=== PATIENT | female | born 1940 | race Caucasian/White ===

== ENCOUNTER 2017-07-15 11:08 | Emergency (ER) | payer MEDICARE ==
[~2017-07-15 11:08] MED LIST: ALPR-138 PO; CELE200 PO; GABA600T PO; TRAM50TA PO
[2017-07-15] MEDS ORDERED: TRAM50TA PO (11:15)
[2017-07-15] MEDS ORDERED: ALBUAER3 INH (11:15)
[2017-07-15] MEDS ORDERED: ALPR0.25 PO (11:15)
[2017-07-15] MEDS ORDERED: GABA800T PO (11:15)
[2017-07-15 11:17] VITALS: BP 125/85; PULSE 100; RESP 22; TEMP 98.8; O2SAT 98
[2017-07-15] MEDS ORDERED: PROMETHAZINE/CODEINE 6.25 MG/10 MG/5 ML CUP PO ONE (11:30)
[2017-07-15] MEDS ORDERED: SODIUM CHLORIDE 0.9% FLUSH 10 ML FLUSH IVF PRN (11:30)
[2017-07-15] MEDS ORDERED: SODIUM CHLOR 0.9% 1000 ML INJ 1,000 ML IV SCH (11:30)
--- NOTE | 2017-07-15 12:00 | RADRPT ---
EXAM DATE/TIME: 07/15/2017 11:47 [facility] COMPARISON: No previous studies available for comparison. INDICATIONS : Shortness of breath, cough, congestion. MEDICAL HISTORY : Arthritis. Smoker. SURGICAL HISTORY : Hysterectomy. ENCOUNTER: Initial ACUITY: 3 days PAIN SCORE: 0/10 LOCATION: Bilateral chest FINDINGS: A single view of the chest demonstrates the lungs to be symmetrically aerated without evidence of mas s, infiltrate or effusion. The cardiomediastinal contours are unremarkable. Osseous structures are intact. CONCLUSION: Mild diffuse interstitial prominence throughout the lungs, no focal infiltrate Stone Salamanca MD on July 15, 2017 at 11:57 Board Certified Radiologist. This report was verified electronically.
[2017-07-15 12:01] VITALS: O2SAT 98
--- NOTE | 2017-07-15 12:02 | PD ---
HPI Chief Complaint: Cold / Flu Symptoms Time Seen by Provider: 11:21 Travel History International Travel<30 days: No Contact w/Intl Traveler<30days: No Traveled to known affect area: No History of Present Illness HPI This is a 77-year-old female who presents to the emergency department with shortness of breath it's been going on for 3-4 days, constant, worse in the evenings associated with a productive cough with clear sputum and some subjective fevers and chills and body aches. She has no history of heart disease or lung disease. She feels fatigued and she hasn't been sleeping well. 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) Psychiatric: Yes (SLIGHTLY CLAUSTROPHOBIC) Reproductive: No Respiratory: Yes (SMOKES 1/2 PPD) Immunizations Current: Yes Thyroid Disease: No Tetanus Vaccination: < 5 Years Menopausal: Yes Past Surgical History Abdominal Surgery: Yes (APPENDECTOMY) AICD: No Body Medical Devices: NONE Cardiac Surgery: No Ear Surgery: No Endocrine Surgery: No Eye Surgery: Yes (R EYE CATARACT REMOVAL 05/2014) Genitourinary Surgery: No Gynecologic Surgery: Yes (TUBAL LIGATION , TOTAL HYSTERECTOMY) Hysterectomy: Yes Joint Replacement: No Oral Surgery: Yes (TONSILLECTOMY; FULL DENTURES) Pacemaker: No Thoracic Surgery: No Other Surgery: Yes Social History Alcohol Use: No Tobacco Use: Yes (1 PK/DAY) Substance Use: No Allergies-Medications (Allergen,Severity, Reaction): Coded Allergies: No Known Allergies (Unverified Adverse Reaction, Unknown, 07/15/17) Reported Meds & Prescriptions Reported Meds & Active Scripts Active Reported Proair Hfa 8.5 GM Inh (Albuterol Sulfate) 90 Mcg/Act Aer 1 Puff INH Q4H PRN 108 mcg/actuation Alprazolam 0.25 Mg Tab 0.25 Mg PO BID PRN Gabapentin 800 Mg Tab 800 Mg PO QID Tramadol (Tramadol HCl) 50 Mg Tab 100 Mg PO Q6H PRN Review of Systems Except as stated in HPI: all other systems reviewed are Neg Physical Exam Narrative GENERAL: Frail elderly female in no acute distress SKIN: Focused skin assessment warm and dry. HEAD: Atraumatic. Normocephalic. EYES: Pupils equal and round. No injection or drainage. ENT: Moist mucous membranes NECK: Trachea midline. CARDIOVASCULAR: Regular rate and rhythm. No murmur appreciated. RESPIRATORY: Rales in the left lung base, no tachypnea or increased work of breathing GASTROINTESTINAL: Abdomen soft, non-tender, nondistended. MUSCULOSKELETAL: No obvious deformities. NEUROLOGICAL: Awake and alert. No obvious cranial nerve deficits. Moving all extremities. PSYCHIATRIC: Appropriate mood and affect; insight and judgment normal. Data Data Last Documented VS Vital Signs Date Time Temp Pulse Resp B/P (MAP) Pulse Ox O2 Delivery O2 Flow Rate FiO2 07/15/17 12:01 98 07/15/17 12:01 07/15/17 11:17 98.8 100 22 Orders Orders Complete Blood Count With Diff (07/15/17 11:28) Comprehensive Metabolic Panel (07/15/17 11:28) B-Type Natriuretic Peptide (07/15/17 11:28) Troponin I (07/15/17 11:28) Iv Access Insert/Monitor (07/15/17 11:28) Electrocardiogram (07/15/17 11:28) Ecg Monitoring (07/15/17 11:28) Oximetry (07/15/17 11:28) Oxygen Administration (07/15/17 11:28) Chest, Single Ap (07/15/17 11:28) Sodium Chloride 0.9% Flush (Ns Flush) (07/15/17 11:30) Sodium Chlor 0.9% 1000 Ml Inj (Ns 1000 M (07/15/17 11:30) Promethazine/Codeine Liq (Phenergan-Code (07/15/17 11:30) Influenzae A/B Antigen (07/15/17 11:28) Labs Laboratory Tests Test 07/15/17 11:50 White Blood Count 9.3 TH/MM3 Red Blood Count 4.36 MIL/MM3 Hemoglobin 13.0 GM/DL Hematocrit 38.9 % Mean Corpuscular Volume 89.1 FL Mean Corpuscular Hemoglobin 29.9 PG Mean Corpuscular Hemoglobin Concent 33.5 % Red Cell Distribution Width 14.7 % Platelet Count 206 TH/MM3 Mean Platelet Volume 10.2 FL Neutrophils (%) (Auto) 83.5 % Lymphocytes (%) (Auto) 7.9 % Monocytes (%) (Auto) 8.2 % Eosinophils (%) (Auto) 0.1 % Basophils (%) (Auto) 0.3 % Neutrophils # (Auto) 7.8 TH/MM3 Lymphocytes # (Auto) 0.7 TH/MM3 Monocytes # (Auto) 0.8 TH/MM3 Eosinophils # (Auto) 0.0 TH/MM3 Basophils # (Auto) 0.0 TH/MM3 CBC Comment DIFF FINAL Differential Comment Blood Urea Nitrogen 14 MG/DL Creatinine 0.66 MG/DL Random Glucose 145 MG/DL Total Protein 6.8 GM/DL Albumin 3.4 GM/DL Calcium Level 8.3 MG/DL Alkaline Phosphatase 121 U/L Aspartate Amino Transf (AST/SGOT) 45 U/L Alanine Aminotransferase (ALT/SGPT) 60 U/L Total Bilirubin 0.7 MG/DL Sodium Level 140 MEQ/L Potassium Level 3.8 MEQ/L Chloride Level 107 MEQ/L Carbon Dioxide Level 23.0 MEQ/L Anion Gap 10 MEQ/L Estimat Glomerular Filtration Rate 87 ML/MIN Troponin I LESS THAN 0.02 NG/ML B-Type Natriuretic Peptide 88 PG/ML MDM Medical Decision Making Medical Screen Exam Complete: Yes Emergency Medical Condition: Yes Interpretation(s) ekg: sinus tachycardia No leukocytosis Mild transaminitis Troponin is normal BNP is normal Last 24 hours Impressions Chest X-Ray 07/15/17 1128 Signed Impressions: Service Date/Time: June 11:47 - CONCLUSION: Mild diffuse interstitial prominence throughout the lungs, no focal infiltrate Stone Salamanca MD Differential Diagnosis pneumonia, bronchitis, viral syndrome, congestive heart failure, pleural effusion Narrative Course This is a 77-year-old female who presents to the emergency department with a persistent cough, generalized weakness and body aches. Chest x-ray demonstrates interstitial prominence throughout the lungs. She was placed on a monitor and an IV was established. Lab work is reassuring with a mild transaminitis and a normal troponin and BNP. I suspect the patient has walking pneumonia. Patient will be treated with azithromycin and codeine. I think she can be discharged home and follow-up with her primary care physician. Diagnosis Primary Impression: Acute interstitial pneumonia Patient Instructions: General Instructions Additional Instructions: If you develop severe chest pain, shortness of breath, sweating, lightheadedness , dizziness or difficulty breathing return to the emergency department immediately. Followup with your primary care physician in 2-3 days if your symptoms are not resolved. Med/Other Pt SpecificInfo: Prescription(s) given Scripts Promethazine-Codeine Liq (Promethazine-Codeine Liq) 6.25-10 Mg/5 Ml Syrp 5 ML PO Q6H Y for COUGH AND/OR COLD SYMPTOMS, #60 ML 0 Refills Prov: Santa Duong MD 07/15/17 Azithromycin (Azithromycin) 250 Mg Tab 250 MG PO DIRECTED for Infection, #6 TAB 0 Refills Take 2 tabs (500 mg) on day 1 then 1 tab daily x 4 days. Prov: Santa Duong MD 07/15/17 Disposition: 01 DISCHARGE HOME Condition: Stable Santa Duong MD Jul 15, 2017 12:02
[2017-07-15 12:07] LABS: AUTOMATED NEUTROPHIL # 7.8 TH/MM3 (1.8-7.7); BASOPHIL % 0.3 % (0.0-2.0); EOSINOPHIL % 0.1 % (0.0-4.0); HEMATOCRIT 38.9 % (35.0-46.0); LYMPH % 7.9 % (9.0-44.0); LYMPHOCYTE # 0.7 TH/MM3 (1.0-4.8); MEAN CELL VOLUME 89.1 FL (80.0-100.0); MEAN CORPUSCULAR HEMOGLOBIN 29.9 PG (27.0-34.0); MEAN CORPUSCULAR HGB CONC 33.5 % (32.0-36.0); MEAN PLATELET VOLUME 10.2 FL (7.0-11.0); MONO % 8.2 % (0.0-8.0); MONOCYTE # 0.8 TH/MM3 (0-0.9); NEUT % 83.5 % (16.0-70.0); PLATELET COUNT 206 TH/MM3 (150-450); RED BLOOD COUNT 4.36 MIL/MM3 (4.00-5.30); RED CELL DISTRIBUTION WIDTH 14.7 % (11.6-17.2); WHITE BLOOD COUNT 9.3 TH/MM3 (4.0-11.0)
[2017-07-15 12:26] LABS: ALBUMIN 3.4 GM/DL (3.4-5.0); AST (GOT) 45 U/L (15-37); BLOOD UREA NITROGEN 14 MG/DL (7-18); CALCIUM 8.3 MG/DL (8.5-10.1); CHLORIDE 107 MEQ/L (98-107); CREATININE 0.66 MG/DL (0.50-1.00); GLOMERULAR FILTRATION RATE 87 ML/MIN (>89); GLUCOSE,RANDOM 145 MG/DL (74-106); SODIUM (NA) 140 MEQ/L (136-145)
[2017-07-15 12:27] LABS: ALT (GPT) 60 U/L (10-53)
[2017-07-15 12:30] LABS: ALKALINE PHOSPHATASE 121 U/L (45-117); TOTAL BILIRUBIN ADULT 0.7 MG/DL (0.2-1.0); TOTAL PROTEIN 6.8 GM/DL (6.4-8.2); TROPONIN I LESS THAN 0.02 NG/ML (0.02-0.05)
[2017-07-15] MEDS ORDERED: PROM6.256 PO (13:10)
[2017-07-15] MEDS ORDERED: AZIT250T3 PO (13:10)
[2017-07-15] MEDS ORDERED: PRED20 PO (13:24)
[2017-07-15] MEDS ORDERED: methylPREDNISolone SOD SUCC 125 MG/2 ML VIAL IV PUSH ONE (13:30)
--- NOTE | 2017-07-16 23:44 | EKG ---
Date Performed: 07/15/2017 Time Performed: 12:01:10 PTAGE: 77 years EKG: SINUS TACHYCARDIA LOW QRS VOLTAGE NON-SPECIFIC ST/T WAVE CHANGES ABNORMAL ECG PREVIOUS TRACING : 07/15/2017 11.59 Compared to the previous tracing, rate has increased with n on-specific ST/T wave changes DOCTOR: Omar Sow Interpretating Date/Time 07/16/2017 23:42:36
== END 2017-07-15 13:35 | disposition home or self-care (01) ==
LOC: NEPD 11:08
DX: J84.9 Interstitial pulmonary disease, unspecified (principal); R00.0 Tachycardia, unspecified; R94.31 Abnormal electrocardiogram [ECG] [EKG]; M19.90 Unspecified osteoarthritis, unspecified site; G62.9 Polyneuropathy, unspecified; F40.240 Claustrophobia; F17.200 Nicotine dependence, unspecified, uncomplicated; Z79.899 Other long term (current) drug therapy
CPT/HCPCS: 71010; 80053; 83880; 84484; 85025; 87804; 93005; 96361; 96374; 99285; J2930; J7030

== ENCOUNTER 2017-07-16 08:51 | Inpatient (IN) | payer MEDICARE ==
[~2017-07-16] VITALS: Ht 160 cm; Wt 53.6 kg
[2017-07-16] VITALS (13 sets, daily range): BP systolic 70–175; BP diastolic 36–117; PULSE 88–115; RESP 17–28; TEMP 97.4–98.7; O2SAT 71–100
[~2017-07-16 08:51] MED LIST changes: +ALBUAER3 INH; -ALPR-138 PO; +ALPR0.25 PO; +AZIT250T3 PO; -CELE200 PO; -GABA600T PO; +GABA800T PO; +PRED20 PO; +PROM6.256 PO
[2017-07-16] MEDS ORDERED: CEFEPIME INJ 2,000 MG in SODIUM CHLORIDE 0.9% INJ 100 ML IV STA (09:08)
[2017-07-16] MEDS ORDERED: AZITHROMYCIN INJ 500 MG in SODIUM CHLOR 0.9% 250 ML INJ 250 ML IV STA (09:08)
[2017-07-16] MEDS ORDERED: RESP: ALBUTEROL 2.5 MG/IPRATROPIUM 0.5 MG NEB (SCH) INH ONE (09:15)
[2017-07-16] MEDS ORDERED: SODIUM CHLOR 0.9% 1000 ML INJ 1,000 ML IV ONE ×4 (09:15→12:00)
[2017-07-16 09:30] LABS: HEMATOCRIT 40.3 % (35.0-46.0); HEMOGLOBIN 13.1 GM/DL (11.6-15.3); LYMPH % 10.6 % (9.0-44.0); LYMPHOCYTE # 1.3 TH/MM3 (1.0-4.8); MEAN CELL VOLUME 90.7 FL (80.0-100.0); MEAN CORPUSCULAR HEMOGLOBIN 29.5 PG (27.0-34.0); MEAN CORPUSCULAR HGB CONC 32.5 % (32.0-36.0); MEAN PLATELET VOLUME 10.2 FL (7.0-11.0); MONOCYTE # 1.1 TH/MM3 (0-0.9); NEUT % 80.4 % (16.0-70.0); PLATELET COUNT 210 TH/MM3 (150-450); RED BLOOD COUNT 4.44 MIL/MM3 (4.00-5.30); RED CELL DISTRIBUTION WIDTH 15.7 % (11.6-17.2); WHITE BLOOD COUNT 12.5 TH/MM3 (4.0-11.0)
[2017-07-16 09:40] LABS: INTERNATIONAL NORMALIZED RATIO 1.3 RATIO; PROTHROMBIN TIME - PATIENT 12.7 SEC (9.8-11.6)
[2017-07-16 09:42] LABS: ALBUMIN 3.7 GM/DL (3.4-5.0); ALT (GPT) 60 U/L (10-53); AST (GOT) 34 U/L (15-37); BICARBONATE 18.6 MEQ/L (21.0-32.0); BLOOD UREA NITROGEN 30 MG/DL (7-18); CALCIUM 8.6 MG/DL (8.5-10.1); CHLORIDE 103 MEQ/L (98-107); CREATININE 1.68 MG/DL (0.50-1.00); GLOMERULAR FILTRATION RATE 29 ML/MIN (>89); GLUCOSE,RANDOM 200 MG/DL (74-106); LIPASE 117 U/L (73-393); SODIUM (NA) 138 MEQ/L (136-145)
[2017-07-16] MEDS ORDERED: RESP: ALBUTEROL 2.5 MG/IPRATROPIUM 0.5 MG NEB (SCH) NEB ONE (09:45)
[2017-07-16 09:47] LABS: ALKALINE PHOSPHATASE 122 U/L (45-117); TOTAL BILIRUBIN ADULT 0.6 MG/DL (0.2-1.0); TOTAL PROTEIN 7.3 GM/DL (6.4-8.2); TROPONIN I LESS THAN 0.02 NG/ML (0.02-0.05)
[2017-07-16 09:50] LABS: LACTIC ACID SEPSIS PROTOCOL 7.3 mmol/L (0.4-2.0)
[2017-07-16] MEDS ORDERED: ONDANSETRON HCL 4 MG/2 ML VIAL ONE (10:12)
--- NOTE | 2017-07-16 10:16 | RADRPT ---
EXAM DATE/TIME: 07/16/2017 09:52 [facility] COMPARISON: CHEST SINGLE AP, July 15, 2017, 11:47. INDICATIONS : Shortness of Breath MEDICAL HISTORY : Chronic obstructive pulmonary disease. SURGICAL HISTORY : Hysterectomy. ENCOUNTER: Initial ACUITY: 1 day PAIN SCORE: 0/10 LOCATION: Bilateral chest FINDINGS: Stable mild diffuse interstitial prominence. No new focal pleural or parenchymal opacities. Cardiac s ilhouette is enlarged similar to prior exam. Osseous structures are intact. CONCLUSION: 1. Cardiomegaly with stable mild positive fluid balance. 2. No significant interval change. Jack Barrientos MD on July 16, 2017 at 10:13 Board Certified Radiologist. This report was verified electronically.
[2017-07-16] MEDS ORDERED: NOREPINEPHRINE-DEXTROSE DRIP 250 ML IV PRN (11:30)
[2017-07-16] MEDS ORDERED: TERBUTALINE INJ 1 MG/ML AMP SQ PRN ×2 (11:30→19:45)
--- NOTE | 2017-07-16 11:30 | RADRPT ---
EXAM DATE/TIME: 07/16/2017 11:04 [facility] COMPARISON: CHEST SINGLE AP, July 16, 2017, 9:52. INDICATIONS : Post procedure. MEDICAL HISTORY : Chronic obstructive pulmonary disease. SURGICAL HISTORY : Hysterectomy. ENCOUNTER: Subsequent ACUITY: 1 day PAIN SCORE: 0/10 LOCATION: Bilateral chest FINDINGS: Right IJ central line with tip in the very proximal right atrium. Cardiac silhouette is enlarged. No new focal pleural or parenchymal opacities. No pneumothorax. Remainder of the exam is unchanged. CONCLUSION: 1. Right IJ central line with tip in the proximal right atrium. No pneumothorax. 2. Cardiomegaly with stable mild positive fluid balance. Jack Barrientos MD on July 16, 2017 at 11:27 Board Certified Radiologist. This report was verified electronically.
--- NOTE | 2017-07-16 11:43 | PD ---
HPI Chief Complaint: Respiratory Distress Time Seen by Provider: 09:05 Travel History International Travel<30 days: No Contact w/Intl Traveler<30days: No Traveled to known affect area: No History of Present Illness HPI Patient is a 77-year-old female who comes in from her doctor's office due to hypoxia and shortness of breath. She was seen here yesterday diagnosed with pneumonia and discharged with a prescription for azithromycin. She went to follow-up with her primary doctor today as directed, but while in the office, she passed out. She says she just been feeling very weak. Per EMS, she was cyanotic in the doctor's office. Her only complaint is of weakness and difficulty breathing. Per , she fell last night and her daughter helped her up. She denies any chest pain or abdominal pain. 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) Psychiatric: Yes (SLIGHTLY CLAUSTROPHOBIC) Reproductive: No Respiratory: Yes (SMOKES 1/2 PPD) Immunizations Current: Yes Thyroid Disease: No Menopausal: Yes Tubal Ligation: Yes Past Surgical History Abdominal Surgery: Yes (APPENDECTOMY) AICD: No Appendectomy: Yes Body Medical Devices: NONE Cardiac Surgery: No Ear Surgery: No Endocrine Surgery: No Eye Surgery: Yes (R EYE CATARACT REMOVAL 05/2014) Genitourinary Surgery: No Gynecologic Surgery: Yes (TUBAL LIGATION , TOTAL HYSTERECTOMY) Hysterectomy: Yes Joint Replacement: No Oral Surgery: Yes (TONSILLECTOMY; FULL DENTURES) Pacemaker: No Thoracic Surgery: No Other Surgery: Yes Social History Alcohol Use: No Tobacco Use: Yes Substance Use: No Allergies-Medications (Allergen,Severity, Reaction): Coded Allergies: No Known Allergies (Verified Adverse Reaction, Unknown, 07/16/17) Reported Meds & Prescriptions Reported Meds & Active Scripts Active Prednisone 20 Mg Tab 40 Mg PO DIRECTED 4 Days Promethazine-Codeine Liq 6.25-10 Mg/5 Ml Syrp 5 Ml PO Q6H PRN Azithromycin 250 Mg Tab 250 Mg PO DIRECTED Take 2 tabs (500 mg) on day 1 then 1 tab daily x 4 days. Reported Proair Hfa 8.5 GM Inh (Albuterol Sulfate) 90 Mcg/Act Aer 1 Puff INH Q4H PRN 108 mcg/actuation Alprazolam 0.25 Mg Tab 0.25 Mg PO BID PRN Gabapentin 800 Mg Tab 800 Mg PO QID Tramadol (Tramadol HCl) 50 Mg Tab 100 Mg PO Q6H PRN Review of Systems Except as stated in HPI: all other systems reviewed are Neg General / Constitutional: No: Fever, Chills Eyes: No: Blurred Vision HENT: No: Headaches, Lightheadedness Cardiovascular: No: Chest Pain or Discomfort Respiratory: Positive: Shortness of Breath, No: Cough Gastrointestinal: Positive: Nausea, No: Vomiting Musculoskeletal: No: Edema, Pain Skin: No Rash, No Change in Pigmentation Neurologic: Positive: Weakness Physical Exam Narrative GENERAL: Lethargic, but awakens easily. SKIN: Focused skin assessment warm/dry. HEAD: Atraumatic. Normocephalic. EYES: Pupils equal and round and reactive. No scleral icterus. Extraocular movements intact. ENT: Mucous membranes pink and moist. NECK: Trachea midline. No JVD. CARDIOVASCULAR: Regular rate and rhythm. No murmur appreciated. RESPIRATORY: No accessory muscle use. Clear to auscultation. Breath sounds equal bilaterally. GASTROINTESTINAL: Abdomen soft, non-tender, nondistended. MUSCULOSKELETAL: No obvious deformities. No clubbing. No cyanosis. No edema. NEUROLOGICAL: Awake and alert. No obvious cranial nerve deficits. Motor grossly within normal limits. Normal speech. PSYCHIATRIC: Appropriate mood and affect; insight and judgment normal. Data Data Last Documented VS Vital Signs Date Time Temp Pulse Resp B/P (MAP) Pulse Ox O2 Delivery O2 Flow Rate FiO2 07/16/17 12:15 159/79 (105) 07/16/17 12:15 88 07/16/17 09:33 98.4 24 100 BiPAP 07/16/17 09:04 80 Orders Orders Sepsis Workup Initiated (07/16/17 ) Electrocardiogram (07/16/17 09:08) Complete Blood Count With Diff (07/16/17 09:08) Comprehensive Metabolic Panel (07/16/17 09:08) Prothrombin Time / Inr (Pt) (07/16/17 09:08) Act Partial Throm Time (Ptt) (07/16/17 09:08) Lactic Acid Sepsis Protocol (07/16/17 09:08) Lipase (07/16/17 09:08) Ckmb (Isoenzyme) Profile (07/16/17 09:08) Troponin I (07/16/17 09:08) Urinalysis - C+S If Indicated (07/16/17 09:08) Blood Culture (07/16/17 09:08) Chest, Single Ap (07/16/17 09:08) Blood Glucose (07/16/17 09:08) Ecg Monitoring (07/16/17 09:08) Iv Access Insert/Monitor (07/16/17 09:08) Oximetry (07/16/17 09:08) Oxygen Administration (07/16/17 09:08) Cefepime Inj (Maxipime Inj) (07/16/17 09:08) Azithromycin Inj (Zithromax Inj) (07/16/17 09:08) Albuterol-Ipratropium Neb (Duoneb Neb) (07/16/17 09:15) Sodium Chlor 0.9% 1000 Ml Inj (Ns 1000 M (07/16/17 09:15) Sodium Chlor 0.9% 1000 Ml Inj (Ns 1000 M (07/16/17 09:15) Albuterol-Ipratropium Neb (Duoneb Neb) (07/16/17 09:45) Arterial Blood Gas (Abg) (07/16/17 ) CKMB (07/16/17 09:12) CKMB% (07/16/17 09:12) Ondansetron Inj (Zofran Inj) (07/16/17 10:12) Blood Gas Venous (Vbg) (07/16/17 10:06) Chest, Single Ap (07/16/17 ) Lactic Acid (07/16/17 11:15) Sodium Chlor 0.9% 1000 Ml Inj (Ns 1000 M (07/16/17 11:30) Norepinephrine-Dextrose Drip (Levophed-D (07/16/17 11:30) Terbutaline Inj (Brethine Inj) (07/16/17 11:30) Ondansetron Inj (Zofran Inj) (07/16/17 12:15) Metoclopramide Inj (Reglan Inj) (07/16/17 12:15) Admit Order (Ed Use Only) (07/16/17 ) Vancomycin Inj (Vancomycin Inj) (07/16/17 12:15) Labs Laboratory Tests Test 07/16/17 09:12 07/16/17 10:06 07/16/17 11:15 07/16/17 11:29 White Blood Count 12.5 TH/MM3 Red Blood Count 4.44 MIL/MM3 Hemoglobin 13.1 GM/DL Hematocrit 40.3 % Mean Corpuscular Volume 90.7 FL Mean Corpuscular Hemoglobin 29.5 PG Mean Corpuscular Hemoglobin Concent 32.5 % Red Cell Distribution Width 15.7 % Platelet Count 210 TH/MM3 Mean Platelet Volume 10.2 FL Neutrophils (%) (Auto) 80.4 % Lymphocytes (%) (Auto) 10.6 % Monocytes (%) (Auto) 9.0 % Eosinophils (%) (Auto) 0.0 % Basophils (%) (Auto) 0.0 % Neutrophils # (Auto) 10.0 TH/MM3 Lymphocytes # (Auto) 1.3 TH/MM3 Monocytes # (Auto) 1.1 TH/MM3 Eosinophils # (Auto) 0.0 TH/MM3 Basophils # (Auto) 0.0 TH/MM3 CBC Comment DIFF FINAL Differential Comment Prothrombin Time 12.7 SEC Prothromb Time International Ratio 1.3 RATIO Activated Partial Thromboplast Time 24.2 SEC Blood Urea Nitrogen 30 MG/DL Creatinine 1.68 MG/DL Random Glucose 200 MG/DL Total Protein 7.3 GM/DL Albumin 3.7 GM/DL Calcium Level 8.6 MG/DL Alkaline Phosphatase 122 U/L Aspartate Amino Transf (AST/SGOT) 34 U/L Alanine Aminotransferase (ALT/SGPT) 60 U/L Total Bilirubin 0.6 MG/DL Sodium Level 138 MEQ/L Potassium Level 4.0 MEQ/L Chloride Level 103 MEQ/L Carbon Dioxide Level 18.6 MEQ/L Anion Gap 16 MEQ/L Estimat Glomerular Filtration Rate 29 ML/MIN Lactic Acid Level 7.3 mmol/L 6.6 mmol/L Total Creatine Kinase 161 U/L Creatine Kinase MB 1.7 NG/ML Troponin I LESS THAN 0.02 NG/ML Lipase 117 U/L Blood Gas Puncture Site INTRA-VENOUS RT FEMORAL Blood Gas Patient Temperature 98.6 98.6 Venous Blood pH 7.19 Venous Blood Partial Pressure CO2 41 mmHg Venous Blood Partial Pressure O2 44 mmHg Venous Blood HCO3 15 mmol/L Venous Blood Oxygen Saturation 58 % Venous Blood Oxygen Content 9.1 Vol % Venous Blood Base Excess -11.5 mmol/L Oxygen Delivery Device BIPAP Non-Rebreathing Mask Blood Gas Ventilator Setting IPAP15/[id number] Blood Gas Inspired Oxygen 70 % 100 % Blood Gas HCO3 11 mmol/L Blood Gas Base Excess -14.6 mmol/L Blood Gas Oxygen Saturation 99 % Arterial Blood pH 7.26 Arterial Blood Partial Pressure CO2 26 mmHg Arterial Blood Partial Pressure O2 275 mmHG Arterial Blood Oxygen Content 16.5 Vol % Arterial Blood Carboxyhemoglobin 0.2 % Arterial Blood Methemoglobin 0.3 % Blood Gas Hemoglobin 11.4 G/DL Blood Gas Liter Flow 15 L/M Test 07/16/17 11:45 Urine Color YELLOW Urine Turbidity CLEAR Urine pH 6.0 Urine Specific [place] 1.031 Urine Protein 100 mg/dL Urine Glucose (UA) TRACE mg/dL Urine Ketones 10 mg/dL Urine Occult Blood MOD Urine Nitrite NEG Urine Bilirubin NEG Urine Urobilinogen 4.0 MG/DL Urine Leukocyte Esterase NEG Urine RBC 113 /hpf Urine WBC 1 /hpf Urine Hyaline Casts 3 /lpf Urine Mucus FEW /lpf Microscopic Urinalysis Comment CATH-CULT NOT IND MDM Medical Decision Making Medical Screen Exam Complete: Yes Emergency Medical Condition: Yes Medical Record Reviewed: Yes Interpretation(s) ECG shows sinus rhythm at 85, no ST elevation or depression, normal intervals Differential Diagnosis Sepsis versus pneumonia versus UTI versus PE versus ACS versus CHF Narrative Course Patient is a 77-year-old female who comes in from the doctor's office due to shortness of breath and weakness. EMS had an oxygen saturation in the 80s while on nonrebreather, patient was started on BiPAP. Blood pressure cannot be obtained, 2 L of fluids were given. Blood pressure improved into the 70s systolic. Labs sent show a lactic acid of 7.3. She was given an additional liter of fluids. However, she does have some fluid backing up into her lungs. Decision made to start her on Levophed. Right IJ was placed. Patient covered with broad-spectrum antibiotics, cefepime and azithromycin and vancomycin. CT scan ordered to check for PE, however GFR makes this test impossible. V/Q scan ordered. CT head ordered as patient fell last night. Given 3rd L of IVF. Patient will be admitted for further management. Critical Care Narrative Aggregate critical care time was 45 minutes. Time to perform other separately billable procedures was not included in the critical care time. My time did not include minutes spent treating any other patients simultaneously or on activities that did not directly contribute to the patient's treatment. The services I provided to this patient were to treat and/or prevent clinically significant deterioration that could result in: Serious illness or I provided critical care services requiring my management, as noted below: Chart data review, documentation time, medication orders and management, vital sign assessments/reviewing monitor data, ordering and reviewing lab tests, ordering and interpreting/reviewing x-rays and diagnostic studies, care of the patient and discussion of the patient with the admitting physicians. Procedures Procedure Narrative CENTRAL VENOUS LINE: The site was prepped with Betadine and sterilely draped. It was infiltrated with 1% lidocaine plain. The deep vein was cannulated using normal Seldinger technique. A triple lumen central line was placed in the right IJ site and secured with simple interrupted suture. The site was sterilely dressed. The patient tolerated the procedure well. Diagnosis Primary Impression: Severe sepsis Admitting Information Admitting Physician Requests: Admit Mary Gan MD Jul 16, 2017 11:43
[2017-07-16 12:09] LABS: BLOOD, URINE MOD (NEG); GLUCOSE,URINE TRACE mg/dL (NEG); HYALINE CAST, URINE 3 /lpf (RARE); KETONE, URINE 10 mg/dL (NEG); MUCUS URINE FEW /lpf (OCC); NITRITE,URINE NEG (NEG); URINE COLOR YELLOW (YELLW/STRAW); URINE LEUKOCYTE ESTERASE NEG (NEG)
[2017-07-16 12:12] LABS: BILIRUBIN, URINE NEG (NEG)
[2017-07-16] MEDS ORDERED: METOCLOPRAMIDE INJ 10 MG in SODIUM CHLORIDE 0.9% INJ 50 ML IV ONE (12:15)
[2017-07-16] MEDS ORDERED: ONDANSETRON HCL 4 MG/2 ML VIAL IV PUSH ONE (12:15)
[2017-07-16] MEDS ORDERED: VANCOMYCIN INJ 1,100 MG in SODIUM CHLOR 0.9% 250 ML INJ 250 ML IV ONE (12:15)
[2017-07-16] MEDS ORDERED: SODIUM BICARBONATE 8.4% INJ 50 MEQ/50 ML SYR IV PUSH ONE (13:00)
[2017-07-16] MEDS ORDERED: SENNOSIDES 8.6 MG TAB PO PRN (13:15)
[2017-07-16] MEDS ORDERED: GLUCAGON 1 MG/ML VIAL OTHER PRN (13:15)
[2017-07-16] MEDS ORDERED: LACTULOSE SYRUP 20 GM/30 ML CUP PO PRN (13:15)
[2017-07-16] MEDS ORDERED: SODIUM CHLORIDE 0.9% FLUSH 10 ML FLUSH IV FLUSH PRN ×2 (13:15→16:30)
[2017-07-16] MEDS ORDERED: ACETAMINOPHEN 325 MG TAB PO PRN ×2 (13:15→17:00)
[2017-07-16] MEDS ORDERED: MAGNESIUM HYDROXIDE SUSP 30 ML CUP PO PRN (13:15)
[2017-07-16] MEDS ORDERED: MISCELLANEOUS NURSING INFORMATION XX SCH (13:15)
[2017-07-16] MEDS ORDERED: BISACODYL 10 MG SUPP RECTAL PRN (13:15)
[2017-07-16] MEDS ORDERED: ONDANSETRON HCL 4 MG/2 ML VIAL IV PUSH PRN ×2 (13:15→16:30)
[2017-07-16] MEDS ORDERED: RESP: ALBUTEROL 2.5 MG/IPRATROPIUM 0.5 MG NEB (PRN) NEB (13:15)
[2017-07-16] MEDS ORDERED: DEXTROSE 50% IN WATER 50 ML VIAL(D50) IV PUSH PRN ×2 (13:15→16:30)
[2017-07-16] MEDS ORDERED: CHLORHEXIDINE GLUCONATE 2 % 1 PACK (2 CLOTHS) TOP PRN (13:15)
[2017-07-16] MEDS ORDERED: Vancomycin Consult Pharmacy 1 EA OTHER SCH (13:15)
--- NOTE | 2017-07-16 13:40 | HHI.HP ---
[facility] Service Critical Care Medicine Primary Care Physician Hima Marion, DO Admission Diagnosis Severe sepsis Diagnosis: Travel History International Travel<30 Days: No Contact w/Intl Traveler <30 Da: No Traveled to Known Affected Are: No Sepsis Criteria Severe Sepsis (+one): Lactate >2 History of Present Illness This is a 77-year-old female that presented from PCP office via ambulance due to hypoxia and shortness of breath. She was seen at [facility] diagnosed with pneumonia and discharged with a prescription for azithromycin, at that time her BP in P was within normal limits, and troponin was notably less than 0.02, and influenza antigen negative. Last evening it was reported by her in the middle of the night the patient went to the bathroom and fell question unknown if there was any LOC, her daughter picked her up and put her back to bed . This a.m., she was transported by family for follow-up with her PCP today as directed, but while in the office, she passed out. Per EMS, she was cyanotic in the doctor's office. Her only complaint is of weakness and difficulty breathing. She denied any chest pain or abdominal pain. Upon admission to the ED today the patient was noted to have an elevated lactate level, mild leukocytosis with a metabolic acidosis. The patient was noted to be hypotensive systolic blood pressure in the 70s, venous ABG was drawn her SVO2 was notably 58. The patient was bolused with 2 L IV fluid, and received azithromycin 500 mg, vancomycin 1 g, and cefepime 2 g. a central line was placed and the patient was initiated on norepinephrine infusion .The patient is was notably audibly wheezing initially on nonrebreather received 2 DuoNeb treatments and subsequently had been weaned down to nasal cannula 3 L with O2 saturation greater than 92%. A D-dimer was ordered. The patient upon presentation to the ED to be lethargic, easily arousable and answering questions appropriately. Upon entering the ED, the patient was lethargic but arousable answering my questions, blood pressure was 159/over 70s on norepinephrine at 2 mcgs/minute. Imaging studies CT brain, and chest are still pending. Critical care medicine was consulted. History 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) Psychiatric: Yes (SLIGHTLY CLAUSTROPHOBIC) Reproductive: No Respiratory: Yes (SMOKES 1/2 PPD) Immunizations Current: Yes Thyroid Disease: No Menopausal: Yes Tubal Ligation: Yes Past Surgical History Abdominal Surgery: Yes (APPENDECTOMY) AICD: No Appendectomy: Yes Body Medical Devices: NONE Cardiac Surgery: No Ear Surgery: No Endocrine Surgery: No Eye Surgery: Yes (R EYE CATARACT REMOVAL 05/2014) Genitourinary Surgery: No Gynecologic Surgery: Yes (TUBAL LIGATION , TOTAL HYSTERECTOMY) Hysterectomy: Yes Joint Replacement: No Oral Surgery: Yes (TONSILLECTOMY; FULL DENTURES) Pacemaker: No Thoracic Surgery: No Other Surgery: Yes Social History Alcohol Use: No Tobacco Use: Yes Substance Use: No Allergies-Medications Allergies-Medications (Allergen,Severity, Reaction): Coded Allergies: No Known Allergies (Verified Adverse Reaction, Unknown, 07/16/17) Reported Meds & Prescriptions Reported Meds & Active Scripts Active Prednisone 20 Mg Tab 40 Mg PO DIRECTED 4 Days Promethazine-Codeine Liq 6.25-10 Mg/5 Ml Syrp 5 Ml PO Q6H PRN Azithromycin 250 Mg Tab 250 Mg PO DIRECTED Take 2 tabs (500 mg) on day 1 then 1 tab daily x 4 days. Reported Proair Hfa 8.5 GM Inh (Albuterol Sulfate) 90 Mcg/Act Aer 1 Puff INH Q4H PRN 108 mcg/actuation Alprazolam 0.25 Mg Tab 0.25 Mg PO BID PRN Gabapentin 800 Mg Tab 800 Mg PO QID Tramadol (Tramadol HCl) 50 Mg Tab 100 Mg PO Q6H PRN ROS Review of Systems Except as stated in HPI: all other systems reviewed are Neg General / Constitutional: No: Fever, Chills Eyes: No: Blurred Vision HENT: No: Headaches, Lightheadedness Cardiovascular: No: Chest Pain or Discomfort Respiratory: Positive: Shortness of Breath, No: Cough Gastrointestinal: Positive: Nausea, No: Vomiting Musculoskeletal: No: Edema, Pain Skin: No Rash, No Change in Pigmentation Neurologic: Positive: Weakness Physical Exam Vital Signs Vital Signs Date Time Temp Pulse Resp B/P (MAP) Pulse Ox O2 Delivery O2 Flow Rate FiO2 07/16/17 12:15 88 159/79 07/16/17 11:00 79/48 (58) 07/16/17 10:30 88 175/110 (131) 07/16/17 09:33 98.4 97 24 171/117 (135) 100 BiPAP 07/16/17 09:04 100 80 07/16/17 08:53 108 28 72/36 (48) 72 Physical Exam GENERAL: This is a petite critically ill appearing female, in mild distress currently on nasal cannula SKIN: Warm and dry. Poor skin turgor, dry HEAD: Atraumatic. Normocephalic. EYES: Pupils equal and round and 3 mm reactive. EOMI No scleral icterus. No injection or drainage. ENT: No nasal bleeding or discharge. Mucous membranes pink and moist. NECK: Trachea midline. No JVD. CARDIOVASCULAR: Normal rate, regular rhythm.Muffled heart sounds RESPIRATORY: No accessory muscle use. Moderate inspiratory and expiratory wheezing. Breath sounds equal bilaterally. O2 3 L nasal cannula GASTROINTESTINAL: Abdomen soft, non-tender, nondistended. No guarding. MUSCULOSKELETAL: Extremities without clubbing, cyanosis, or edema. No obvious deformities. NEUROLOGICAL: Awake and alert. RASS -1. No gross focal/sensory deficits. Cranial nerves II-XII grossly intact Follows commands in all 4 extremities. Laboratory Laboratory Tests Test 07/16/17 09:12 07/16/17 10:06 07/16/17 11:15 07/16/17 11:29 White Blood Count 12.5 Red Blood Count 4.44 Hemoglobin 13.1 Hematocrit 40.3 Mean Corpuscular Volume 90.7 Mean Corpuscular Hemoglobin 29.5 Mean Corpuscular Hemoglobin Concent 32.5 Red Cell Distribution Width 15.7 Platelet Count 210 Mean Platelet Volume 10.2 Neutrophils (%) (Auto) 80.4 Lymphocytes (%) (Auto) 10.6 Monocytes (%) (Auto) 9.0 Eosinophils (%) (Auto) 0.0 Basophils (%) (Auto) 0.0 Neutrophils # (Auto) 10.0 Lymphocytes # (Auto) 1.3 Monocytes # (Auto) 1.1 Eosinophils # (Auto) 0.0 Basophils # (Auto) 0.0 CBC Comment DIFF FINAL Differential Comment Prothrombin Time 12.7 Prothromb Time International Ratio 1.3 Activated Partial Thromboplast Time 24.2 Blood Urea Nitrogen 30 Creatinine 1.68 Random Glucose 200 Total Protein 7.3 Albumin 3.7 Calcium Level 8.6 Alkaline Phosphatase 122 Aspartate Amino Transf (AST/SGOT) 34 Alanine Aminotransferase (ALT/SGPT) 60 Total Bilirubin 0.6 Sodium Level 138 Potassium Level 4.0 Chloride Level 103 Carbon Dioxide Level 18.6 Anion Gap 16 Estimat Glomerular Filtration Rate 29 Lactic Acid Level 7.3 6.6 Total Creatine Kinase 161 Creatine Kinase MB 1.7 Troponin I LESS THAN 0.02 Lipase 117 Blood Gas Puncture Site INTRA-VENOUS RT FEMORAL Blood Gas Patient Temperature 98.6 98.6 Venous Blood pH 7.19 Venous Blood Partial Pressure CO2 41 Venous Blood Partial Pressure O2 44 Venous Blood HCO3 15 Venous Blood Oxygen Saturation 58 Venous Blood Oxygen Content 9.1 Venous Blood Base Excess -11.5 Oxygen Delivery Device BIPAP Non-Rebreathing Mask Blood Gas Ventilator Setting IPAP15/EPAP5 Blood Gas Inspired Oxygen 70 100 Blood Gas HCO3 11 Blood Gas Base Excess -14.6 Blood Gas Oxygen Saturation 99 Arterial Blood pH 7.26 Arterial Blood Partial Pressure CO2 26 Arterial Blood Partial Pressure O2 275 Arterial Blood Oxygen Content 16.5 Arterial Blood Carboxyhemoglobin 0.2 Arterial Blood Methemoglobin 0.3 Blood Gas Hemoglobin 11.4 Blood Gas Liter Flow 15 Test 07/16/17 11:45 Urine Color YELLOW Urine Turbidity CLEAR Urine pH 6.0 Urine Specific [place] 1.031 Urine Protein 100 Urine Glucose (UA) TRACE Urine Ketones 10 Urine Occult Blood MOD Urine Nitrite NEG Urine Bilirubin NEG Urine Urobilinogen 4.0 Urine Leukocyte Esterase NEG Urine RBC 113 Urine WBC 1 Urine Hyaline Casts 3 Urine Mucus FEW Microscopic Urinalysis Comment CATH-CULT NOT IND Date/Time Source Procedure Growth Status 07/16/17 09:22 Blood Peripheral Aerobic Blood Culture Pending Received 07/16/17 09:22 Blood Peripheral Anaerobic Blood Culture Pending Received Result Diagram: 07/16/1712 07/16/1712 Imaging Last Impressions Chest X-Ray 07/16/17 0908 Signed Impressions: Service Date/Time: Sunday, July 16, 2017 09:52 - CONCLUSION: 1. Cardiomegaly with stable mild positive fluid balance. 2. No significant interval change. Jack Barrientos MD Course Pt subsequently went for imaging studies and became hemodynamically unstable in Nuclear Med. Pt stat transported to CVICU. Arterial line placed Pulsus paradoxicus. Stat EKG, low voltage all leads. Stat ECHO, noted Pericardial effusion. Stat consult to CTS, Dr Canales, to OR emergently for Pericardial Window. Septic Shock Reassessment Septic shock perfusion: reassessment completed Caprini VTE Risk Assessment Caprini VTE Risk Assessment: Mod/High Risk (score >= 2) Caprini Risk Assessment Model Point Value = 1 Point Value = 2 Point Value = 3 Point Value = 5 Age 41-60 Minor surgery BMI > 25 kg/m2 Swollen legs Varicose veins or History of unexplained or recurrent spontaneous Oral contraceptives or hormone replacement Sepsis (< 1 month) Serious lung disease, including pneumonia (< 1 month) Abnormal pulmonary function Acute myocardial infarction Congestive heart failure (< 1 month) History of inflammatory bowel disease Medical patient at bed rest Age 61-74 Arthroscopic surgery Major open surgery (> 45 min) Laparoscopic surgery (> 45 min) Malignancy Confined to bed (> 72 hours) Immobilizing plaster cast Central venous access Age >= 75 History of VTE Family history of VTE Factor V Leiden Prothrombin [id number] Lupus anticoagulant Anticardiolipin antibodies Elevated serum homocysteine Heparin-induced thrombocytopenia Other congenital or acquired thrombophilia Stroke (< 1 month) Elective arthroplasty Hip, pelvis, or leg fracture Acute spinal cord injury (< 1 month) Prophylaxis Regimen Total Risk Factor Score Risk Level Prophylaxis Regimen 0-1 Low Early ambulation 2 Moderate Order ONE of the following: *Sequential Compression Device (SCD) *Heparin 5000 units SQ BID 3-4 Higher Order ONE of the following medications: *Heparin 5000 units SQ TID *Enoxaparin/Lovenox 40 mg SQ daily (WT < 150 kg, CrCl > 30 mL/min) *Enoxaparin/Lovenox 30 mg SQ daily (WT < 150 kg, CrCl > 10-29 mL/min) *Enoxaparin/Lovenox 30 mg SQ BID (WT < 150 kg, CrCl > 30 mL/min) AND/OR *Sequential Compression Device (SCD) 5 or more Highest Order ONE of the following medications: *Heparin 5000 units SQ TID (Preferred with Epidurals) *Enoxaparin/Lovenox 40 mg SQ daily (WT < 150 kg, CrCl > 30 mL/min) *Enoxaparin/Lovenox 30 mg SQ daily (WT < 150 kg, CrCl > 10-29 mL/min) *Enoxaparin/Lovenox 30 mg SQ BID (WT < 150 kg, CrCl > 30 mL/min) AND *Sequential Compression Device (SCD) Assessment and Plan Assessment and Plan This is a 77-year-old female, with severe sepsis, dehydration with concerns for cardiopulmonary component secondary to a history of irregular heart beat, COPD and significant respiratory compromise. Concern neurological component secondary to lethargy and recent fall, with imaging studies still pending. Admit to ICU. Plan by systems: Neurologic: Lethargy Metabolic encephalopathy Neurochecks per ICU protocol Avoid sedative type medications at this time Obtain CT brain Obtain Ammonia level Tylenol for fever and/or pain Respiratory: Metabolic acidosis Acute hypoxemic respiratory failure COPD Maintain O2 sat greater than 92% Insert arterial line Initial ABG-7.26//275/11/-14.6 Initiate sodium bicarbonate infusion Na HCO3 2 amps IVP Cardiovascular: Cardiomegaly History of arrhythmia Cardiac Tamponade Pericardial effusion Maintain MAP greater than 65 Currently on norepinephrine at 2 mcgs/min continue to wean Monitor arterial pressure 07/16 EKG-sinus rhythm Obtain stat [id number] results-evaluate function and concern for right ventricular function- Noted Pericardial Effusion Stat consult -CTS Dr. Canales- To OR for emergent Pericardial Window Renal: Acute kidney injury Dehydration Insert Simpson -- Strict I/Os FEN/GI: Electrolyte derangement Metabolic acidosis 2/2 lactic acidemia Shock liver Replete electrolytes per ICU protocol Monitor BMP-creatinine 1.6, patient received 2 L normal saline IV in ED 2 amps NaHCO3 IVP Begin sodium bicarbonate infusion at 75 cc/an hour Heme/ID: Lactic acidemia Leukocytosis Coagulopathy Continue to trend lactate levels every 6 hours -Lactate 7.3->6.6 Monitor CBC Vit K 10 mg IV now- to OR type and screen- 4 FFP, 2 PRBC's quality control engineer Endocrine: Hyperglycemia of critical illness Glucose monitoring per ICU protocol -- SSI Prophylaxis: GI Prophylaxis Famotidine BID DVT Prophylaxis -- SCDs Heparin on hold, F/U CT brain and coag studies Lines: Peripheral IVs 2. Right IJ central line per ED 07/15 Dispo: my billing statement This patient remains critically ill with one or more organ systems which are or may become a threat to life. I have spent in excess of 67 minutes discontinuously in the care and management of this patient. This time is exclusive of procedures, and includes, but is not limited to, evaluation of the patient, review of the medical record, discussions with family, consultants, nursing staff, or respiratory therapy, and documentation in the medical record. Code Status Full Discussed Condition With , Dr. Gan and ED RN at bedside- Subsequently Dr. Canales , and Caridad Cornejo MD Jul 16, 2017 13:40
[2017-07-16] MEDS: RESP: ALBUTEROL 2.5 MG/IPRATROPIUM 0.5 MG NEB (SCH) NEB ×3 (13:56→20:46)
--- NOTE | 2017-07-16 14:30 | PD.CONS ---
History of Present Illness Service CT Surgery Consult Requested By Dr. Ken Reason for Consult Pericardial tamponade Primary Care Physician Hima Marion DO Diagnoses: (1) Pericardial effusion with cardiac tamponade History of Present Illness 77y/o female with flu-like symptoms x 2-3 days presents with dyspnea and hypotension. She was found to have a high INR and a large pericardial effusion on ECHO with tamponade physiology. She does not have any other pertinent PMH except irregular heartbeat, COPD, and tobacco abuse. Review of Systems ROS Limitations: Clinical Condition, Altered Mental Status Past Family Social History Allergies: Coded Allergies: No Known Allergies (Verified Adverse Reaction, Unknown, 07/16/17) Past Medical History as above Past Surgical History unknown Active Ordered Medications Current Medications Medications (Trade) Dose Ordered Sig/Marcela Route Start Time Stop Time Status Last Admin Norepinephrine Bitartrate 250 ml @ 7.5 mls/hr TITRATE PRN IV 07/16/17 11:30 07/16/17 12:15 (Brethine Inj) 1 mg UNSCH PRN SQ 07/16/17 11:30 Sodium Bicarbonate 150 meq/Dextrose 1,000 ml @ 75 mls/hr [id number] IV 07/16/17 14:00 (Duoneb Neb) 1 ampule Q6HR NEB NEB 07/16/17 13:15 07/16/17 13:56 (Duoneb Neb) 1 ampule Q2HR NEB PRN NEB 07/16/17 13:15 Cefepime HCl 2000 mg/Sodium Chloride 100 ml @ 200 mls/hr Q8H IV 07/16/17 18:00 Azithromycin 500 mg/Sodium Chloride 250 ml @ 250 mls/hr Q24H IV 07/17/17 10:00 Pharmacy Profile Note 0 ml @ 0 mls/hr UNSCH OTHER 07/16/17 13:15 (NS Flush) 2 ml UNSCH PRN IV FLUSH 07/16/17 13:15 (NS Flush) 2 ml BID IV FLUSH 07/16/17 21:00 (Tylenol) 650 mg Q6H PRN PO 07/16/17 13:15 (Pepcid Inj) 10 mg Q12HR IV PUSH 07/16/17 21:00 (Zofran Inj) 4 mg Q6H PRN IV PUSH 07/16/17 13:15 Miscellaneous Information 1 [id number] XX 07/16/17 13:15 (Chlorhexidine 2% Cloth) 3 pack Taper DAILY@04 TOP 07/17/17 04:00 07/13/18 03:59 (Chlorhexidine 2% Cloth) 3 pack UNSCH PRN TOP 07/16/17 13:15 (Lorin-Colace) 1 tab BID PO 07/16/17 21:00 (Milk Of Magnesia Liq) 30 ml Q12H PRN PO 07/16/17 13:15 (Senokot) 17.2 mg Q12H PRN PO 07/16/17 13:15 (Dulcolax Supp) 10 mg DAILY PRN RECTAL 07/16/17 13:15 (Lactulose Liq) 30 ml DAILY PRN PO 07/16/17 13:15 (D50w (Vial) Inj) 50 ml UNSCH PRN IV PUSH 07/16/17 13:15 (Glucagon Inj) 1 mg UNSCH PRN OTHER 07/16/17 13:15 (NovoLOG SUPPLEMENTAL SCALE) 1 ACHS SLIDING SCALE SQ 07/16/17 17:00 (SoluMEDROL INJ) 60 mg Q12HR IV PUSH 07/16/17 14:00 Phytonadione 10 mg/Sodium Chloride 51 ml @ 102 mls/hr ONCE ONCE IV 07/16/17 15:00 07/16/17 15:29 Family History unknown Social History Tobacco abuse Physical Exam Vital Signs Vital Signs Date Time Temp Pulse Resp B/P (MAP) Pulse Ox O2 Delivery O2 Flow Rate FiO2 07/16/17 12:15 159/79 (105) 07/16/17 12:15 88 159/79 07/16/17 11:00 79/48 (58) 07/16/17 10:30 88 175/110 (131) 07/16/17 09:33 98.4 97 24 171/117 (135) 100 BiPAP 07/16/17 09:04 100 80 07/16/17 08:53 108 28 72/36 (48) 72 Physical Exam GENERAL: This is an ill-appearing female in distress. SKIN: No rashes, ecchymoses or lesions. Cool and dry. HEAD: Atraumatic. Normocephalic. No temporal or scalp tenderness. EYES: Pupils equal round and reactive. Extraocular motions intact. No scleral icterus. No injection or drainage. ENT: Nose without bleeding, purulent drainage or septal hematoma. Throat without erythema, tonsillar hypertrophy or exudate. Uvula midline. Airway patent. NECK: Trachea midline. No JVD or lymphadenopathy. Supple, nontender, no meningeal signs. CARDIOVASCULAR: Regular rate and rhythm without murmurs, gallops, or rubs. RESPIRATORY: Clear to auscultation. Breath sounds equal bilaterally. No wheezes , rales, or rhonchi. GASTROINTESTINAL: Abdomen soft, non-tender, nondistended. No hepato-splenomegaly , or palpable masses. No guarding. MUSCULOSKELETAL: Extremities without clubbing, cyanosis, or edema. No joint tenderness, effusion, or edema noted. No calf tenderness. Negative Homans sign bilaterally. NEUROLOGICAL: Awake and alert. Cranial nerves II through XII intact. Motor and sensory grossly within normal limits. Five out of 5 muscle strength in all muscle groups. Normal speech. Laboratory Laboratory Tests Test 07/16/17 09:12 07/16/17 10:06 07/16/17 11:15 07/16/17 11:29 White Blood Count 12.5 Red Blood Count 4.44 Hemoglobin 13.1 Hematocrit 40.3 Mean Corpuscular Volume 90.7 Mean Corpuscular Hemoglobin 29.5 Mean Corpuscular Hemoglobin Concent 32.5 Red Cell Distribution Width 15.7 Platelet Count 210 Mean Platelet Volume 10.2 Neutrophils (%) (Auto) 80.4 Lymphocytes (%) (Auto) 10.6 Monocytes (%) (Auto) 9.0 Eosinophils (%) (Auto) 0.0 Basophils (%) (Auto) 0.0 Neutrophils # (Auto) 10.0 Lymphocytes # (Auto) 1.3 Monocytes # (Auto) 1.1 Eosinophils # (Auto) 0.0 Basophils # (Auto) 0.0 CBC Comment DIFF FINAL Differential Comment Prothrombin Time 12.7 Prothromb Time International Ratio 1.3 Activated Partial Thromboplast Time 24.2 Blood Urea Nitrogen 30 Creatinine 1.68 Random Glucose 200 Total Protein 7.3 Albumin 3.7 Calcium Level 8.6 Alkaline Phosphatase 122 Aspartate Amino Transf (AST/SGOT) 34 Alanine Aminotransferase (ALT/SGPT) 60 Total Bilirubin 0.6 Sodium Level 138 Potassium Level 4.0 Chloride Level 103 Carbon Dioxide Level 18.6 Anion Gap 16 Estimat Glomerular Filtration Rate 29 Lactic Acid Level 7.3 6.6 Total Creatine Kinase 161 Creatine Kinase MB 1.7 Troponin I LESS THAN 0.02 Lipase 117 Blood Gas Puncture Site INTRA-VENOUS RT FEMORAL Blood Gas Patient Temperature 98.6 98.6 Venous Blood pH 7.19 Venous Blood Partial Pressure CO2 41 Venous Blood Partial Pressure O2 44 Venous Blood HCO3 15 Venous Blood Oxygen Saturation 58 Venous Blood Oxygen Content 9.1 Venous Blood Base Excess -11.5 Oxygen Delivery Device BIPAP Non-Rebreathing Mask Blood Gas Ventilator Setting IPAP15/EPAP5 Blood Gas Inspired Oxygen 70 100 Blood Gas HCO3 11 Blood Gas Base Excess -14.6 Blood Gas Oxygen Saturation 99 Arterial Blood pH 7.26 Arterial Blood Partial Pressure CO2 26 Arterial Blood Partial Pressure O2 275 Arterial Blood Oxygen Content 16.5 Arterial Blood Carboxyhemoglobin 0.2 Arterial Blood Methemoglobin 0.3 Blood Gas Hemoglobin 11.4 Blood Gas Liter Flow 15 Test 07/16/17 11:45 07/16/17 14:00 Urine Color YELLOW Urine Turbidity CLEAR Urine pH 6.0 Urine Specific [place] 1.031 Urine Protein 100 Urine Glucose (UA) TRACE Urine Ketones 10 Urine Occult Blood MOD Urine Nitrite NEG Urine Bilirubin NEG Urine Urobilinogen 4.0 Urine Leukocyte Esterase NEG Urine RBC 113 Urine WBC 1 Urine Hyaline Casts 3 Urine Mucus FEW Microscopic Urinalysis Comment CATH-CULT NOT IND Blood Gas Puncture Site LT RADIAL Blood Gas Patient Temperature 98.6 Blood Gas HCO3 9 Blood Gas Base Excess -18.6 Blood Gas Oxygen Saturation 98 Arterial Blood pH 7.13 Arterial Blood Partial Pressure CO2 28 Arterial Blood Partial Pressure O2 227 Arterial Blood Oxygen Content 16.7 Arterial Blood Carboxyhemoglobin 0.0 Arterial Blood Methemoglobin 1.0 Blood Gas Hemoglobin 11.9 Oxygen Delivery Device NONREBREATHER Blood Gas Liter Flow 15 Date/Time Source Procedure Growth Status 07/16/17 09:22 Blood Peripheral Aerobic Blood Culture Pending Received 07/16/17 09:22 Blood Peripheral Anaerobic Blood Culture Pending Received Result Diagram: 07/16/1712 07/16/17911 Imaging Last Impressions Chest X-Ray 07/16/1708 Signed Impressions: Service Date/Time: Sunday, July 16, 2017 09:52 - CONCLUSION: 1. Cardiomegaly with stable mild positive fluid balance. 2. No significant interval change. Jack Barrientos MD Course Patient will be taken to the OR emergently Assessment and Plan Problem List: (1) Pericardial effusion with cardiac tamponade ICD Codes: I31.3 - Pericardial effusion (noninflammatory); I31.4 - Cardiac tamponade Status: Acute Assessment and Plan Emergency drainage of pericardial effusion Vitamin K FFP and blood ordered Discussed with [place] Canales MD Jul 16, 2017 14:30
[2017-07-16] MEDS ORDERED: ETOMIDATE 20 MG/10 ML VIAL ONE (14:31)
--- NOTE | 2017-07-16 14:48 | ECHRPT ---
Indication: shortness of breath CONCLUSIONS The left ventricular systolic function is normal with an estimated ejection fraction in the range of 60-65%. Normal left ventricular size. Wall thickness is normal. No regional wall motion abnormalities are present. Aortic valve sclerosis is present. There is trace tricuspid valve regurgitation. The estimated pulmonary arterial pressure is 24 mmHg. There is large pericardial effusion present. Echocardiographic features were consistent with hemodynamically significant pericardial effusion and tamponade physiology. BP: 159 / 79 HR: 88 Rhythm: Technical Quality: FINDINGS LEFT VENTRICLE The left ventricular systolic function is normal with an estimated ejection fraction in the range of 60-65%. Normal left ventricular size. Wall thickness is normal. No regional wall motion abnormalities are present. RIGHT VENTRICLE Normal right ventricular size and systolic function. LEFT ATRIUM The left atrial size is normal. RIGHT ATRIUM The right atrial size is normal. ATRIAL SEPTUM Normal atrial septal thickness without atrial level shunting by limited color doppler interrogation. AORTA The aortic root and proximal ascending aorta are normal in size on limited imaging. MITRAL VALVE Structurally normal mitral valve. No mitral valve stenosis or regurgitation. AORTIC VALVE Trileaflet aortic valve. Aortic valve sclerosis is present. TRICUSPID VALVE Structurally normal tricuspid valve. There is trace tricuspid valve regurgitation. The estimated pulmonary arterial pressure is 24 mmHg. PULMONARY VALVE The pulmonary valve is not well visualized. VESSELS The inferior vena cava is normal in size. PERICARDIUM There is large pericardial effusion present. Echocardiographic features were consistent with hemodynamically significant pericardial effusion and tamponade physiology. Tomi Sweeney MD, FACC (Electronically Signed) Final Date:16 July 2017 14:47
[2017-07-16] MEDS ORDERED: PHYTONADIONE INJ 10 MG in SODIUM CHLORIDE 0.9% INJ 50 ML IV ONE (15:00)
[2017-07-16] MEDS ORDERED: BUPIVACAINE HCL PF 0.5% 30 ML VIAL ONE (15:08)
[2017-07-16] MEDS ORDERED: ceFAZolin 2 GM PREMIX 50 ML IV ONE (15:14)
[2017-07-16] MEDS ORDERED: CALCIUM CHLORIDE INJ 1 GM in SODIUM CHLORIDE 0.9% INJ 100 ML IV PRN (15:30)
--- NOTE | 2017-07-16 15:41 | PD.OP ---
cc: Eliot Marion D.O.; [place]ia Canales MD Operative Report Date of Surgery: Jul 16, 2017 Preoperative Diagnosis: (1) Pericardial effusion with cardiac tamponade Postoperative Diagnosis: same Procedure: Emergency pericardial window Anesthesia: Dr. Piper Surgeon: Albania Canales Glove Examiner(s): Clare Pacheco, DAVIS Operation and Findings: The patient was taken to the OR emergently in hemodynamically unstable condition. After a time out, the patient was prepped and draped in the usual manner. A midline incision was made over the xyphoid and electrocautery was used to carry the dissection down to the xyphoid. The xyphoid was isolated and removed sharply. A plane was developed behind the sternum and it was retracted anteriorly. The pericardium was identified and entered sharply. Fluid was collected in sputum traps and submitted for cytology and cultures. Approximately 900 ml of bloody fluid was suctioned. The patient was hemodynamically stable once this fluid was drained. A 32F right angle chest tube was placed posteriorly in the pericardial space through a separate skin incision. This was secured with a 0-silk sutrure. The wound was irrigated an closed in 3 layers. All sponge and instrument counts were correct and the patient was transferred to the CVICU in stable condition. Albania Canales MD Jul 16, 2017 15:41
[2017-07-16] MEDS ORDERED: fentaNYL DRIP 250 ML IV PRN (15:45)
[2017-07-16] MEDS ORDERED: RESP: ALBUTEROL 2.5 MG/IPRATROPIUM 0.5 MG NEB (SCH) NEB (16:00)
[2017-07-16] MEDS: SODIUM BICARBONATE 8.4% INJ 150 MEQ in DEXTROSE 5% IN WATE 1000ML INJ 850 ML IV SCH ×2 (16:21)
[2017-07-16] MEDS ORDERED: LACTATED RINGER'S 1000 ML INJ 500 ML IV PRN (16:30)
[2017-07-16] MEDS ORDERED: ALBUMIN 5% INJ 250 ML IV PRN (16:30)
[2017-07-16] MEDS ORDERED: hydrALAZINE HCL 20 MG/ML VIAL IV PUSH PRN (16:30)
[2017-07-16] MEDS ORDERED: METOPROLOL TARTRATE 5 MG/5 ML VIAL IV PUSH PRN (16:30)
[2017-07-16] MEDS ORDERED: SODIUM BICARBONATE 8.4% SOLN 50 MEQ/50 ML VIAL IV PUSH PRN ×2 (16:30)
[2017-07-16] MEDS ORDERED: RESP: RACEPINEPHRINE 2.25% 0.5 ML NEB NEB PRN (16:30)
[2017-07-16] MEDS: methylPREDNISolone SOD SUCC 125 MG/2 ML VIAL IV PUSH SCH ×2 (16:32→21:57)
[2017-07-16 16:54] LABS: HEMATOCRIT 32.5 % (35.0-46.0); HEMOGLOBIN 10.7 GM/DL (11.6-15.3); MEAN CELL VOLUME 91.1 FL (80.0-100.0); MEAN CORPUSCULAR HEMOGLOBIN 30.1 PG (27.0-34.0); MEAN PLATELET VOLUME 10.1 FL (7.0-11.0); PLATELET COUNT 129 TH/MM3 (150-450); RED BLOOD COUNT 3.57 MIL/MM3 (4.00-5.30); RED CELL DISTRIBUTION WIDTH 15.2 % (11.6-17.2); WHITE BLOOD COUNT 13.3 TH/MM3 (4.0-11.0)
[2017-07-16] MEDS ORDERED: INSULIN REGULAR (IV INFUSION) 100 UNITS in SODIUM CHLORIDE 0.9% INJ 99 ML IV PRN (17:00)
[2017-07-16] MEDS ORDERED: CLEVIDIPINE INJ 50 ML IV PRN (17:00)
[2017-07-16] MEDS ORDERED: POTASSIUM CHLOR 20 MEQ PREMIX 100 ML IV PRN ×2 (17:00)
[2017-07-16] MEDS ORDERED: ACETAMINOPHEN 650 MG SUPP RECTAL PRN (17:00)
[2017-07-16] MEDS ORDERED: CALCIUM CHLORIDE 10% 1 GRAM/10 ML VIAL IV PUSH PRN (17:00)
[2017-07-16] MEDS ORDERED: DEXMEDETOMIDINE INJ 200 MCG in SODIUM CHLORIDE 0.9% INJ 50 ML IV PRN (17:00)
[2017-07-16] MEDS ORDERED: INSULIN ASPART SUPPLEMENTAL SCALE SQ SCH (17:00)
[2017-07-16] MEDS ORDERED: POTASSIUM CHLORIDE 20 MEQ CONTROLLED RELEASE TAB PO PRN ×2 (17:00)
[2017-07-16] MEDS ORDERED: Post-op Orders (for Pharmacy) OTHER ONE (17:00)
[2017-07-16] MEDS ORDERED: DEXMEDETOMIDINE INJ 400 MCG in SODIUM CHLORIDE 0.9% INJ 96 ML IV PRN (17:00)
--- NOTE | 2017-07-16 17:02 | RADRPT ---
EXAM DATE/TIME: 07/16/2017 16:13 [facility] COMPARISON: CHEST SINGLE AP, July 16, 2017, 11:04. 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 MEDICAL HISTORY : Chronic obstructive pulmonary disease. SURGICAL HISTORY : CABG. Hysterectomy. ENCOUNTER: Subsequent ACUITY: 1 day PAIN SCORE: Non-responsive. LOCATION: Bilateral chest FINDINGS: ET tube, central venous catheter and mediastinal drain in good position. Mild compensated cardiomega ly negative for pneumothorax CONCLUSION: 1. Support apparatus in good position. 2. Negative for pneumothorax Mild complete cardiomegaly Rob Leon MD FACR on July 16, 2017 at 16:59 Board Certified Radiologist. This report was verified electronically.
[2017-07-16 17:03] LABS: INTERNATIONAL NORMALIZED RATIO 1.6 RATIO; PROTHROMBIN TIME - PATIENT 16.1 SEC (9.8-11.6)
[2017-07-16] MEDS ORDERED: MAGNESIUM SULFATE INJ 2 GM in SODIUM CHLORIDE 0.9% INJ 100 ML IV PRN ×4 (17:15)
--- NOTE | 2017-07-16 17:39 | EKG ---
Date Performed: 07/16/2017 Time Performed: 10:53:30 PTAGE: 77 years EKG: Sinus rhythm LOW QRS VOLTAGE ABNORMAL ECG Compared to the PREVIOUS TRACING from 07/15/17, rate has decreased and non-specific ST/T wave changes no longer noted DOCTOR: Omar Sow Interpretating Date/Time 07/16/2017 17:37:33
[2017-07-16] MEDS ORDERED: CEFEPIME INJ 2,000 MG in SODIUM CHLORIDE 0.9% INJ 100 ML IV SCH (18:00)
[2017-07-16] MEDS ORDERED: SODIUM CHLORID 0.9% 500 ML INJ 500 ML IV ONE ×3 (18:15→21:30)
[2017-07-16 18:54] LABS: ALBUMIN 2.4 GM/DL (3.4-5.0); ALKALINE PHOSPHATASE 105 U/L (45-117); ALT (GPT) 78 U/L (10-53); AST (GOT) 122 U/L (15-37); BICARBONATE 23.4 MEQ/L (21.0-32.0); BLOOD UREA NITROGEN 30 MG/DL (7-18); CALCIUM 8.6 MG/DL (8.5-10.1); CHLORIDE 113 MEQ/L (98-107); CREATININE 1.41 MG/DL (0.50-1.00); GLOMERULAR FILTRATION RATE 36 ML/MIN (>89); GLUCOSE,RANDOM 168 MG/DL (74-106); SODIUM (NA) 150 MEQ/L (136-145); TOTAL BILIRUBIN ADULT 0.8 MG/DL (0.2-1.0); TOTAL PROTEIN 4.9 GM/DL (6.4-8.2); TROPONIN I 0.25 NG/ML (0.02-0.05)
[2017-07-16] MEDS ORDERED: NOREPINEPHRINE 4 MG/D5W 250 ML IV PRN (19:30)
[2017-07-16] MEDS ORDERED: PHENYLEPHRINE 40 MG in D5W 500 ML IV PRN (19:45)
[2017-07-16] MEDS: SODIUM CHLOR 0.9% 1000 ML INJ 1,000 ML IV SCH (20:55)
[2017-07-16] MEDS: DOCUSATE SODIUM 50 MG/SENNA 8.6 MG TAB PO SCH (21:00)
[2017-07-16] MEDS: SODIUM CHLORIDE 0.9% FLUSH 10 ML FLUSH IV FLUSH SCH (21:00)
[2017-07-16] MEDS ORDERED: SODIUM CHLORIDE 0.9% FLUSH 10 ML FLUSH IV FLUSH SCH (21:00)
[2017-07-16] MEDS ORDERED: FAMOTIDINE 20 MG/2 ML VIAL IV PUSH SCH (21:00)
[2017-07-16 21:06] LABS: FREE T3 0.99 PG/ML (2.18-3.98); LDH SERUM 346 U/L (84-246)
[2017-07-16 21:58] LABS: CARCINOEMBRYONIC ANTIGEN 0.9 NG/ML (0.2-5.0)
[2017-07-16 22:35] LABS: CA 19-9 15.2 U/ML (0.0-35.0)
[2017-07-16 22:36] LABS: CA 125 42.8 U/ML (0.0-30.2)
[2017-07-16 22:46] LABS: CA 15-3 19.1 U/ML (0.0-32.4)
[2017-07-16] MEDS: CHLORHEXIDINE 0.12% (ORAL KIT) 15 ML CUP MT SCH (23:53)
[2017-07-17] VITALS (12 sets, daily range): BP systolic 94–135; BP diastolic 62–79; PULSE 96–108; RESP 14–21; TEMP 97.4–98.6; O2SAT 91–98
[2017-07-17 00:50] LABS: PERICARDIAL HISTIOCYTES 64 %; PERICARDIAL LYMPHS 6 %; PERICARDIAL MESOTHELIAL 8 %; PERICARDIAL MONOS 1 %; PERICARDIAL POLYS(SEGS) 21 %; PERICARDIAL RBC 1419736 /MM3 (0-0); PERICARDIAL WBC 11335 /MM3 (0-10)
[2017-07-17] MEDS: SODIUM BICARBONATE 8.4% INJ 150 MEQ in DEXTROSE 5% IN WATE 1000ML INJ 850 ML IV SCH ×2 (03:20)
[2017-07-17] MEDS: RESP: ALBUTEROL 2.5 MG/IPRATROPIUM 0.5 MG NEB (SCH) NEB ×4 (03:42→20:51)
[2017-07-17] MEDS: CHLORHEXIDINE GLUCONATE 2 % 1 PACK (2 CLOTHS) TOP SCH (04:00)
[2017-07-17 04:25] LABS: AUTOMATED NEUTROPHIL # 14.3 TH/MM3 (1.8-7.7); BASOPHIL # 0.1 TH/MM3 (0-0.2); BASOPHIL % 0.6 % (0.0-2.0); HEMATOCRIT 33.1 % (35.0-46.0); HEMOGLOBIN 11.2 GM/DL (11.6-15.3); LYMPH % 4.4 % (9.0-44.0); LYMPHOCYTE # 0.7 TH/MM3 (1.0-4.8); MEAN CELL VOLUME 89.9 FL (80.0-100.0); MEAN CORPUSCULAR HEMOGLOBIN 30.5 PG (27.0-34.0); MEAN CORPUSCULAR HGB CONC 33.9 % (32.0-36.0); MEAN PLATELET VOLUME 10.1 FL (7.0-11.0); MONO % 7.3 % (0.0-8.0); MONOCYTE # 1.2 TH/MM3 (0-0.9); NEUT % 87.7 % (16.0-70.0); PLATELET COUNT 122 TH/MM3 (150-450); RED BLOOD COUNT 3.68 MIL/MM3 (4.00-5.30); RED CELL DISTRIBUTION WIDTH 14.9 % (11.6-17.2); WHITE BLOOD COUNT 16.3 TH/MM3 (4.0-11.0)
[2017-07-17 04:33] LABS: INTERNATIONAL NORMALIZED RATIO 1.6 RATIO; PROTHROMBIN TIME - PATIENT 16.1 SEC (9.8-11.6)
[2017-07-17] MEDS: SODIUM CHLOR 0.9% 1000 ML INJ 1,000 ML IV SCH (04:37)
[2017-07-17 04:50] LABS: LACTIC ACID SEPSIS PROTOCOL 3.8 mmol/L (0.4-2.0)
[2017-07-17 05:01] LABS: ALBUMIN 2.4 GM/DL (3.4-5.0); BICARBONATE 23.9 MEQ/L (21.0-32.0); CALCIUM 7.5 MG/DL (8.5-10.1); CREATININE 1.16 MG/DL (0.50-1.00); DIRECT BILIRUBIN ADULT 0.4 MG/DL (0.0-0.2); MAGNESIUM 1.9 MG/DL (1.5-2.5)
[2017-07-17 05:04] LABS: INDIRECT BILIRUBIN 0.2 MG/DL (0.0-0.8); RANDOM VANCOMYCIN 15.7 COMMENT; TOTAL BILIRUBIN ADULT 0.6 MG/DL (0.2-1.0); TOTAL PROTEIN 4.8 GM/DL (6.4-8.2); TROPONIN I 0.58 NG/ML (0.02-0.05)
[2017-07-17] MEDS: PANTOPRAZOLE SOD 40 MG DELAYED RELEASE TAB PO SCH (06:00)
[2017-07-17] MEDS: PANTOPRAZOLE SODIUM 40 MG VIAL IV PUSH SCH (06:13)
--- NOTE | 2017-07-17 06:47 | RADRPT ---
EXAM DATE/TIME: 07/17/2017 03:59 [facility] COMPARISON: CHEST SINGLE AP, July 16, 2017, 16:13. INDICATIONS : Shortness of breath, possible pneumothorax. MEDICAL HISTORY : Chronic obstructive pulmonary disease. SURGICAL HISTORY : Hysterectomy. ENCOUNTER: Subsequent ACUITY: 2 days PAIN SCORE: 0/10 LOCATION: Bilateral chest FINDINGS: Endotracheal tube gone nasogastric tube remain in stable position. There has been interval exchange o r retraction of right neck central line with tip now overlying the SVC at the level of the azygos vei n. There is persistent hazy bibasilar parenchymal opacity. Accounting for rotation, cardiac contours are unchanged.. CONCLUSION: No significant interval change in aeration. Arun Tanner MD on July 17, 2017 at 6:44 Board Certified Radiologist. This report was verified electronically.
[2017-07-17] MEDS ORDERED: GLUCAGON 1 MG/ML VIAL OTHER PRN ×2 (07:30→09:45)
[2017-07-17] MEDS ORDERED: DEXTROSE 50% IN WATER 50 ML VIAL(D50) IV PUSH PRN ×2 (07:30→09:45)
--- NOTE | 2017-07-17 07:32 | PD.PROCEDR ---
Procedure Note Procedure This procedure was performed 07/16/2017-late entry note Procedure: Arterial Line Placement Right radial-emergent Diagnosis: Hemodynamic instability Indications: Hemodynamic instability Consent: Emergent Description of the Procedure: The right wrist was prepped and draped sterilely. 1% lidocaine was used for local anesthesia. The pulse was located and a needle was advanced into the artery. A 20 gauge, 1.34 cm catheter was advanced into the artery using a modified Seldinger technique. The catheter was sutured to the skin and a sterile dressing was applied. The catheter was connected to a pressure transducer and an arterial waveform was noted. There were no immediate complications noted. There was minimal EBL. I personally performed the procedure. Caridad Ken MD Jul 17, 2017 07:32
[2017-07-17] MEDS: INSULIN ASPART SUPPLEMENTAL SCALE SQ SCH ×8 (08:00→22:00)
[2017-07-17 08:20] LABS: HEMOGLOBIN A1C 5.4 % (4.3-6.0)
--- NOTE | 2017-07-17 08:22 | HHI.CCPN ---
Subjective Remarks/Hospital Course This is a 77-year-old female that presented from PCP office via ambulance due to hypoxia and shortness of breath. She was seen at [facility] diagnosed with pneumonia and discharged with a prescription for azithromycin, at that time her BP in P was within normal limits, and troponin was notably less than 0.02, and influenza antigen negative. Last evening it was reported by her in the middle of the night the patient went to the bathroom and fell question unknown if there was any LOC, her daughter picked her up and put her back to bed . This a.m., she was transported by family for follow-up with her PCP today as directed, but while in the office, she passed out. Per EMS, she was cyanotic in the doctor's office. Her only complaint is of weakness and difficulty breathing. She denied any chest pain or abdominal pain. Upon admission to the ED today the patient was noted to have an elevated lactate level, mild leukocytosis with a metabolic acidosis. The patient was noted to be hypotensive systolic blood pressure in the 70s, venous ABG was drawn her SVO2 was notably 58. The patient was bolused with 2 L IV fluid, and received azithromycin 500 mg, vancomycin 1 g, and cefepime 2 g. a central line was placed and the patient was initiated on norepinephrine infusion .The patient is was notably audibly wheezing initially on nonrebreather received 2 DuoNeb treatments and subsequently had been weaned down to nasal cannula 3 L with O2 saturation greater than 92%. A D-dimer was ordered. The patient upon presentation to the ED to be lethargic, easily arousable and answering questions appropriately. Upon entering the ED, the patient was lethargic but arousable answering my questions, blood pressure was 159/over 70s on norepinephrine at 2 mcgs/minute. Imaging studies CT brain, and chest are still pending. Critical care medicine was consulted. Subjective: 07/17: Upon admission to CVICU on 07/16. The patient was noted to have increasing chest pain increasing difficulty breathing. Inability to obtain blood pressure by Dinamap , and 12-lead EKG had been obtained showing low voltage in all leads. An art line was placed, and a stat echo was performed showing a large pericardial effusion/cardiac tamponade. The patient was emergently transported to [facility], 900 cc fluid removed and mediastinal chest tube placed. No fluid labs sent for cytology, immunology, and ruling out an infectious process. WBC count of pleural fluid was noted to be significantly elevated. Pain patient continues on antibiotics, ID consulted appreciate recommendations. Throughout the night the patient maintained hemodynamic stability currently on phenylephrine 50 mcgs/minute. This a.m. the patient is alert and oriented, CPAP trials underway with anticipation for extubation. The patient continues to be coagulopathic, INR 1.6 this a.m. with no active signs of bleeding, and minimal chest tube output. FFP and cryoprecipitate ordered. Plan for CT of the abdomen and pelvis post extubation. Lactic acid noted to be downtrending. Objective Vital Signs Date Time Temp Pulse Resp B/P (MAP) Pulse Ox O2 Delivery O2 Flow Rate FiO2 07/17/17 07:10 40 07/17/17 07:08 95 07/17/17 05:50 99 104/72 07/17/17 03:00 Mechanical Ventilator 07/17/17 03:00 98.0 21 07/16/17 13:50 4.00 Intake and Output 07/17/17 07/17/17 07/18/17 08:00 16:00 00:00 Intake Total 1931 ml Output Total 355 ml Balance 1576 ml Result Diagram: 07/17/17 0410 07/17/17 0410 Other Results Microbiology Date/Time Source Procedure Growth Status 07/16/17 11:45 Urine Catheterized Urine Legionella Antigen - Final PRESUMPTIVE NEGATIVE FOR LEGIONELLA P... Complete 07/16/17 11:45 Urine Catheterized Urine Streptococcus pneumoniae Antigen (M - Final PRESUMPTIVE NEGATIVE FOR STREPTOCOCCU... Complete Laboratory Tests Test 07/16/17 10:06 07/16/17 11:29 07/16/17 14:00 07/16/17 17:02 Blood Gas Puncture Site INTRA-VENOUS RT FEMORAL LT RADIAL PK Blood Gas Patient Temperature 98.6 98.6 98.6 98.6 Venous Blood pH 7.19 (7.360-7.400) Venous Blood Partial Pressure CO2 41 mmHg (44-48) Venous Blood Partial Pressure O2 44 mmHg (35-40) Venous Blood HCO3 15 mmol/L (22-26) Venous Blood Oxygen Saturation 58 % (70-76) Venous Blood Oxygen Content 9.1 Vol % (9.0-17.0) Venous Blood Base Excess -11.5 mmol/L (-2-2) Oxygen Delivery Device BIPAP Non-Rebreathing Mask NONREBREATHER VENTILATOR Blood Gas Ventilator Setting IPAP15/EPAP5 A/C425/15/PEEP5 Blood Gas Inspired Oxygen 70 % 100 % 50 % Blood Gas HCO3 11 mmol/L (22-26) 9 mmol/L (22-26) 23 mmol/L (22-26) Blood Gas Base Excess -14.6 mmol/L (-2-2) -18.6 mmol/L (-2-2) -3.8 mmol/L (-2-2) Blood Gas Oxygen Saturation 99 % (90-100) 98 % (90-100) 92 % (90-100) Arterial Blood pH 7.26 (7.380-7.420) 7.13 (7.380-7.420) 7.22 (7.380-7.420) Arterial Blood Partial Pressure CO2 26 mmHg (38-42) 28 mmHg (38-42) 58 mmHg (38-42) Arterial Blood Partial Pressure O2 275 mmHG (61-120) 227 mmHg (61-120) 92 mmHg (61-120) Arterial Blood Oxygen Content 16.5 Vol % (12.0-20.0) 16.7 Vol % (12.0-20.0) 14.6 Vol % (12.0-20.0) Arterial Blood Carboxyhemoglobin 0.2 % (0-4) 0.0 % (0-4) 0.2 % (0-4) Arterial Blood Methemoglobin 0.3 % (0-2) 1.0 % (0-2) 1.2 % (0-2) Blood Gas Hemoglobin 11.4 G/DL (12.0-16.0) 11.9 G/DL (12.0-16.0) 11.2 G/DL (12.0-16.0) Blood Gas Liter Flow 15 L/M 15 L/M Test 07/16/17 17:50 07/16/17 20:13 07/17/17 04:20 Blood Gas Puncture Site PK ART LINE ART LINE Blood Gas Patient Temperature 98.6 98.6 98.6 Blood Gas HCO3 23 mmol/L (22-26) 22 mmol/L (22-26) 21 mmol/L (22-26) Blood Gas Base Excess -2.8 mmol/L (-2-2) -1.6 mmol/L (-2-2) -3.2 mmol/L (-2-2) Blood Gas Oxygen Saturation 92 % (90-100) 96 % (90-100) 96 % (90-100) Arterial Blood pH 7.29 (7.380-7.420) 7.40 (7.380-7.420) 7.41 (7.380-7.420) Arterial Blood Partial Pressure CO2 49 mmHg (38-42) 37 mmHg (38-42) 33 mmHg (38-42) Arterial Blood Partial Pressure O2 84 mmHg (61-120) 102 mmHg (61-120) 99 mmHg (61-120) Arterial Blood Oxygen Content 15.0 Vol % (12.0-20.0) 13.9 Vol % (12.0-20.0) 14.5 Vol % (12.0-20.0) Arterial Blood Carboxyhemoglobin 0.4 % (0-4) 0.5 % (0-4) 0.5 % (0-4) Arterial Blood Methemoglobin 1.2 % (0-2) 1.0 % (0-2) 1.1 % (0-2) Blood Gas Hemoglobin 11.5 G/DL (12.0-16.0) 10.2 G/DL (12.0-16.0) 10.7 G/DL (12.0-16.0) Oxygen Delivery Device VENTILATOR VENTILATOR VENTILATOR Blood Gas Ventilator Setting A/C18/500/PEEP5 COMMENT COMMENT Blood Gas Inspired Oxygen 50 % 60 % 50 % Imaging Last Impressions Chest X-Ray 07/17/17 0500 Signed Impressions: Service Date/Time: Monday, July 17, 2017 03:59 - CONCLUSION: No significant interval change in aeration. Arun Tanner MD Last Impressions Chest X-Ray 07/16/17 0908 Signed Impressions: Service Date/Time: Sunday, July 16, 2017 09:52 - CONCLUSION: 1. Cardiomegaly with stable mild positive fluid balance. 2. No significant interval change. Jack Barrientos MD Objective Remarks GENERAL: This is a petite elderly female, intubated and responsive on low-dose fentanyl SKIN: Warm and dry. HEAD: Atraumatic. Normocephalic. EYES: Pupils equal and round and 3 mm reactive. EOMI No scleral icterus. No injection or drainage. ENT: No nasal bleeding or discharge. Mucous membranes pink and moist. NECK: Trachea midline. No JVD. CARDIOVASCULAR: Normal rate, regular rhythm.S1, S2, mediastinal chest tube in place to-20 cm RESPIRATORY: Mechanical ventilation .No accessory muscle use. Clear to auscultation. Breath sounds equal bilaterally. GASTROINTESTINAL: Abdomen soft, non-tender, nondistended. No guarding. MUSCULOSKELETAL: Extremities without clubbing, cyanosis, or edema. No obvious deformities. NEUROLOGICAL: Awake and alert. RASS -1. No gross focal/sensory deficits. Cranial nerves II-XII grossly intact. Follows commands in all 4 extremities. Procedures 07/16-pericardial window Urinary Catheter: Yes Assessment to: Continue Simpson insert reason: Measure Accurate Output Date of Insertion: Jul 16, 2017 Vascular Central Line Catheter: Yes Assessment to: Continue Date of Insertion: Jul 16, 2017 Reason for Continuation Vasoactive medication administration A/P Assessment and Plan Plan by systems: Neurologic: Lethargy -resolved Metabolic encephalopathy Neurochecks per ICU protocol Patient currently on fentanyl infusion at 50 mics/hour for ventilator synchrony due to intubation Obtain Ammonia [id number] results Tylenol for fever and/or pain Respiratory: Metabolic acidosis Acute hypoxemic respiratory failure COPD Maintain O2 sat greater than 92% Mechanical [id number]/500/5/0.50 07/17 ABG 7.41/32/99/20/-3.2-sodium bicarbonate infusion discontinued 07/16@1900 Begin CPAP trials, with SBT parameters for planned extubation this a.m. SBT @ 0830-TV 500-700, NIF-41, FVC 1.29, RSBI-35 Incentive spirometry post extubation Consider scan CT chest post extubation Continue methylprednisolone 60 mg every 12 hours 07/17-chest x-ray hazy bibasilar opacity Cardiovascular: Cardiomegaly History of arrhythmia (irregular rhythm) Cardiac Tamponade Pericardial effusion S/P Pericardial window POD #1 Maintain MAP greater than 65 Currently on phenylephrine @ 50 mcgs/min continue to wean 07/16 EKG-sinus rhythm 07/16 stat echo performed- large pericardial effusion. Pericardial window (800- 900cc) CTS following- Dr. Canales Mediastinal chest tube output- 115, management per CT surgery Pleural fluid, cytology for pericardial fluid pending for determination of infectious, immunologic, or malignant process Renal: Acute kidney injury Dehydration-resolved Insert Simpson -- Strict I/Os FEN/GI: Electrolyte derangement Metabolic acidosis 2/2 lactic acidemia Shock liver Elevated LFTs Replete electrolytes per ICU protocol Maintain nothing by mouth status in anticipation of extubation Monitor BMP-downtrending creatinine 1.6->1.1 today IV fluid normal saline at 125/ hour-patient received 500 cc bolus 2 overnight AST 34->223, ALT 60->164 Elevated LDH 346, CRP 3.[address] abdomen and pelvis Heme/ID: Lactic acidemia Persistent Leukocytosis Coagulopathy Continue to trend lactate levels every 6 hours -Lactate 6.7->4.3->3.8 Monitor CBC 07/16 Received Vit K 10 mg IV 07/16 type and screen- 4 FFP, 2 PRBC's on hold 07/17- INR 1.6, [id number] Plan infusion 1 unit of cryoprecipitate and 1 unit of FFP Endocrine: Hyperglycemia of critical illness Glucose monitoring per ICU protocol Insulin drip discontinued 07/16 07/16Hemoglobin [id number] results -- SSI Prophylaxis: GI Prophylaxis Famotidine BID DVT Prophylaxis -- SCDs Heparin on hold, F/U CT brain and coag studies Lines: Peripheral IVs 2. Right IJ central line per ED 07/15 Dispo: my billing statement This patient remains critically ill with one or more organ systems which are or may become a threat to life. I have spent in excess of 49 minutes discontinuously in the care and management of this patient. This time is exclusive of procedures, and includes, but is not limited to, evaluation of the patient, review of the medical record, discussions with family, consultants, nursing staff, or respiratory therapy, and documentation in the medical record. D/W MENTAL MEASUREMENTS TEACHER at bedside Discussed with Dr. Canales and he would like to be the attending for this patient, the patient has been ordered transfer to CPCU. Critical Care Medicine will sign off. Physician Caridad Dan MD Jul 17, 2017 08:22
[2017-07-17] MEDS: methylPREDNISolone SOD SUCC 125 MG/2 ML VIAL IV PUSH SCH (09:00)
[2017-07-17] MEDS ORDERED: MULTIVITAMIN INJ 10 ML, THIAMINE INJ 500 MG, FOLIC ACID INJ 1 MG in SODIUM CHLORID 0.9%... IV SCH (09:00)
[2017-07-17] MEDS ORDERED: PROMETHAZINE/CODEINE 6.25 MG/10 MG/5 ML CUP PO PRN (09:45)
[2017-07-17] MEDS ORDERED: traMADol HCL 50 MG TAB PO PRN (09:45)
[2017-07-17] MEDS ORDERED: BISACODYL 10 MG SUPP RECTAL PRN (09:45)
--- NOTE | 2017-07-17 09:56 | PD.CAR.PN ---
CVT Progress Note CVT: POD #: 1 Subjective/Hospital Course: Hemodynamically stable without complaints. Doing very well s/p pericardial window Objective: Vital Signs Date Time Temp Pulse Resp B/P (MAP) Pulse Ox O2 Delivery O2 Flow Rate FiO2 07/17/17 08:47 91 Nasal Cannula 6 07/17/17 08:47 91 Nasal Cannula 6.00 07/17/17 07:10 Nasal Cannula 40 07/17/17 07:08 95 40 07/17/17 05:50 99 104/72 07/17/17 04:00 98 50 07/17/17 03:00 98 Mechanical Ventilator 50 07/17/17 03:00 50 07/17/17 03:00 100 07/17/17 03:00 98.0 100 21 94/75 (81) 98 100/72 (81) 07/16/17 23:44 97 50 07/16/17 23:00 98.3 107 19 105/75 (85) 97 106/82 (90) 07/16/17 23:00 98 Mechanical Ventilator 50 07/16/17 23:00 107 07/16/17 23:00 50 07/16/17 21:14 115 85/61 07/16/17 20:32 97 60 07/16/17 20:30 50 07/16/17 20:30 97 Mechanical Ventilator 50 07/16/17 20:00 110 111/67 07/16/17 19:50 113 110/67 07/16/17 19:40 116 77/53 07/16/17 19:00 115 07/16/17 19:00 60 07/16/17 19:00 97 Mechanical Ventilator 60 07/16/17 19:00 98.7 115 18 112/49 (70) 97 81/56 (64) 07/16/17 17:19 95 50 07/16/17 15:40 96 Mechanical Ventilator 50 07/16/17 15:40 114 07/16/17 15:40 50 07/16/17 15:40 95 50 07/16/17 15:40 97.4 103 17 129/76 (93) 96 153/85 (107) 07/16/17 13:55 102 17 71/56 (61) 71 70/52 (58) 07/16/17 13:55 71 Venturi Mask 100 07/16/17 13:50 88 18 99 Nasal Cannula 4.00 07/16/17 12:15 159/79 (105) 07/16/17 12:15 88 159/79 07/16/17 11:00 79/48 (58) 07/16/17 10:30 88 175/110 (131) Labs: Laboratory Tests Test 07/17/17 04:10 07/17/17 04:20 07/17/17 08:20 07/17/17 09:00 White Blood Count 16.3 TH/MM3 (4.0-11.0) Red Blood Count 3.68 MIL/MM3 (4.00-5.30) Hemoglobin 11.2 GM/DL (11.6-15.3) Hematocrit 33.1 % (35.0-46.0) Mean Corpuscular Volume 89.9 FL (80.0-100.0) Mean Corpuscular Hemoglobin 30.5 PG (27.0-34.0) Mean Corpuscular Hemoglobin Concent 33.9 % (32.0-36.0) Red Cell Distribution Width 14.9 % (11.6-17.2) Platelet Count 122 TH/MM3 (150-450) Mean Platelet Volume 10.1 FL (7.0-11.0) Neutrophils (%) (Auto) 87.7 % (16.0-70.0) Lymphocytes (%) (Auto) 4.4 % (9.0-44.0) Monocytes (%) (Auto) 7.3 % (0.0-8.0) Eosinophils (%) (Auto) 0.0 % (0.0-4.0) Basophils (%) (Auto) 0.6 % (0.0-2.0) Neutrophils # (Auto) 14.3 TH/MM3 (1.8-7.7) Lymphocytes # (Auto) 0.7 TH/MM3 (1.0-4.8) Monocytes # (Auto) 1.2 TH/MM3 (0-0.9) Eosinophils # (Auto) 0.0 TH/MM3 (0-0.4) Basophils # (Auto) 0.1 TH/MM3 (0-0.2) CBC Comment DIFF FINAL Differential Comment Prothrombin Time 16.1 SEC (9.8-11.6) Prothromb Time International Ratio 1.6 RATIO Blood Urea Nitrogen 33 MG/DL (7-18) Creatinine 1.16 MG/DL (0.50-1.00) Random Glucose 111 MG/DL (74-106) Total Protein 4.8 GM/DL (6.4-8.2) Albumin 2.4 GM/DL (3.4-5.0) Calcium Level 7.5 MG/DL (8.5-10.1) Magnesium Level 1.9 MG/DL (1.5-2.5) Alkaline Phosphatase 103 U/L (45-117) Aspartate Amino Transf (AST/SGOT) 223 U/L (15-37) Alanine Aminotransferase (ALT/SGPT) 164 U/L (10-53) Total Bilirubin 0.6 MG/DL (0.2-1.0) Direct Bilirubin 0.4 MG/DL (0.0-0.2) Sodium Level 143 MEQ/L (136-145) Potassium Level 3.6 MEQ/L (3.5-5.1) Chloride Level 112 MEQ/L (98-107) Carbon Dioxide Level 23.9 MEQ/L (21.0-32.0) Anion Gap 7 MEQ/L (5-15) Estimat Glomerular Filtration Rate 45 ML/MIN (>89) Lactic Acid Level 3.8 mmol/L (0.4-2.0) 2.6 mmol/L (0.4-2.0) Indirect Bilirubin 0.2 MG/DL (0.0-0.8) Troponin I 0.58 NG/ML (0.02-0.05) Random Vancomycin Level 15.7 COMMENT Blood Gas Puncture Site ART LINE Blood Gas Patient Temperature 98.6 Blood Gas HCO3 21 mmol/L (22-26) Blood Gas Base Excess -3.2 mmol/L (-2-2) Blood Gas Oxygen Saturation 96 % (90-100) Arterial Blood pH 7.41 (7.380-7.420) Arterial Blood Partial Pressure CO2 33 mmHg (38-42) Arterial Blood Partial Pressure O2 99 mmHg (61-120) Arterial Blood Oxygen Content 14.5 Vol % (12.0-20.0) Arterial Blood Carboxyhemoglobin 0.5 % (0-4) Arterial Blood Methemoglobin 1.1 % (0-2) Blood Gas Hemoglobin 10.7 G/DL (12.0-16.0) Oxygen Delivery Device VENTILATOR Blood Gas Ventilator Setting COMMENT Blood Gas Inspired Oxygen 50 % Ammonia 44 MCMOL/L (11-32) Result Diagram: 07/17/1740907/17/17409 Imaging: Last 24 hours Impressions Chest X-Ray 07/17/17499 Signed Impressions: Service Date/Time: Wednesday, July 17, 2017 03:59 - CONCLUSION: No significant interval change in aeration. Arun Tanner MD Cardiovascular: RRR Telemetry: NSR Pulmonary: Bilat crackles GI/: NABS, NT Incision: dry and intact CT: 110 ml recorded Plan: Transfer to stepdown Diurese Supp K, Mg Ambulate/up to chair Advance diet Continue pericardial tube Increased WBC secondary to IV steroids most likely, no signs of infection Increased LFTs secondary to tamponade - should resolve within 2-3 days. [place]ia Canales MD Jul 17, 2017 09:56
[2017-07-17] MEDS ORDERED: AZITHROMYCIN INJ 500 MG in SODIUM CHLOR 0.9% 250 ML INJ 250 ML IV SCH (10:00)
[2017-07-17] MEDS ORDERED: FUROSEMIDE 40 MG/4 ML VIAL IV PUSH ONE (10:00)
[2017-07-17] MEDS: MAGNESIUM SULFATE 1 GM PREMIX 100 ML IV SCH ×2 (10:35→11:42)
[2017-07-17] MEDS: SODIUM CHLORIDE 0.9% FLUSH 10 ML FLUSH IV FLUSH SCH ×2 (10:36→21:00)
[2017-07-17] MEDS: CHLORHEXIDINE 0.12% (ORAL KIT) 15 ML CUP MT SCH ×2 (10:36→20:00)
[2017-07-17] MEDS: POTASSIUM CHLORIDE 10 MEQ CONTROLLED RELEASE TAB PO SCH ×2 (11:43→21:00)
[2017-07-17] MEDS: RESP: ALBUTEROL 2.5 MG/IPRATROPIUM 0.5 MG NEB (PRN) NEB (11:49)
[2017-07-17] MEDS: POTASSIUM CHLOR 20 MEQ PREMIX 100 ML IV PRN (13:26)
[2017-07-17] MEDS: FUROSEMIDE IV SCH ×2 (13:27)
[2017-07-17] MEDS: NS IV SCH ×2 (13:27)
[2017-07-17 13:40] LABS: INTERNATIONAL NORMALIZED RATIO 1.6 RATIO; PROTHROMBIN TIME - PATIENT 15.7 SEC (9.8-11.6)
[2017-07-17] MEDS ORDERED: VANCOMYCIN INJ 750 MG in SODIUM CHLOR 0.9% 250 ML INJ 250 ML IV SCH (14:00)
[2017-07-17] MEDS: DOCUSATE SODIUM 50 MG/SENNA 8.6 MG TAB PO SCH ×2 (15:28→21:00)
[2017-07-17] MEDS: GABAPENTIN 400 MG CAP PO SCH ×3 (15:28→21:00)
[2017-07-17] MEDS: oxyCODONE/ACETAMINOPHEN 5 MG/325 MG TAB PO PRN (15:53)
[2017-07-17] MEDS: ASPIRIN 81 MG CHEW TAB PO SCH (15:53)
--- NOTE | 2017-07-17 18:41 | PD.ID.CON ---
History of Present Illness Service ID Consult Requested By Dr Ken Reason for Consult Lukocytosis, pericardial effusion with elevated WBC Primary Care Physician Hima Marion DO Diagnoses: History of Present Illness 77y/o female with flu-like symptoms x 2-3 days presents with dyspnea and hypotension. She was told by her PCP that she had pneumonia and was prescribed azithromycin however she developped syncope and was admitted to the hospital She was found to have a high INR and a large pericardial effusion on ECHO with tamponade physiology. She is sp periocardial window placement Fluid has elevated WBC, bloody in nature and no organisms on G stain Clx is NGTD @ 1 day Pt has negative blood clx as well pt was placed on vancomycin Review of Systems Except as stated in HPI: all other systems reviewed are Neg Past Family Social History Allergies: Coded Allergies: No Known Allergies (Verified Adverse Reaction, Unknown, 07/16/17) Past Medical History transverse myelitis arthritis COPD Past Surgical History sp appey Active Ordered Medications Medications where reviewed in EMR Antibiotics Include: vancomycin Family History reviewed non contributory Social History + Tobacco. 1 ppd No ETOH. No Illicit Drugs. Physical Exam Vital Signs Vital Signs Date Time Temp Pulse Resp B/P (MAP) Pulse Ox O2 Delivery O2 Flow Rate FiO2 07/17/17 12:20 91 High Flow Nasal Cannula 30.00 80 07/17/17 11:00 108 07/17/17 11:00 97.9 108 16 135/70 (91) 92 07/17/17 11:00 95 Nasal Cannula 40 07/17/17 09:30 96 Simple Mask 10.00 07/17/17 08:47 91 Nasal Cannula 6 07/17/17 08:47 91 Nasal Cannula 6.00 07/17/17 08:00 40 07/17/17 08:00 98.6 96 16 108/79 (89) 95 07/17/17 08:00 96 07/17/17 08:00 95 Mechanical Ventilator 40 07/17/17 07:10 Nasal Cannula 40 07/17/17 07:08 95 40 07/17/17 05:50 99 104/72 07/17/17 04:00 98 50 07/17/17 03:00 98 Mechanical Ventilator 50 07/17/17 03:00 50 07/17/17 03:00 100 07/17/17 03:00 98.0 100 21 94/75 (81) 98 100/72 (81) 12/22/17 23:44 97 50 07/16/17 23:00 98.3 107 19 105/75 (85) 97 106/82 (90) 07/16/17 23:00 98 Mechanical Ventilator 50 07/16/17 23:00 107 07/16/17 23:00 50 07/16/17 21:14 115 85/61 07/16/17 20:32 97 60 07/16/17 20:30 50 07/16/17 20:30 97 Mechanical Ventilator 50 07/16/17 20:00 110 111/67 07/16/17 19:50 113 110/67 07/16/17 19:40 116 77/53 07/16/17 19:00 115 07/16/17 19:00 60 07/16/17 19:00 97 Mechanical Ventilator 60 07/16/17 19:00 98.7 115 18 112/49 (70) 97 81/56 (64) Physical Exam CONSTITUTIONAL/GENERAL: This is a thin frail apperaring elderly patient, in no apparent distress. TUBES/LINES/DRAINS: SKIN: No jaundice, rashes, or lesions. Skin temperature appropriate. Not diaphoretic. HEAD: Atraumatic. Normocephalic. EYES: Pupils equal and round and reactive. Extraocular motions intact. No scleral icterus. No injection or drainage. Fundi not examined. ENT: Hearing grossly normal. Nose without bleeding or purulent drainage. Throat without visible erythema, exudates, masses, or lesions. NECK: Trachea midline. Supple, nontender. No palpable thyroid enlargement or nodularity. CARDIOVASCULAR: Regular rate and rhythm without murmurs, gallops, or rubs. No JVD. Peripheral pulses symmetric. CT in place with serosang dc RESPIRATORY/CHEST: Symmetric, unlabored respirations. Clear to auscultation. Breath sounds equal bilaterally. No wheezes, rales, or rhonchi. GASTROINTESTINAL: Abdomen soft, non-tender, nondistended. No hepato-splenomegaly , or palpable masses. No guarding. Bowel sounds present. GENITOURINARY: Without palpable bladder distension. . MUSCULOSKELETAL: Extremities without clubbing, cyanosis, or edema. No joint tenderness or effusion noted. No calf tenderness. No mottling or clubbing. LYMPHATICS: No palpable cervical or supraclavicular adenopathy. NEUROLOGICAL: Awake and alert. Motor and sensory grossly within normal limits. Follows commands. Cognitively sharp. Moves all extremities. PSYCHIATRIC: No obvious anxiety/depression. no apparent hallucinations or other psychotic thought process. Laboratory Laboratory Tests Test 07/16/17 20:13 07/16/17 21:27 07/17/17 04:10 07/17/17 04:20 Blood Gas Puncture Site ART LINE ART LINE Blood Gas Patient Temperature 98.6 98.6 Blood Gas HCO3 22 21 Blood Gas Base Excess -1.6 -3.2 Blood Gas Oxygen Saturation 96 96 Arterial Blood pH 7.40 7.41 Arterial Blood Partial Pressure CO2 37 33 Arterial Blood Partial Pressure O2 102 99 Arterial Blood Oxygen Content 13.9 14.5 Arterial Blood Carboxyhemoglobin 0.5 0.5 Arterial Blood Methemoglobin 1.0 1.1 Blood Gas Hemoglobin 10.2 10.7 Oxygen Delivery Device VENTILATOR VENTILATOR Blood Gas Ventilator Setting COMMENT COMMENT Blood Gas Inspired Oxygen 60 50 Lactic Acid Level 4.3 3.8 Tumor Marker Alpha Fetoprotein 6.6 Carcinoembryonic Antigen 0.9 CA 15-3 Antigen 19.1 CA 19-9 Antigen 15.2 CA 125 Antigen 42.8 White Blood Count 16.3 Red Blood Count 3.68 Hemoglobin 11.2 Hematocrit 33.1 Mean Corpuscular Volume 89.9 Mean Corpuscular Hemoglobin 30.5 Mean Corpuscular Hemoglobin Concent 33.9 Red Cell Distribution Width 14.9 Platelet Count 122 Mean Platelet Volume 10.1 Neutrophils (%) (Auto) 87.7 Lymphocytes (%) (Auto) 4.4 Monocytes (%) (Auto) 7.3 Eosinophils (%) (Auto) 0.0 Basophils (%) (Auto) 0.6 Neutrophils # (Auto) 14.3 Lymphocytes # (Auto) 0.7 Monocytes # (Auto) 1.2 Eosinophils # (Auto) 0.0 Basophils # (Auto) 0.1 CBC Comment DIFF FINAL Differential Comment Prothrombin Time 16.1 Prothromb Time International Ratio 1.6 Blood Urea Nitrogen 33 Creatinine 1.16 Random Glucose 111 Total Protein 4.8 Albumin 2.4 Calcium Level 7.5 Magnesium Level 1.9 Alkaline Phosphatase 103 Aspartate Amino Transf (AST/SGOT) 223 Alanine Aminotransferase (ALT/SGPT) 164 Total Bilirubin 0.6 Direct Bilirubin 0.4 Sodium Level 143 Potassium Level 3.6 Chloride Level 112 Carbon Dioxide Level 23.9 Anion Gap 7 Estimat Glomerular Filtration Rate 45 Indirect Bilirubin 0.2 Troponin I 0.58 Random Vancomycin Level 15.7 Test 07/17/17 08:20 07/17/17 09:00 07/17/17 13:05 07/17/17 13:15 Ammonia 44 Lactic Acid Level 2.6 2.1 Blood Gas Puncture Site LT RADIAL Blood Gas Patient Temperature 98.6 Blood Gas HCO3 24 Blood Gas Base Excess 0.8 Blood Gas Oxygen Saturation 90 Arterial Blood pH 7.48 Arterial Blood Partial Pressure CO2 32 Arterial Blood Partial Pressure O2 63 Arterial Blood Oxygen Content 15.6 Arterial Blood Carboxyhemoglobin 0.8 Arterial Blood Methemoglobin 1.2 Blood Gas Hemoglobin 12.4 Oxygen Delivery Device HIGH FLOW CANNULA Blood Gas Liter Flow 30 Blood Gas Inspired Oxygen 80 Prothrombin Time 15.7 Prothromb Time International Ratio 1.6 Date/Time Source Procedure Growth Status 07/16/17 09:22 Blood Peripheral Aerobic Blood Culture - Preliminary NO GROWTH IN 1 DAY Resulted 07/16/17 09:22 Blood Peripheral Anaerobic Blood Culture - Preliminary NO GROWTH IN 1 DAY Resulted 07/16/17 23:15 Fluid Pericardial Fluid Fungal Smear - Final NO FUNGAL ELEMENTS SEEN. Resulted 07/16/17 23:15 Fluid Pericardial Fluid Fungal Culture Pending Resulted 07/17/17 01:15 Sputum Expectorated Sputum Gram Stain - Final Resulted 07/17/17 01:15 Sputum Expectorated Sputum Sputum Culture Pending Resulted 07/16/17 11:45 Urine Catheterized Urine Legionella Antigen - Final PRESUMPTIVE NEGATIVE FOR LEGIONELLA P... Complete 07/16/17 11:45 Urine Catheterized Urine Streptococcus pneumoniae Antigen (M - Final PRESUMPTIVE NEGATIVE FOR STREPTOCOCCU... Complete Result Diagram: 07/17/17 0410 07/17/17 0410 Imaging Last Impressions Chest X-Ray 07/17/17 0500 Signed Impressions: Service Date/Time: Monday, July 17, 2017 03:59 - CONCLUSION: No significant interval change in aeration. Arun Tanner MD Assessment and Plan Assessment and Plan Pericardial effusion with cardiac tamponade sp emergent pericarial effusion drainage Leukocytossi ? reactive or 2/2 infx cont vancomycin fu clx fu WBC will dc abx if neg clx Merle Khan MD Jul 17, 2017 18:41
[2017-07-17] MEDS: ALPRAZolam 0.25 MG TAB PO PRN (21:00)
[2017-07-18] VITALS (11 sets, daily range): BP systolic 93–106; BP diastolic 54–70; PULSE 95–105; RESP 14–22; TEMP 97.4–98; O2SAT 93–98
[2017-07-18] MEDS: NS IV SCH ×4 (00:53→10:34)
[2017-07-18] MEDS: FUROSEMIDE IV SCH ×4 (00:53→10:34)
[2017-07-18] MEDS: INSULIN ASPART SUPPLEMENTAL SCALE SQ SCH ×10 (02:00→22:00)
[2017-07-18] MEDS: RESP: ALBUTEROL 2.5 MG/IPRATROPIUM 0.5 MG NEB (SCH) NEB ×4 (03:44→20:45)
[2017-07-18] MEDS: CHLORHEXIDINE GLUCONATE 2 % 1 PACK (2 CLOTHS) TOP SCH (04:00)
[2017-07-18] MEDS: PANTOPRAZOLE SODIUM 40 MG VIAL IV PUSH SCH (06:00)
[2017-07-18] MEDS: PANTOPRAZOLE SOD 40 MG DELAYED RELEASE TAB PO SCH (06:12)
--- NOTE | 2017-07-18 06:34 | RADRPT ---
EXAM DATE/TIME: 07/18/2017 04:25 [facility] COMPARISON: CHEST SINGLE AP, July 17, 2017, 3:59. INDICATIONS : Shortness of breath, possible pulmonary disease. MEDICAL HISTORY : Chronic obstructive pulmonary disease. SURGICAL HISTORY : Hysterectomy. ENCOUNTER: Subsequent ACUITY: 3 days PAIN SCORE: 0/10 LOCATION: Bilateral chest FINDINGS: There has been interval extubation and removal of nasogastric tube. There has been slight interval in crease in hazy bilateral pleuroparenchymal opacity. Cardiac contours are grossly stable. CONCLUSION: Interval extubation with slight interval worsening in aeration. Arun Tanner MD on July 18, 2017 at 6:31 Board Certified Radiologist. This report was verified electronically.
[2017-07-18 07:11] LABS: AUTOMATED NEUTROPHIL # 15.4 TH/MM3 (1.8-7.7); BASOPHIL % 0.1 % (0.0-2.0); HEMATOCRIT 32.1 % (35.0-46.0); LYMPH % 5.5 % (9.0-44.0); MEAN CELL VOLUME 88.4 FL (80.0-100.0); MEAN CORPUSCULAR HEMOGLOBIN 30.2 PG (27.0-34.0); MEAN CORPUSCULAR HGB CONC 34.1 % (32.0-36.0); MEAN PLATELET VOLUME 10.5 FL (7.0-11.0); MONO % 5.7 % (0.0-8.0); NEUT % 88.7 % (16.0-70.0); PLATELET COUNT 85 TH/MM3 (150-450); RED BLOOD COUNT 3.63 MIL/MM3 (4.00-5.30); RED CELL DISTRIBUTION WIDTH 14.9 % (11.6-17.2); WHITE BLOOD COUNT 17.4 TH/MM3 (4.0-11.0)
[2017-07-18 07:27] LABS: ALBUMIN 2.7 GM/DL (3.4-5.0); ALKALINE PHOSPHATASE 106 U/L (45-117); ALT (GPT) 160 U/L (10-53); AST (GOT) 161 U/L (15-37); BICARBONATE 31.9 MEQ/L (21.0-32.0); BLOOD UREA NITROGEN 29 MG/DL (7-18); CALCIUM 7.9 MG/DL (8.5-10.1); CHLORIDE 104 MEQ/L (98-107); CREATININE 0.88 MG/DL (0.50-1.00); GLOMERULAR FILTRATION RATE 62 ML/MIN (>89); GLUCOSE,RANDOM 103 MG/DL (74-106); MAGNESIUM 2.2 MG/DL (1.5-2.5); PHOSPHORUS 1.8 MG/DL (2.5-4.9); RANDOM VANCOMYCIN 11.6 COMMENT; SODIUM (NA) 142 MEQ/L (136-145); TOTAL BILIRUBIN ADULT 0.7 MG/DL (0.2-1.0); TOTAL PROTEIN 5.5 GM/DL (6.4-8.2)
[2017-07-18] MEDS: POTASSIUM CHLOR 20 MEQ PREMIX 100 ML IV PRN (07:52)
[2017-07-18] MEDS: CHLORHEXIDINE 0.12% (ORAL KIT) 15 ML CUP MT SCH ×2 (08:00→20:00)
[2017-07-18 08:12] LABS: BANDS 1 % (0-6); LYMPHOCYTES 6 % (9-44); METAMYELOCYTES 1 % (0-1); MONOCYTES 5 % (0-8); NEUTROPHIL # MANUAL DIFF 15.5 TH/MM3 (1.8-7.7); POLYS (SEG NEUTROPHILS) 87 % (16-70)
[2017-07-18] MEDS: POLYETHYLENE GLYCOL 17 GM PKG PO SCH (08:32)
[2017-07-18] MEDS: MAGNESIUM HYDROXIDE SUSP 30 ML CUP PO SCH (08:32)
[2017-07-18] MEDS: POTASSIUM CHLORIDE 10 MEQ CONTROLLED RELEASE TAB PO SCH ×2 (08:33→21:09)
[2017-07-18] MEDS: predniSONE 10 MG TAB PO SCH (08:33)
[2017-07-18] MEDS: MULTIVITAMINS/MINERALS THERAPEUTIC TAB PO SCH (08:33)
[2017-07-18] MEDS: DOCUSATE SODIUM 50 MG/SENNA 8.6 MG TAB PO SCH ×2 (08:33→21:09)
[2017-07-18] MEDS: GABAPENTIN 400 MG CAP PO SCH ×4 (08:33→22:06)
[2017-07-18] MEDS: ASPIRIN 81 MG CHEW TAB PO SCH (08:34)
[2017-07-18] MEDS: SODIUM CHLORIDE 0.9% FLUSH 10 ML FLUSH IV FLUSH SCH ×2 (08:34→21:00)
--- NOTE | 2017-07-18 08:45 | PD.CAR.PN ---
CVT Progress Note CVT: POD #: 2 Subjective/Hospital Course: Hemodynamically stable without complaints. Doing very well s/p pericardial window 07/18/17 Stable, but hypoxic requiring high-flow O2. Diuresing well on a lasix drip. Objective: Vital Signs Date Time Temp Pulse Resp B/P (MAP) Pulse Ox O2 Delivery O2 Flow Rate FiO2 07/18/17 08:00 97.9 99 16 101/60 (74) 97 07/18/17 07:59 97 Mechanical Ventilator 70 07/18/17 07:00 96 07/18/17 03:44 97 High Flow Nasal Cannula 30.00 82 07/18/17 03:14 98 Nasal Cannula 30.00 80 07/18/17 03:05 96 07/18/17 03:05 97.4 95 14 94/59 (71) 98 07/17/17 23:00 97.6 96 14 94/62 (73) 97 07/17/17 23:00 96 07/17/17 23:00 97 Nasal Cannula 30.00 80 07/17/17 20:50 94 High Flow Nasal Cannula 30.00 90 07/17/17 19:00 100 07/17/17 19:00 92 Nasal Cannula 30.00 80 07/17/17 19:00 97.4 100 18 95/63 (74) 92 Arterial Line 07/17/17 17:00 24 07/17/17 16:00 94 Medical Technologist Generalist 80 07/17/17 16:00 101 07/17/17 16:00 98.3 101 16 105/78 (87) 92 07/17/17 12:20 91 High Flow Nasal Cannula 30.00 80 07/17/17 11:00 108 07/17/17 11:00 97.9 108 16 135/70 (91) 92 07/17/17 11:00 95 Nasal Cannula 40 07/17/17 09:30 96 Simple Mask 10.00 07/17/17 08:47 91 Nasal Cannula 6 07/17/17 08:47 91 Nasal Cannula 6.00 Labs: Laboratory Tests Test 07/18/17 06:47 White Blood Count 17.4 TH/MM3 (4.0-11.0) Red Blood Count 3.63 MIL/MM3 (4.00-5.30) Hemoglobin 11.0 GM/DL (11.6-15.3) Hematocrit 32.1 % (35.0-46.0) Mean Corpuscular Volume 88.4 FL (80.0-100.0) Mean Corpuscular Hemoglobin 30.2 PG (27.0-34.0) Mean Corpuscular Hemoglobin Concent 34.1 % (32.0-36.0) Red Cell Distribution Width 14.9 % (11.6-17.2) Platelet Count 85 TH/MM3 (150-450) Mean Platelet Volume 10.5 FL (7.0-11.0) Neutrophils (%) (Auto) 88.7 % (16.0-70.0) Lymphocytes (%) (Auto) 5.5 % (9.0-44.0) Monocytes (%) (Auto) 5.7 % (0.0-8.0) Eosinophils (%) (Auto) 0.0 % (0.0-4.0) Basophils (%) (Auto) 0.1 % (0.0-2.0) Neutrophils # (Auto) 15.4 TH/MM3 (1.8-7.7) Lymphocytes # (Auto) 1.0 TH/MM3 (1.0-4.8) Monocytes # (Auto) 1.0 TH/MM3 (0-0.9) Eosinophils # (Auto) 0.0 TH/MM3 (0-0.4) Basophils # (Auto) 0.0 TH/MM3 (0-0.2) CBC Comment AUTO DIFF Differential Total Cells Counted 100 Neutrophils % (Manual) 87 % (16-70) Band Neutrophils % 1 % (0-6) Lymphocytes % 6 % (9-44) Monocytes % 5 % (0-8) Neutrophils # (Manual) 15.5 TH/MM3 (1.8-7.7) Metamyelocytes 1 % (0-1) Differential Comment FINAL DIFF MANUAL Platelet Estimate LOW (NORMAL) Platelet Morphology Comment NORMAL (NORMAL) Red Cell Morphology Comment NORMAL (NORMAL) Blood Urea Nitrogen 29 MG/DL (7-18) Creatinine 0.88 MG/DL (0.50-1.00) Random Glucose 103 MG/DL (74-106) Total Protein 5.5 GM/DL (6.4-8.2) Albumin 2.7 GM/DL (3.4-5.0) Calcium Level 7.9 MG/DL (8.5-10.1) Phosphorus Level 1.8 MG/DL (2.5-4.9) Magnesium Level 2.2 MG/DL (1.5-2.5) Alkaline Phosphatase 106 U/L (45-117) Aspartate Amino Transf (AST/SGOT) 161 U/L (15-37) Alanine Aminotransferase (ALT/SGPT) 160 U/L (10-53) Total Bilirubin 0.7 MG/DL (0.2-1.0) Sodium Level 142 MEQ/L (136-145) Potassium Level 3.0 MEQ/L (3.5-5.1) Chloride Level 104 MEQ/L (98-107) Carbon Dioxide Level 31.9 MEQ/L (21.0-32.0) Anion Gap 6 MEQ/L (5-15) Estimat Glomerular Filtration Rate 62 ML/MIN (>89) Random Vancomycin Level 11.6 COMMENT Result Diagram: 07/18/1764607/18/17646 Imaging: Last 24 hours Impressions Chest X-Ray 07/18/17 06 Signed Impressions: Service Date/Time: Tuesday, July 18, 2017 04:25 - CONCLUSION: Interval extubation with slight interval worsening in aeration. Arun Tanner MD Cardiovascular: RRR Pulmonary: Bilat crackles GI/: NABS, NT Incision: dry and intact CT: 110ml/24 hrs Plan: Wean oxygen Supp Mg/K/phos Out of bed to chair Transfer if oxygen requirements decrease to NC. Continue lasix drip for now Incentive spirometry Advance diet [place] Canales MD Jul 18, 2017 08:45
[2017-07-18] MEDS: oxyCODONE/ACETAMINOPHEN 5 MG/325 MG TAB PO PRN (15:40)
[2017-07-19] VITALS (12 sets, daily range): BP systolic 87–106; BP diastolic 48–67; PULSE 94–110; RESP 18–20; TEMP 98–99.7; O2SAT 91–97
[2017-07-19] MEDS: INSULIN ASPART SUPPLEMENTAL SCALE SQ SCH ×5 (01:38→08:51)
[2017-07-19] MEDS: RESP: ALBUTEROL 2.5 MG/IPRATROPIUM 0.5 MG NEB (SCH) NEB ×4 (03:17→20:10)
[2017-07-19] MEDS: CHLORHEXIDINE GLUCONATE 2 % 1 PACK (2 CLOTHS) TOP SCH (04:00)
[2017-07-19] MEDS: PANTOPRAZOLE SOD 40 MG DELAYED RELEASE TAB PO SCH (06:00)
[2017-07-19] MEDS: CHLORHEXIDINE 0.12% (ORAL KIT) 15 ML CUP MT SCH ×2 (08:00→19:36)
[2017-07-19] MEDS: MAGNESIUM HYDROXIDE SUSP 30 ML CUP PO SCH (08:20)
[2017-07-19] MEDS: ASPIRIN 81 MG CHEW TAB PO SCH (08:21)
[2017-07-19] MEDS: DOCUSATE SODIUM 50 MG/SENNA 8.6 MG TAB PO SCH ×2 (08:21→19:36)
[2017-07-19] MEDS: SODIUM CHLORIDE 0.9% FLUSH 10 ML FLUSH IV FLUSH SCH ×2 (08:21→19:36)
[2017-07-19] MEDS: MULTIVITAMINS/MINERALS THERAPEUTIC TAB PO SCH (08:21)
[2017-07-19] MEDS: GABAPENTIN 400 MG CAP PO SCH ×4 (08:21→19:35)
[2017-07-19] MEDS: predniSONE 10 MG TAB PO SCH (08:23)
[2017-07-19] MEDS: POLYETHYLENE GLYCOL 17 GM PKG PO SCH (08:23)
[2017-07-19] MEDS: POTASSIUM CHLORIDE 10 MEQ CONTROLLED RELEASE TAB PO SCH ×2 (08:24→19:35)
--- NOTE | 2017-07-19 09:26 | EKG ---
Date Performed: 07/17/2017 Time Performed: 07:49:34 PTAGE: 77 years EKG: Sinus rhythm . Short DC interval rSr'(V1) - probable normal variant Possible anterior infarct - age undetermined I nferior/lateral ST-T changes may be due to myocardial ischemia Generalized low QRS voltages Abnormal ECG PREVIOUS TRACING : 07/16/2017 13.37 Compared to prior tracing no significant change DOCTOR: Tomi Sweeney Interpretating Date/Time 07/19/2017 09:25:02
--- NOTE | 2017-07-19 10:20 | EKG ---
Date Performed: 07/16/2017 Time Performed: 13:37:44 PTAGE: 77 years EKG: SINUS TACHYCARDIA LOW QRS VOLTAGE ABNORMAL ECG PREVIOUS TRACING : 07/16/2017 10.53 Compared to the previous tracing rate faster DOCTOR: Tomi Sweeney Interpretating Date/Time 07/19/2017 10:20:20
--- NOTE | 2017-07-19 10:25 | PD.CAR.PN ---
CVT Progress Note CVT: POD #: 3 Subjective/Hospital Course: Hemodynamically stable without complaints. Doing very well s/p pericardial window 07/18/17 Stable, but hypoxic requiring high-flow O2. Diuresing well on a lasix drip. 07/19/17 Improving, still on high flow O2 Objective: Vital Signs Date Time Temp Pulse Resp B/P (MAP) Pulse Ox O2 Delivery O2 Flow Rate FiO2 07/19/17 09:30 94 High Flow Nasal Cannula 25.00 60 07/19/17 07:17 94 Nasal Cannula 25.00 60 07/19/17 07:14 98.1 106 18 93/62 (72) 94 07/19/17 07:00 104 07/19/17 04:00 94 Nasal Cannula 25.00 60 07/19/17 04:00 94 07/19/17 04:00 98.0 94 18 95/57 (70) 94 07/19/17 03:24 96 Nasal Cannula 25.00 60 07/19/17 00:00 97 Nasal Cannula 30.00 75 07/19/17 00:00 110 20 87/48 (61) 97 07/19/17 00:00 110 07/18/17 20:26 94 High Flow Nasal Cannula 30.00 75 07/18/17 20:00 97.7 99 22 93/70 (78) 93 07/18/17 20:00 98 07/18/17 20:00 93 Nasal Cannula 30.00 75 07/18/17 16:40 18 07/18/17 15:18 94 Nasal Cannula 30.00 70 07/18/17 15:10 98.0 105 16 106/54 (71) 93 07/18/17 15:00 103 07/18/17 11:16 94 70 07/18/17 11:14 98.0 96 16 96/62 (73) 94 07/18/17 11:00 101 Result Diagram: 07/18/17 0647 07/18/17 1622 Cardiovascular: RRR Telemetry: NSR Pulmonary: CTA GI/: NABS, NT Incision: dry and intact CT: ~60ml/24hrs Plan: Wean oxygen Up to chair Encourage PO intake Stim BM Singulair started [place] Canales MD Jul 19, 2017 10:25
--- NOTE | 2017-07-19 12:30 | RADRPT ---
EXAM DATE/TIME: 07/19/2017 11:31 [facility] COMPARISON: CHEST SINGLE AP, July 18, 2017, 4:25. INDICATIONS : Congestion. MEDICAL HISTORY : Chronic obstructive pulmonary disease. SURGICAL HISTORY : Hysterectomy. ENCOUNTER: Subsequent ACUITY: 4 - 6 days PAIN SCORE: 0/10 LOCATION: Bilateral chest FINDINGS: The heart is enlarged. Scattered proximal changes are seen in both lungs progressing in the right ba se. There is no significant pleural effusion. There is no pneumothorax. CONCLUSION: Increasing parenchymal changes particularly right base. Rob Leon MD FACR on July 19, 2017 at 12:27 Board Certified Radiologist. This report was verified electronically.
[2017-07-19] MEDS: MONTELUKAST SODIUM 10 MG TAB PO SCH (19:35)
[2017-07-20] VITALS (11 sets, daily range): BP systolic 101–118; BP diastolic 50–75; PULSE 104–110; RESP 20–26; TEMP 97.8–99.1; O2SAT 84–99
[2017-07-20] MEDS: RESP: ALBUTEROL 2.5 MG/IPRATROPIUM 0.5 MG NEB (SCH) NEB ×4 (03:02→21:21)
[2017-07-20] MEDS: CHLORHEXIDINE GLUCONATE 2 % 1 PACK (2 CLOTHS) TOP SCH (04:00)
[2017-07-20 04:17] LABS: HEMATOCRIT 29.5 % (35.0-46.0); HEMOGLOBIN 9.7 GM/DL (11.6-15.3); MEAN CELL VOLUME 89.2 FL (80.0-100.0); MEAN CORPUSCULAR HEMOGLOBIN 29.4 PG (27.0-34.0); MEAN PLATELET VOLUME 10.1 FL (7.0-11.0); PLATELET COUNT 72 TH/MM3 (150-450); RED BLOOD COUNT 3.31 MIL/MM3 (4.00-5.30); WHITE BLOOD COUNT 15.9 TH/MM3 (4.0-11.0)
[2017-07-20 04:38] LABS: BICARBONATE 29.7 MEQ/L (21.0-32.0); CALCIUM 7.8 MG/DL (8.5-10.1); CREATININE 0.65 MG/DL (0.50-1.00)
[2017-07-20] MEDS: PANTOPRAZOLE SOD 40 MG DELAYED RELEASE TAB PO SCH (05:38)
[2017-07-20] MEDS: predniSONE 10 MG TAB PO SCH (07:50)
[2017-07-20] MEDS: POTASSIUM CHLORIDE 10 MEQ CONTROLLED RELEASE TAB PO SCH ×2 (07:50→21:29)
[2017-07-20] MEDS: GABAPENTIN 400 MG CAP PO SCH ×4 (07:51→21:29)
[2017-07-20] MEDS: DOCUSATE SODIUM 50 MG/SENNA 8.6 MG TAB PO SCH ×2 (07:51→21:00)
[2017-07-20] MEDS: MULTIVITAMINS/MINERALS THERAPEUTIC TAB PO SCH (07:52)
[2017-07-20] MEDS: CHLORHEXIDINE 0.12% (ORAL KIT) 15 ML CUP MT SCH ×2 (08:00→20:00)
[2017-07-20] MEDS: SODIUM CHLORIDE 0.9% FLUSH 10 ML FLUSH IV FLUSH SCH ×2 (08:05→21:30)
[2017-07-20] MEDS: MAGNESIUM HYDROXIDE SUSP 30 ML CUP PO SCH (08:06)
[2017-07-20] MEDS: ASPIRIN 81 MG CHEW TAB PO SCH (08:06)
[2017-07-20] MEDS: POLYETHYLENE GLYCOL 17 GM PKG PO SCH (08:07)
[2017-07-20] MEDS: FUROSEMIDE 40 MG/4 ML VIAL IV PUSH SCH ×2 (09:00→18:00)
[2017-07-20] MEDS ORDERED: FUROSEMIDE 40 MG/4 ML VIAL IV PUSH SCH (09:00)
--- NOTE | 2017-07-20 09:03 | PD.CAR.PN ---
CVT Progress Note CVT: POD #: 4 Subjective/Hospital Course: Hemodynamically stable without complaints. Doing very well s/p pericardial window 07/18/17 Stable, but hypoxic requiring high-flow O2. Diuresing well on a lasix drip. 07/19/17 Improving, still on high flow O2 07/20/17 c/o dyspnea, but on less O2. Continues to diurese Objective: Vital Signs Date Time Temp Pulse Resp B/P (MAP) Pulse Ox O2 Delivery O2 Flow Rate FiO2 07/20/17 07:05 96 Simple Mask 10.00 07/20/17 04:00 106 07/20/17 04:00 97.8 106 103/65 (78) 95 07/20/17 04:00 95 Simple Mask 10.00 07/20/17 00:00 98.5 105 102/64 (77) 84 07/20/17 00:00 84 Nasal Cannula 25.00 60 07/20/17 00:00 105 07/19/17 20:12 94 High Flow Nasal Cannula 25.00 60 07/19/17 20:00 105 07/19/17 20:00 91 Nasal Cannula 25.00 60 07/19/17 20:00 99.7 105 106/67 (80) 91 07/19/17 15:23 93 Nasal Cannula 25.00 60 07/19/17 15:20 98.7 104 18 96/58 (71) 94 07/19/17 15:00 104 07/19/17 11:25 93 Nasal Cannula 25.00 60 07/19/17 11:19 98.0 94 18 101/66 (78) 94 07/19/17 11:00 104 07/19/17 09:30 94 High Flow Nasal Cannula 25.00 60 Labs: Laboratory Tests Test 07/20/17 03:36 White Blood Count 15.9 TH/MM3 (4.0-11.0) Red Blood Count 3.31 MIL/MM3 (4.00-5.30) Hemoglobin 9.7 GM/DL (11.6-15.3) Hematocrit 29.5 % (35.0-46.0) Mean Corpuscular Volume 89.2 FL (80.0-100.0) Mean Corpuscular Hemoglobin 29.4 PG (27.0-34.0) Mean Corpuscular Hemoglobin Concent 33.0 % (32.0-36.0) Red Cell Distribution Width 15.0 % (11.6-17.2) Platelet Count 72 TH/MM3 (150-450) Mean Platelet Volume 10.1 FL (7.0-11.0) Blood Urea Nitrogen 17 MG/DL (7-18) Creatinine 0.65 MG/DL (0.50-1.00) Random Glucose 112 MG/DL (74-106) Calcium Level 7.8 MG/DL (8.5-10.1) Sodium Level 138 MEQ/L (136-145) Potassium Level 3.9 MEQ/L (3.5-5.1) Chloride Level 103 MEQ/L (98-107) Carbon Dioxide Level 29.7 MEQ/L (21.0-32.0) Anion Gap 5 MEQ/L (5-15) Estimat Glomerular Filtration Rate 88 ML/MIN (>89) Result Diagram: 07/20/17 03307/20/17335 Cardiovascular: RRR Telemetry: NSR Pulmonary: Few crackles bilat GI/: NABS, NT Incision: dry and intact Plan: Diurese Wean O2 Up to chair CXR in AM [place] Canales MD Jul 20, 2017 09:03
--- NOTE | 2017-07-20 16:08 | RADRPT ---
EXAM DATE/TIME: 07/20/2017 15:43 [facility] COMPARISON: CHEST SINGLE AP, July 19, 2017, 11:31. INDICATIONS : Shortness of breath. MEDICAL HISTORY : Chronic obstructive pulmonary disease. SURGICAL HISTORY : Hysterectomy. ENCOUNTER: Subsequent ACUITY: 4 - 6 days PAIN SCORE: 0/10 LOCATION: Bilateral chest FINDINGS: There continues to be bilateral pulmonary infiltrates without significant change compared to the prio r exam. The heart size is stable. The bony structures are stable. No significant pleural effusions. CONCLUSION: Stable bilateral pulmonary infiltrates, right greater than left. David Zelaya MD on July 20, 2017 at 16:06 Board Certified Radiologist. This report was verified electronically.
[2017-07-20] MEDS ORDERED: EPINEPHrine HCL (1:10,000) 1 MG/10 ML SYRINGE ONE (16:37)
[2017-07-20] MEDS ORDERED: ATROPINE SULFATE 1 MG/10 ML SYRINGE ONE (16:37)
--- NOTE | 2017-07-20 16:53 | MB ---
cc: Renny BEVERLY M.D. DATE OF CONSULTATION 07/20/17 REASON FOR CONSULTATION: Hypoxia and history of COPD. HISTORY OF PRESENT ILLNESS This is a 77-year-old white female with a past history of pneumonia, COPD and chronic bronchitis who was recently treated for pneumonia and discharged home. She was noted to be getting more short of breath and hypoxic and was brought back by her family to the emergency room since she had passed out at the family physician's office. The patient was noted to be cyanotic at the time. Upon admission to the emergency room, she was noted to have a lactic acid that was elevated and had leukocytosis. Her blood pressure was in the 70 systolic range, given IV fluids, IV antibiotics and subsequently was evaluated for coronary artery disease. The patient initially was on a non-rebreather mask, but then weaned down to a nasal cannula maintaining a sat over 92. Following admission, however, further evaluation revealed that she had a pericardial effusion and the patient had to be taken for pericardial window placement. She remained somewhat hypoxic and had to be placed on a simple mask initially, but today the patient was hypoxic with pO2 in the 40s and thus she was placed on a high-flow nasal cannula. The patient is presently somewhat short of breath, but her sats are around 90% on 70% FIO2 nasal cannula. She is coughing. She brings up very little mucus. Last chest x-ray was yesterday which showed increasing parenchymal changes in the right base. She also is coughing up bloody sputum. PAST HISTORY 1. History of COPD. 2. Arthritis 3. Hiatal hernia. 4. She has been treated for transverse myelopathy. 5. Neuropathy of the lower extremities. 6. 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 7. History of tubal ligation and hysterectomy 8. History of tonsillectomy remotely 9. Cataract surgery with implants 10. Recent thoracic surgery with pericardial window. HABITS The patient smoked one to two packs per day for most of her life over 50 years until this past week. Alcohol use occasional. ALLERGIES XANAX GABAPENTIN TRAMADOL PRO-AIR REVIEW OF SYSTEMS The patient has weakness, shortness of breath, dizziness, chest discomfort, leg swelling. No calf muscle pains. She has some joint pains of her extremities. She has hemoptysis and some low grade fevers. FAMILY HISTORY Noncontributory PHYSICAL EXAMINATION GENERAL: Thinly built elderly lady who is pale and mildly dyspneic at rest. VITAL SIGNS: Blood pressure 150/80, pulse 95, respirations 22, temperature 98.2. HEENT: Head normocephalic. Pupils reactive and equal. Tongue is dry. Throat is injected. Nasal mucosa is clear. NECK: Supple without venous distension. No thyromegaly or lymphadenopathy. CHEST: Distant breath sounds with crackles at the right lower chest with wheezes bilaterally. CARDIAC: Heart sounds irregular S1, S2 with no murmur or rub. ABDOMEN: Soft, scaphoid. No masses, no organomegaly or tenderness. EXTREMITIES: Mild varicosities, minimal edema. NEUROLOGIC: Reflexes are normal. There were no gross motor deficits. Cranial nerves are grossly intact. RECTAL: Exam is deferred. SKIN: Cool and dry. IMPRESSION 1. Basilar pneumonia with hypoxemia. 2. Rule out pulmonary embolism. 3. COPD with emphysema and chronic bronchitis 4. Status post pericardial window placement for pericardial effusion. 5. History of nicotine dependency. 6. Dehydration resolved PLAN The patient will be placed on O2 via flow at 60% FIO2 and weaned down, BiPap placed at night to 12/5 and 50% FIO2, nebulized DuoNeb solution continued q.i.d. Levaquin 500 mg IV once daily. Sputum sent for Gram stain culture. IMAGING STUDIES CTA of the chest to rule out PE and heparin subcu added 5000 units b.i.d. Repeat a chest x-ray and CBC and we will follow the case with you, Dr. Canales. Thank you for this consultation. MD ESTHER Malloy/ /3:38 PM /4:19 PM
[2017-07-20] MEDS ORDERED: IOHEXOL 350 MG/ML 10 ML VIAL (for RAD DIAG) IVCONTRAST ONE (17:16)
[2017-07-20] MEDS: LEVOFLOXACIN 500 MG PREMIX INJ 100 ML IV SCH (17:17)
--- NOTE | 2017-07-20 17:28 | RADRPT ---
EXAM DATE/TIME: 07/20/2017 16:49 [facility] COMPARISON: CHEST SINGLE AP, July 20, 2017, 15:43. INDICATIONS : Hypoxic IV CONTRAST: 50 cc Omnipaque 350 (iohexol) IV RADIATION DOSE: 23.12 CTDIvol (mGy) MEDICAL HISTORY : Cardiovascular disease. Chronic obstructive pulmonary disease. SURGICAL HISTORY : Tubal ligation. Hysterectomy.Appendectomy.Paricardial window ENCOUNTER: Initial ACUITY: 1 day PAIN SCALE: 0/10 LOCATION: chest TECHNIQUE: Volumetric scanning of the chest was performed using a pulmonary embolism protocol MIP images were re constructed. Using automated exposure control and adjustment of the mA and/or kV according to patien t size, radiation dose was kept as low as reasonably achievable to obtain optimal diagnostic quality images. DICOM format image data is available electronically for review and comparison. Follow-up recommendations for detected pulmonary nodules are based at a minimum on nodule size and pa tient risk factors according to Fleischner Society Guidelines. FINDINGS: PULMONARY ARTERIES: Segmental and subsegmental pulmonary arterial filling defects are identified in both lung bases espec ially on the right. LUNGS: Extensive interstitial prominence with underlying groundglass opacity is present throughout both lung s. There are focal areas of consolidation in both lower lobes scratch that. PLEURAE: Small bilateral effusions are noted. MEDIASTINUM: Significant adenopathy is identified in the right hilum and subcarinal region. The heart is moderatel y large with significant right ventricular and right atrial enlargement. MUSCULOSKELETAL: Within normal limits for patient age. MISCELLANEOUS: The visualized upper abdominal organs demonstrate no acute abnormality. CONCLUSION: 1. Bibasilar subsegmental and segmental pulmonary emboli. 2. Extensive interstitial and alveolar infiltration throughout the lungs characteristic of pulmonary edema and possible superimposed pneumonitis. 3. Right hilar and subcarinal lymphadenopathy. 4. Significant right-sided heart dilatation Aftab Snyder MD on July 20, 2017 at 17:14 Board Certified Radiologist. This report was verified electronically.
[2017-07-20] MEDS: RESP: ALBUTEROL 2.5 MG/IPRATROPIUM 0.5 MG NEB (PRN) NEB (18:58)
[2017-07-20] MEDS ORDERED: HEPARIN SODIUM - SQ 10,000 UNITS/ML VIAL SQ SCH (21:00)
[2017-07-20] MEDS: methylPREDNISolone SOD SUCC 40 MG/1 ML VIAL IV PUSH SCH (21:28)
[2017-07-20] MEDS: ENOXAPARIN SODIUM 60 MG/0.6 ML SYRINGE SQ SCH (21:29)
[2017-07-20] MEDS: MONTELUKAST SODIUM 10 MG TAB PO SCH (21:29)
[2017-07-20] MEDS: BUDESONIDE-FORMOTEROL 160/4.5 MCG INHALER INH SCH (21:31)
[2017-07-21] VITALS (14 sets, daily range): BP systolic 94–128; BP diastolic 56–77; PULSE 80–107; RESP 16–22; TEMP 97.7–98.8; O2SAT 91–99
[2017-07-21] MEDS: CHLORHEXIDINE GLUCONATE 2 % 1 PACK (2 CLOTHS) TOP SCH (04:00)
[2017-07-21] MEDS: PANTOPRAZOLE SOD 40 MG DELAYED RELEASE TAB PO SCH (05:39)
[2017-07-21] MEDS: methylPREDNISolone SOD SUCC 40 MG/1 ML VIAL IV PUSH SCH ×3 (05:39→22:17)
[2017-07-21] MEDS: RESP: ALBUTEROL 2.5 MG/IPRATROPIUM 0.5 MG NEB (SCH) NEB ×3 (07:36→20:04)
[2017-07-21] MEDS: POLYETHYLENE GLYCOL 17 GM PKG PO SCH (09:00)
[2017-07-21] MEDS: SODIUM CHLORIDE 0.9% FLUSH 10 ML FLUSH IV FLUSH SCH ×2 (09:00→21:00)
[2017-07-21] MEDS: MAGNESIUM HYDROXIDE SUSP 30 ML CUP PO SCH (09:00)
[2017-07-21] MEDS: ENOXAPARIN SODIUM 60 MG/0.6 ML SYRINGE SQ SCH ×2 (09:17→22:17)
[2017-07-21] MEDS: GABAPENTIN 400 MG CAP PO SCH ×4 (09:18→22:16)
[2017-07-21] MEDS: MULTIVITAMINS/MINERALS THERAPEUTIC TAB PO SCH (09:18)
[2017-07-21] MEDS: DOCUSATE SODIUM 50 MG/SENNA 8.6 MG TAB PO SCH ×2 (09:18→21:00)
[2017-07-21] MEDS: FUROSEMIDE 40 MG/4 ML VIAL IV PUSH SCH ×2 (09:18→17:14)
[2017-07-21] MEDS: ASPIRIN 81 MG CHEW TAB PO SCH (09:18)
[2017-07-21] MEDS: POTASSIUM CHLORIDE 10 MEQ CONTROLLED RELEASE TAB PO SCH ×2 (09:18→22:16)
[2017-07-21] MEDS: BUDESONIDE-FORMOTEROL 160/4.5 MCG INHALER INH SCH ×2 (09:19→21:00)
[2017-07-21] MEDS ORDERED: RESP: ALBUTEROL 2.5 MG/3 ML NEB (PRN) NEB (09:45)
--- NOTE | 2017-07-21 10:14 | HHI.CCPN ---
Subjective Remarks/Hospital Course This is a 77-year-old female that presented from PCP office via ambulance due to hypoxia and shortness of breath. She was seen at [facility] [place] diagnosed with pneumonia and discharged with a prescription for azithromycin, at that time her BP in P was within normal limits, and troponin was notably less than 0.02, and influenza antigen negative. Last evening it was reported by her in the middle of the night the patient went to the bathroom and fell question unknown if there was any LOC, her daughter picked her up and put her back to bed . This a.m., she was transported by family for follow-up with her PCP today as directed, but while in the office, she passed out. Per EMS, she was cyanotic in the doctor's office. Her only complaint is of weakness and difficulty breathing. She denied any chest pain or abdominal pain. Upon admission to the ED today the patient was noted to have an elevated lactate level, mild leukocytosis with a metabolic acidosis. The patient was noted to be hypotensive systolic blood pressure in the 70s, venous ABG was drawn her SVO2 was notably 58. The patient was bolused with 2 L IV fluid, and received azithromycin 500 mg, vancomycin 1 g, and cefepime 2 g. a central line was placed and the patient was initiated on norepinephrine infusion .The patient is was notably audibly wheezing initially on nonrebreather received 2 DuoNeb treatments and subsequently had been weaned down to nasal cannula 3 L with O2 saturation greater than 92%. A D-dimer was ordered. The patient upon presentation to the ED to be lethargic, easily arousable and answering questions appropriately. Upon entering the ED, the patient was lethargic but arousable answering my questions, blood pressure was 159/over 70s on norepinephrine at 2 mcgs/minute. Imaging studies CT brain, and chest are still pending. Critical care medicine was consulted. 07/17: Upon admission to CVICU on 07/16. The patient was noted to have increasing chest pain increasing difficulty breathing. Inability to obtain blood pressure by Dinamap , and 12-lead EKG had been obtained showing low voltage in all leads. An art line was placed, and a stat echo was performed showing a large pericardial effusion/cardiac tamponade. The patient was emergently transported to [facility], 900 cc fluid removed and mediastinal chest tube placed. No fluid labs sent for cytology, immunology, and ruling out an infectious process. WBC count of pleural fluid was noted to be significantly elevated. Pain patient continues on antibiotics, ID consulted appreciate recommendations. Throughout the night the patient maintained hemodynamic stability currently on phenylephrine 50 mcgs/minute. This a.m. the patient is alert and oriented, CPAP trials underway with anticipation for extubation. The patient continues to be coagulopathic, INR 1.6 this a.m. with no active signs of bleeding, and minimal chest tube output. FFP and cryoprecipitate ordered. Plan for CT of the abdomen and pelvis post extubation. Lactic acid noted to be downtrending. Subjective: 07/21: Currently high flow nasal cannula 30 L per minute/70% FiO2 and commode. Eyes pain. Intermittent paresthesias bilateral lower extremity/chronic due to history transverse myelitis. A.m. laboratories pending. Objective Vital Signs Date Time Temp Pulse Resp B/P (MAP) Pulse Ox O2 Delivery O2 Flow Rate FiO2 07/21/17 08:00 97.8 100 16 112/70 (84) 98 07/21/17 08:00 Bi-Pap 50 07/21/17 07:28 30.00 Intake and Output 07/21/17 07/21/17 07/22/17 08:00 16:00 00:00 Intake Total 420 ml Output Total 800 ml Balance -380 ml Result Diagram: 07/20/17 0336 07/20/17 0336 Other Results Microbiology Date/Time Source Procedure Growth Status 07/16/17 09:22 Blood Peripheral Aerobic Blood Culture - Preliminary NO GROWTH IN 4 DAYS Resulted 07/16/17 09:22 Blood Peripheral Anaerobic Blood Culture - Preliminary NO GROWTH IN 4 DAYS Resulted 07/16/17 23:15 Fluid Pericardial Fluid Fungal Smear - Final NO FUNGAL ELEMENTS SEEN. Resulted 07/16/17 23:15 Fluid Pericardial Fluid Fungal Culture Pending Resulted 07/17/17 01:15 Sputum Expectorated Sputum Gram Stain - Final Complete 07/17/17 01:15 Sputum Expectorated Sputum Sputum Culture - Final LIGHT GROWTH NORMAL RESPIRATORY CASEY Complete 07/16/17 11:45 Urine Catheterized Urine Legionella Antigen - Final PRESUMPTIVE NEGATIVE FOR LEGIONELLA P... Complete 07/16/17 11:45 Urine Catheterized Urine Streptococcus pneumoniae Antigen (M - Final PRESUMPTIVE NEGATIVE FOR STREPTOCOCCU... Complete Imaging Last Impressions Chest X-Ray 07/20/17 0000 Signed Impressions: Service Date/Time: Thursday, July 20, 2017 15:43 - CONCLUSION: Stable bilateral pulmonary infiltrates, right greater than left. David Zelaya MD CT Angiography 07/20/17 0000 Signed Impressions: Service Date/Time: Thursday, July 20, 2017 16:49 - CONCLUSION: 1. Bibasilar subsegmental and segmental pulmonary emboli. 2. Extensive interstitial and alveolar infiltration throughout the lungs characteristic of pulmonary edema and possible superimposed pneumonitis. 3. Right hilar and subcarinal lymphadenopathy. 4. Significant right-sided heart dilatation Aftab Snyder MD Objective Remarks GENERAL: 69-year-old female, critically ill currently on high flow nasal cannula SKIN: Warm and dry. HEAD: Atraumatic. Normocephalic. EYES: Pupils equal and round and 3 mm reactive. EOMI No scleral icterus. No injection or drainage. ENT: No nasal bleeding or discharge. Mucous membranes pink and moist. NECK: Trachea midline. No JVD. CARDIOVASCULAR: Tachycardic, RR..S1, S2, no S4. No rub appreciated. RESPIRATORY: Coarse crackles are appreciated bilaterally through anterior and posterior lung watkins. GASTROINTESTINAL: Abdomen soft, non-tender, nondistended. Active bowel sounds are appreciated MUSCULOSKELETAL: Extremities without significant peripheral edema. No obvious deformities. NEUROLOGICAL: Cranial nerves II through XII grossly intact. Strength is equal symmetric. Has chronic paresthesias bilateral lower extremities but sensation currently intact. Procedures 07/16-pericardial window Date of Insertion: Jul 16, 2017 Date of Insertion: Jul 16, 2017 A/P Assessment and Plan Neuro/Psych History of transverse myelitis Chronic benzodiazepine use Acetaminophen 650 mg every 6 hours when necessary fever/pain 1-5 Oxycodone/acetaminophen 5/25 one tablet every 6 hours when necessary pain 6-10 Currently on Neurontin 800 mg by mouth 4 times a day/home medication Continue alprazolam 0.25 mg by mouth twice a day when necessary Currently on tramadol 100 mg by mouth every 8 hours when necessary breakthrough pain Respiratory: Acute hypoxemic respiratory failure secondary to bilateral pulmonary embolism/ community-acquired pneumonia/COPD exacerbation COPD CTPA 07/20 - bilateral subsegmental and segmental pulmonary embolism, extensive interstitial and alveolar infiltration throughout the lungs. Trace of pulmonary edema/groundglass opacity, right hilar and subcarinal lymphadenopathy and significant right-sided right heart dilatation HFNC 30 L of 70% to maintain saturations greater than or equal to 90% Incentive spirometry while awake Budesonide/formoterol 160/4.5 2 puffs twice a day Albuterol/ipratropium aerosols every 6 hours while awake with albuterol aerosols every 2 hours as needed for dyspnea Methylprednisolone 40 mill grams IV every 8 hours Montelukast 10 mg by mouth daily Followed by Dr. Cox - pulmonology Tobacco cessation self education booklet provided. Currently doesn't wish to have nicotine patch at the present time. Cardiovascular: History of arrhythmia (irregular rhythm) Cardiac Tamponade - hemorrhagic/exudative by criteria Pericardial effusion S/P Pericardial window 07/[address] Huber - -900 cc hemorrhagic fluid - 32 Armenian mediastinal tube removed 07/19 Elevated troponin Continue on aspirin 81 mg daily Diuresing with furosemide 40 mill grams IV twice a day with KCl 30 mEq twice a day supplementation 2-D echo - The left ventricular systolic function is normal with an estimated ejection fraction in the range of 60-65%. Normal left ventricular size. Wall thickness is normal. No regional wall motion abnormalities are present. Aortic valve sclerosis is present. There is trace tricuspid valve regurgitation. The estimated pulmonary arterial pressure is 24 mmHg. There is large pericardial effusion present. Echocardiographic features were consistent with hemodynamically significant pericardial effusion and tamponade physiology. 07/16 EKG-sinus rhythm 07/16 stat echo performed- large pericardial effusion. Pericardial window (800- 900cc) Exudative by criteria. Hemorrhagic. Histiocyte predominant Renal/ Simpson catheter has been removed Monitor urine output Accurate I's and O's Currently on furosemide 40 mill grams IV twice a day. A.m. laboratories all pending FEN/GI: Elevated transaminases Hypoalbuminemia Currently on general diet Pantoprazole for GI prophylaxis Milk of magnesia 30 cc daily/polyethylene glycol 17 g daily for bowel regimen Replete electrolytes per ICU electrolyte protocol A.m. laboratories all pending Elevated LDH 346, CRP 3.40 Heme/ID: Leukocytosis Normocytic anemia Elevated INR Low fibrinogen Elevated CA 125 Monitor CBC Recheck coags today. Hematology consultation with bilateral pulmonary embolism and hemorrhagic pericardial effusion Currently on enoxaparin 60 mg subcutaneous twice a day for pulmonary embolism Doppler bilateral lower extremity's pending Numerous tumor markers negative except CA 125 Infectious disease following. Currently on levofloxacin 500 mg IV daily Pertinent cultures 07/16 - blood cultures 2 - no growth 07/16 - UA -no growth 07/16 - pericardial fluid - no growth 07/17 - sputum - no growth Endocrine: Hyperglycemia of critical illness Elevated TSH 5.6 Sliding-scale insulin to maintain euglycemia Low T3. Normal T4. Recommend recheck TSH 4-6 weeks after critical illness resolved Prophylaxis: GI Prophylaxis Pantoprazole daily DVT Prophylaxis -- SCDs/enoxaparin 60 mg subcutaneous twice a day Lines: Peripheral IVs 2. Level III follow-up Quan Stewart MD Jul 21, 2017 10:14
[2017-07-21] MEDS ORDERED: ACETAMINOPHEN 325 MG TAB PO PRN (10:45)
[2017-07-21 10:54] LABS: BASOPHIL % 0.1 % (0.0-2.0); HEMATOCRIT 30.9 % (35.0-46.0); HEMOGLOBIN 10.4 GM/DL (11.6-15.3); LYMPH % 1.3 % (9.0-44.0); LYMPHOCYTE # 0.2 TH/MM3 (1.0-4.8); MEAN CELL VOLUME 88.9 FL (80.0-100.0); MEAN CORPUSCULAR HEMOGLOBIN 29.9 PG (27.0-34.0); MEAN CORPUSCULAR HGB CONC 33.6 % (32.0-36.0); MEAN PLATELET VOLUME 9.8 FL (7.0-11.0); MONO % 5.2 % (0.0-8.0); NEUT % 93.4 % (16.0-70.0); PLATELET COUNT 127 TH/MM3 (150-450); RED BLOOD COUNT 3.48 MIL/MM3 (4.00-5.30); RED CELL DISTRIBUTION WIDTH 15.3 % (11.6-17.2); WHITE BLOOD COUNT 18.3 TH/MM3 (4.0-11.0)
--- NOTE | 2017-07-21 10:58 | RADRPT ---
EXAM DATE/TIME: 07/21/2017 10:02 [facility] COMPARISON: No previous studies available for comparison. INDICATIONS : Pulmonary embolism. MEDICAL HISTORY : Chronic obstructive pulmonary disease. Neuropathy. Transverse myelitis. Syncope. Arthritis. SURGICAL HISTORY : Tonsillectomy.Appendectomy. Hysterectomy.Right cataract removal. Tubal ligation. ENCOUNTER: Initial ACUITY: 1 day PAIN SCORE: 0/10 LOCATION: Bilateral legs. TECHNIQUE: Venous ultrasound of the left and right leg was performed from the inguinal ligament to the proximal calf. Real-time, color Doppler and spectral tracing, compression and augmentation techniques were us ed. FINDINGS: RIGHT LEG: There is normal compressibility of the deep venous system from the inguinal region to the proximal ca lf. No echogenic clot is seen in the lumen of the common femoral, femoral, popliteal, and posterior tibial veins. There is a normal response of the venous system to proximal and distal augmentation an d respiration. LEFT LEG: There is normal compressibility of the deep venous system from the inguinal region to the proximal ca lf. No echogenic clot is seen in the lumen of the common femoral, femoral, popliteal, and posterior tibial veins. There is a normal response of the venous system to proximal and distal augmentation an d respiration. CONCLUSION: Negative exam with no evidence of deep venous thrombosis. Narendra Maguire MD on July 21, 2017 at 10:56 Board Certified Radiologist. This report was verified electronically.
[2017-07-21 11:10] LABS: ALBUMIN 2.3 GM/DL (3.4-5.0); ALT (GPT) 249 U/L (10-53); AST (GOT) 119 U/L (15-37); BICARBONATE 31.4 MEQ/L (21.0-32.0); BLOOD UREA NITROGEN 16 MG/DL (7-18); CALCIUM 8.5 MG/DL (8.5-10.1); CHLORIDE 99 MEQ/L (98-107); CREATININE 0.74 MG/DL (0.50-1.00); GLOMERULAR FILTRATION RATE 76 ML/MIN (>89); GLUCOSE,RANDOM 142 MG/DL (74-106); INTERNATIONAL NORMALIZED RATIO 1.2 RATIO; LIPASE 394 U/L (73-393); MAGNESIUM 2.4 MG/DL (1.5-2.5); SODIUM (NA) 139 MEQ/L (136-145)
[2017-07-21 11:12] LABS: FIBRINOGEN GREATER THAN 860 mg/dL (227-377)
[2017-07-21 11:14] LABS: ALKALINE PHOSPHATASE 127 U/L (45-117); PHOSPHORUS 1.9 MG/DL (2.5-4.9); TOTAL BILIRUBIN ADULT 1.4 MG/DL (0.2-1.0); TOTAL PROTEIN 6.4 GM/DL (6.4-8.2)
--- NOTE | 2017-07-21 11:42 | PD.CAR.PN ---
CVT Progress Note Subjective/Hospital Course: Hemodynamically stable without complaints. Doing very well s/p pericardial window 07/18/17 Stable, but hypoxic requiring high-flow O2. Diuresing well on a lasix drip. 07/19/17 Improving, still on high flow O2 07/20/17 c/o dyspnea, but on less O2. Continues to diurese 07/21 CTA chest noted : Bibasilar subsegmental and segmental pulmonary emboli, Extensive interstitial and alveolar infiltration throughout the lungs characteristic of pulmonary edema and possible superimposed pneumonitis. Right hilar and subcarinal lymphadenopathy, Significant right-sided heart dilatation on lovenox bid , remains on high flow 02 and periodic Bipap. CCM re-consulted , Heme-OC consulted path pending from pericardial fluid / hemorrhagic fluid Dr Canales updated daughter and pt at bedside Objective: Vital Signs Date Time Temp Pulse Resp B/P (MAP) Pulse Ox O2 Delivery O2 Flow Rate FiO2 07/21/17 08:00 97.8 100 16 112/70 (84) 98 07/21/17 08:00 98 Bi-Pap 50 07/21/17 08:00 80 07/21/17 07:28 92 High Flow Nasal Cannula 30.00 70 07/21/17 05:47 99 50 07/21/17 04:14 96 60 07/21/17 04:00 98.8 97 18 95/60 (72) 96 07/21/17 04:00 96 Bi-Pap 60 07/21/17 04:00 97 07/21/17 01:25 99 70 07/21/17 00:00 98.8 104 22 94/56 (69) 99 07/21/17 00:00 107 07/21/17 00:00 95 Bi-Pap 100 07/20/17 22:50 98 80 07/20/17 21:00 97 100 07/20/17 20:00 95 Bi-Pap 100 07/20/17 20:00 107 07/20/17 20:00 98.8 107 22 115/72 (86) 95 07/20/17 17:32 99 70 07/20/17 16:00 96 Nasal Cannula 30.00 70 07/20/17 16:00 104 07/20/17 16:00 98.8 104 20 101/66 (78) 94 07/20/17 12:00 99.1 110 24 113/75 (88) 98 07/20/17 12:00 109 07/20/17 12:00 95 Nasal Cannula 30.00 70 07/20/17 11:42 97 High Flow Nasal Cannula 30.00 70 Labs: Laboratory Tests Test 07/21/17 10:48 White Blood Count 18.3 TH/MM3 (4.0-11.0) Red Blood Count 3.48 MIL/MM3 (4.00-5.30) Hemoglobin 10.4 GM/DL (11.6-15.3) Hematocrit 30.9 % (35.0-46.0) Mean Corpuscular Volume 88.9 FL (80.0-100.0) Mean Corpuscular Hemoglobin 29.9 PG (27.0-34.0) Mean Corpuscular Hemoglobin Concent 33.6 % (32.0-36.0) Red Cell Distribution Width 15.3 % (11.6-17.2) Platelet Count 127 TH/MM3 (150-450) Mean Platelet Volume 9.8 FL (7.0-11.0) Neutrophils (%) (Auto) 93.4 % (16.0-70.0) Lymphocytes (%) (Auto) 1.3 % (9.0-44.0) Monocytes (%) (Auto) 5.2 % (0.0-8.0) Eosinophils (%) (Auto) 0.0 % (0.0-4.0) Basophils (%) (Auto) 0.1 % (0.0-2.0) Neutrophils # (Auto) 17.0 TH/MM3 (1.8-7.7) Lymphocytes # (Auto) 0.2 TH/MM3 (1.0-4.8) Monocytes # (Auto) 1.0 TH/MM3 (0-0.9) Eosinophils # (Auto) 0.0 TH/MM3 (0-0.4) Basophils # (Auto) 0.0 TH/MM3 (0-0.2) CBC Comment DIFF FINAL Differential Comment Blood Smear Pathologist Review Prothrombin Time 12.0 SEC (9.8-11.6) Prothromb Time International Ratio 1.2 RATIO Activated Partial Thromboplast Time 32.9 SEC (24.3-30.1) Fibrinogen GREATER THAN 860 mg/dL Blood Urea Nitrogen 16 MG/DL (7-18) Creatinine 0.74 MG/DL (0.50-1.00) Random Glucose 142 MG/DL (74-106) Total Protein 6.4 GM/DL (6.4-8.2) Albumin 2.3 GM/DL (3.4-5.0) Calcium Level 8.5 MG/DL (8.5-10.1) Phosphorus Level 1.9 MG/DL (2.5-4.9) Magnesium Level 2.4 MG/DL (1.5-2.5) Alkaline Phosphatase 127 U/L (45-117) Aspartate Amino Transf (AST/SGOT) 119 U/L (15-37) Alanine Aminotransferase (ALT/SGPT) 249 U/L (10-53) Total Bilirubin 1.4 MG/DL (0.2-1.0) Sodium Level 139 MEQ/L (136-145) Potassium Level 3.1 MEQ/L (3.5-5.1) Chloride Level 99 MEQ/L (98-107) Carbon Dioxide Level 31.4 MEQ/L (21.0-32.0) Anion Gap 9 MEQ/L (5-15) Estimat Glomerular Filtration Rate 76 ML/MIN (>89) Lactic Acid Level 3.6 mmol/L (0.4-2.0) Ammonia LESS THAN 10 MCMOL/L Total Creatine Kinase 99 U/L (26-192) Lipase 394 U/L (73-393) Result Diagram: 07/21/17 1048 07/21/17 1048 Telemetry: ST (1) Severe sepsis (2) Pericardial effusion with cardiac tamponade Plan: s/p pericardial window drained 900cc hemmorahagic fluid path pending (3) Pulmonary emboli Plan: CCM and pulm following on lovenox Heme-OC also consulted (4) Hypoxemia Plan: n high flow 02 Emani Syed Jul 21, 2017 11:42
--- NOTE | 2017-07-21 12:54 | HHI.PR ---
Subjective Remarks Has some SOB. PE on CTA. Output was OK. Has some pulmonary edema Leg vein doppler Negative Objective Vital Signs Date Time Temp Pulse Resp B/P (MAP) Pulse Ox O2 Delivery O2 Flow Rate FiO2 07/21/17 08:00 97.8 100 16 112/70 (84) 98 07/21/17 08:00 98 Bi-Pap 50 07/21/17 08:00 80 07/21/17 07:28 92 High Flow Nasal Cannula 30.00 70 07/21/17 05:47 99 50 07/21/17 04:14 96 60 07/21/17 04:00 98.8 97 18 95/60 (72) 96 07/21/17 04:00 96 Bi-Pap 60 07/21/17 04:00 97 07/21/17 01:25 99 70 07/21/17 00:00 98.8 104 22 94/56 (69) 99 07/21/17 00:00 107 07/21/17 00:00 95 Bi-Pap 100 07/20/17 22:50 98 80 07/20/17 21:00 97 100 07/20/17 20:00 95 Bi-Pap 100 07/20/17 20:00 107 07/20/17 20:00 98.8 107 22 115/72 (86) 95 07/20/17 17:32 99 70 07/20/17 16:00 96 Nasal Cannula 30.00 70 07/20/17 16:00 104 07/20/17 16:00 98.8 104 20 101/66 (78) 94 I/O 07/20/17 07/20/17 07/20/17 07/21/17 07/21/17 07/21/17 07:00 15:00 23:00 07:00 15:00 23:00 Intake Total 720 ml 420 ml Output Total 400 ml 800 ml Balance -400 ml 720 ml -380 ml Intake Oral 720 ml 420 ml Output Urine Total 400 ml 800 ml # Voids 3 3 # Bowel Movements 2 1 Result Diagram: 07/21/17 1048 07/21/17 1048 Objective Remarks GENERAL: Thinly built elderly lady who is pale and mildly dyspneic at rest. HEENT: Head normocephalic. Pupils reactive and equal. Tongue is dry. Throat is injected. Nasal mucosa is clear. NECK: Supple without venous distension. No thyromegaly or lymphadenopathy. CHEST: Distant breath sounds with crackles at the lower chest with wheezes bilaterally. CARDIAC: Heart sounds irregular S1, S2 with no murmur or rub. ABDOMEN: Soft, scaphoid. No masses, no organomegaly or tenderness. EXTREMITIES:No varicosities, minimal edema. NEUROLOGIC: Reflexes are normal. There were no gross motor deficits. Cranial nerves are grossly intact. RECTAL: Exam is deferred. SKIN: Cool and dry. Assessment and Plan Assessment and Plan IMPRESSION 1. Basilar pneumonia with hypoxemia. 2. Rule out pulmonary embolism. 3. COPD with emphysema and chronic bronchitis 4. Status post pericardial window placement for pericardial effusion. 5. History of nicotine dependency. 6. Dehydration resolved Plan : 1. Lovenox 1 mg /Kg BID 2. O2 high flow 60 %. 3. BiPAP at HS11 pm to 5 am 12/5 cm . 4. Nebs qid , duoneb. 5. Add Lasix 20 mg po daily. 6. Continue Levaquin 500 gm daily. 7. CBC,BMP in am 8. Solumedrol 40 mg IV q8h Renny Cox MD Jul 21, 2017 12:54
--- NOTE | 2017-07-21 16:14 | ECHRPT ---
Indication: SHORTNESS OF BREATH CONCLUSIONS Normal left ventricular size and wall thickness. The left ventricular systolic function is normal wi th an estimated ejection fraction in the range of 60-65%. Normal left ventricular wall motion. The right ventricle is moderately dilated. The right ventricular systoilc function is mildly decreased. The right atrial size is moderately dilated. The left atrial size is normal. Mild mitral valve regurgitation. There is moderate tricuspid regurgitation. The estimated pulmonary systolic pressure is 42 mmHg. BP: 112 / 70 HR: 100 Rhythm: Sinus MEASUREMENTS (Male / Female) Normal Values Technical Quality:Fair 2D ECHO LV Diastolic Diameter PLAX 4.1 cm 4.2 - 5.9 / 3.9 - 5.3 cm LV Systolic Diameter PLAX 2.7 cm IVS Diastolic Thickness 0.8 cm 0.6 - 1.0 / 0.6 - 0.9 cm LVPW Diastolic Thickness 0.8 cm 0.6 - 1.0 / 0.6 - 0.9 cm LV Relative Wall Thickness 0.4 RV Internal Dim ED PLAX 3.1 cm LVOT Diameter 2.0 cm Aortic Root Diameter 3.3 cm LA Systolic Diameter LX 2.6 cm 3.0 - 4.0 / 2.7 - 3.8 cm M-MODE AV Cusp Separation MM 1.7 cm DOPPLER AV Peak Velocity 157.0 cm/s AV Peak Gradient 9.9 mmHg AV Mean Gradient 5.0 mmHg AV Velocity Time Integral 21.2 cm LVOT Peak Velocity 69.6 cm/s LVOT Peak Gradient 1.9 mmHg LVOT Velocity Time Integral 11.1 cm LVOT Cardiac Index 2119.3 cm/minm AV Area Cont Eq vti 1.6 cm AV Area Cont Eq pk 1.4 cm Mitral E Point Velocity 57.4 cm/s Mitral A Point Velocity 61.1 cm/s Mitral E to A Ratio 0.9 LV E' Lateral Velocity 13.1 cm/s Mitral E to LV E' Lateral Ratio 4.4 LV E' Septal Velocity 6.0 cm/s Mitral E to LV E' Septal Ratio 9.5 TR Peak Velocity 284.0 cm/s TR Peak Gradient 32.3 mmHg Right Atrial Pressure 10.0 mmHg Pulmonary Artery Systolic Pressu 42.3 mmHg Right Ventricular Systolic Press 42.3 mmHg PV Peak Velocity 65.8 cm/s PV Peak Gradient 1.7 mmHg FINDINGS LEFT VENTRICLE Normal left ventricular size and wall thickness. The left ventricular systolic function is normal wi th an estimated ejection fraction in the range of 60-65%. Normal wall motion. RIGHT VENTRICLE The right ventricle is moderately dilated. The right ventricular systoilc function is mildly decreased. LEFT ATRIUM The left atrial size is normal. RIGHT ATRIUM The right atrial size is moderately dilated. ATRIAL SEPTUM Normal atrial septal thickness without atrial level shunting by limited color doppler interrogation. AORTA The aortic root and proximal ascending aorta are normal in size on limited imaging. MITRAL VALVE Mild mitral valve regurgitation. AORTIC VALVE Trileaflet aortic valve. No aortic valve stenosis or regurgitation. TRICUSPID VALVE There is moderate tricuspid regurgitation. The estimated pulmonary systolic pressure is 42 mmHg. PULMONARY VALVE Mild to moderate pulmonary valve regurgitation. VESSELS The inferior vena cava is normal in size. PERICARDIUM No pericardial effusion. Abran Mccarthy MD (Electronically Signed) Final Date:21 July 2017 16:13
--- NOTE | 2017-07-21 16:25 | RADRPT ---
EXAM DATE/TIME: 07/21/2017 15:43 [facility] COMPARISON: CT PULMONARY ANGIOGRAM, July 20, 2017, 16:49. INDICATIONS : Evaluate common bile duct. MEDICAL HISTORY : Chronic obstructive pulmonary disease. Neuropathy. Transverse myelitis. Syncope. Arthritis. SURGICAL HISTORY : Tonsillectomy. Appendectomy. Hysterectomy.Right cataract removal. Tubal ligation. ENCOUNTER: Initial ACUITY: 1 day PAIN SCORE: 0/10 LOCATION: Right upper quadrant MEASUREMENTS: LIVER: 12.5 cm length COMMON DUCT: 6 mm RIGHT KIDNEY: 11.1 x 4.9 x 4.5 cm FINDINGS: LIVER: Normal echotexture without focal lesion or ductal dilatation. COMMON DUCT: No intraluminal mass or stone visualized. GALLBLADDER: Surgically absent PANCREAS: The visualized portions are within normal limits. RIGHT KIDNEY: No evidence of hydronephrosis, stone, or mass. CONCLUSION: Unremarkable right upper quadrant ultrasound Arun Tanner MD on July 21, 2017 at 16:19 Board Certified Radiologist. This report was verified electronically.
[2017-07-21] MEDS: LEVOFLOXACIN 500 MG PREMIX INJ 100 ML IV SCH (17:14)
--- NOTE | 2017-07-21 17:17 | HHI.PR ---
Addendum to Inpatient Note Additional Information received a call from Dr Juan wu cytpology: cw metastaqtic carcinoma (? primary: breast, lung?) no e/o infection -will signo off Please reconsult ID if needed Merle Khan MD Jul 21, 2017 17:17
[2017-07-21] MEDS: RESP: BUDESONIDE 0.5 MG/2 ML NEB NEB PRN (20:04)
[2017-07-21] MEDS ORDERED: POTASSIUM CHLORIDE 20 MEQ CONTROLLED RELEASE TAB PO SCH (21:00)
[2017-07-21] MEDS: MONTELUKAST SODIUM 10 MG TAB PO SCH (22:16)
[2017-07-21] MEDS ORDERED: PHYTONADIONE 2.5 MG/SWFI 2.5 ML ORAL SYR PO ONE (22:30)
--- NOTE | 2017-07-21 23:27 | MB ---
cc: [facility] DATE OF CONSULTATION: 07/21/2017 DATE OF : [address] Stewart. CHIEF COMPLAINT: Dr. 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 HISTORY OF PRESENT ILLNESS Mrs. Geiger is a 77 year-old woman well-known patient to Dr. Hima Marion. She had progressive symptoms of shortness of breath over the past month leading her to sleep upright. She denies any chest pain. No fevers, chills or night sweats. She had progressive symptoms of shortness of breath and was seen at [facility] and was diagnosed with pneumonia and prescribed antibiotic therapy at home. She returned when she fell in the bathroom versus passed out. She was brought to her PCP's office where she passed out again. EMS was called at the physician's office. She was cyanotic. She was weak, had difficulty breathing. She was hypotensive and was taken emergently to surgery by Dr. Albania Canales for cardiogenic shock from cardiac tamponade. Emergent pericardial window was performed July 16. Fluid was collected and submitted for cytology and culture. The fluid was bloody. She was transferred to ICU for monitoring. Infectious Disease was consulted. Microbiology studies are negative. She recovered from the pericardial window with initial improvement but remained hypoxic. Ultimately a CT angiogram was performed on 07/20 that showed bibasilar subsegmental and segmental pulmonary emboli. There was interstitial and alveolar infiltration throughout the lung and right hilar and subcarinal lymphadenopathy. The cytology from her pericardial window showed positive for malignant cells, suspicious for adenocarcinoma. The admission INR was 1.3. She denies taking anticoagulant therapy. In light of the coagulopathy, hematology/oncology is consulted. Since her diagnosis of pulmonary embolism she was been started on low-molecular weight heparin, Lovenox 60 milligrams subcu, twice a day. She has tolerated that well. Since her pericardial window, her hemoglobin had decreased and maría of 9.7 is currently stable at 10.4. She has leukocytosis predominantly neutrophils. She has normal renal function. Liver function shows an elevation AST, ALT, alkaline phosphatase. Bilirubin is mildly elevated. Ultrasound of the gallbladder was negative. Lipase is mildly elevated. Albumin is decreased. Tumor markers were obtain a CA-125 was elevated, alpha-fetoprotein CA15.3, CA19.9 and CEA are normal. She reports being up-to-date with her mammograms. She has had a colonoscopy in light of her father's history of colon cancer. 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 She denies any weight loss recently. Her appetite is good. Her performance is good and was driving up to the time of her admission. She denies any changes in bowel habits. No urinary complaints. She denies any history of bruising or bleeding. The rest of her review of systems is negative. PAST MEDICAL HISTORY: 1. Arthritis. 2. Irregular heart beat. 3. Sinusitis. 4. History of transverse myelitis. 5. Peripheral neuropathy. 6. Chronic tobacco use. PAST SURGICAL HISTORY 1. Appendectomy. 2. Pericardial window. 3. Cataract removal. 4. Tubal ligation 5. Total hysterectomy 6. Tonsillectomy. SOCIAL HISTORY Denies any alcohol or illicit drug use. She smokes actively. She started smoking as a teenager and at one point was smoking up to three packs per day. FAMILY HISTORY Significant for father who of colon cancer in his 70s. ALLERGIES NO KNOWN DRUG ALLERGIES. CURRENT MEDICATIONS Include: 1. Pulmicort. 2. Ultram 3. Solu-Medrol. 4. Symbicort. 5. Lovenox. 6. DuoNeb 7. Levofloxacin. 8. Lasix 9. Theragran M. 10. Singulair. 11. Milk of Magnesia. 12. MiraLax. 13. Lorin-Colace 14. Aspirin 15. Protonix PHYSICAL EXAMINATION: VITAL SIGNS: Temperature 97.7, heart rate 99, respiratory rate 16, blood pressure 108/59, saturation 93 to 98%. GENERAL: Mrs. Geiger is a well-developed slender 77-year-old woman who looks her stated age. She is awake, alert, responsive. She is cooperative. HEENT: Her pupils are round, reactive to light and accommodation. Oropharynx is clear. Neck: Supple. No adenopathy. No axillary adenopathy. Lungs: Diminished breath sounds throughout. Cardiovascular: Exam reveals normal rate and rhythm. Abdomen: Benign. There is a midline sternotomy scar, dry dressing is in place in the upper abdomen. Lower extremities: No edema. Neurological: Exam is significant for peripheral neuropathy. She moves all four extremities. Skin: No rash. LABORATORY DATA: Labs from 07/21/2017 shows white blood cell count 18.3, hemoglobin 10.4, platelet count 127,000. Liver functions are elevated. Tumor marker CA-125 is elevated at 42. ASSESSMENT AND PLAN: Mrs. Geiger is a 77 year-old woman with multiple medical problems, long history of smoking. She presents with cardiac tamponade and shock. She required emergent pericardial window for hemorrhagic malignant pericardial effusion. I discussed with Mrs. Geiger the cytology findings that show positive for malignant cells suspicious for adenocarcinoma. CT scan of the chest is significant for infiltrates and effusion. A distinct lung mass could not be identified. Clinical suspicion for primary bronchogenic carcinoma is high. She has some mediastinal adenopathy but this may be associated with her recent effusion. In light of the elevated CA-[address] scan of the abdomen and pelvis. Liver functions are elevated. Liver protocol to include the pancreas will be performed. Her amylase and lipase is elevated. CA19.9 is negative but this does not exclude pancreatic primary. We discussed continued anticoagulation with low-molecular weight heparin. Noted is mild coagulopathy with PT elevated at 1.3. There is no clear explanation for the elevation of the PT except for the recent antibiotic use. She reports eating good amounts and regular vegetables. She is noted to have coagulopathy which I suspect is acquired probably from consumption of coagulation factors from her hemorrhagic event. She is noted to have resolution of the coagulopathy with normalization of PT/INR. It does not appear that she received any vitamin K. I will attempt to perform a mixing study is deferred. Current use of low-molecular weight heparin will complicate this. The PTT at one point was normal. We will obtain antiphospholipid antibody panel without lupus anticoagulant. Empiric treatment with vitamin K will be offered. We will monitor the correction of the coagulopathy. In the meantime anticoagulant therapy with Lovenox continues for pulmonary embolism. Thromboembolic source of the lower extremity is not identified. Suspect that the thromboembolic source was the right side of the heart in light of the tamponade. There is no clot identified in the echo, however, the CT angiogram notes significant right sided heart dilatation. Anticoagulant therapy is recommended. Continue with low-molecular weight heparin. She would be a candidate for the new oral anticoagulant pending resolution of liver function elevation. She has normal renal function. Defer from using the new oral anticoagulant in light of its long half life and need to stop for least two days prior to procedures that may be necessary during hospital admission. We can consider switching her to new oral anticoagulant once ready for discharge. Her questions were answered to her satisfaction. MD JESUS MANUEL Edwards/MATIAS /9:50 PM /10:49 PM
[2017-07-22] VITALS (14 sets, daily range): BP systolic 100–116; BP diastolic 58–73; PULSE 88–96; RESP 16–20; TEMP 97.6–98.6; O2SAT 90–99
[2017-07-22] MEDS: PANTOPRAZOLE SOD 40 MG DELAYED RELEASE TAB PO SCH (05:24)
[2017-07-22] MEDS: methylPREDNISolone SOD SUCC 40 MG/1 ML VIAL IV PUSH SCH ×3 (05:24→21:16)
[2017-07-22 05:53] LABS: HEMATOCRIT 30.1 % (35.0-46.0); HEMOGLOBIN 9.8 GM/DL (11.6-15.3); MEAN CELL VOLUME 89.1 FL (80.0-100.0); MEAN CORPUSCULAR HGB CONC 32.5 % (32.0-36.0); PLATELET COUNT 153 TH/MM3 (150-450); RED BLOOD COUNT 3.38 MIL/MM3 (4.00-5.30); RED CELL DISTRIBUTION WIDTH 14.8 % (11.6-17.2)
[2017-07-22 06:00] LABS: RETIC # 103.3 MIL/L (20.0-150.0); RETIC % 3.1 % (0.4-3.0)
--- NOTE | 2017-07-22 06:05 | RADRPT ---
EXAM DATE/TIME: 07/22/2017 04:57 [facility] COMPARISON: CHEST SINGLE AP, July 20, 2017, 15:43. INDICATIONS : Shortness of breath, possible pneumothorax. MEDICAL HISTORY : Chronic obstructive pulmonary disease. SURGICAL HISTORY : Hysterectomy. ENCOUNTER: Subsequent ACUITY: 1 week PAIN SCORE: 0/10 LOCATION: Bilateral chest FINDINGS: There is minimal improvement in aeration of the lungs with persistent airspace process right lung bas e and diffuse interstitial process in both lungs. Heart and mediastinum are unremarkable for techniqu e. CONCLUSION: Minimal improvement in the aeration of lungs.. Guillermo Vo MD on July 22, 2017 at 6:03 Board Certified Radiologist. This report was verified electronically.
[2017-07-22 06:15] LABS: ALBUMIN 2.1 GM/DL (3.4-5.0); AST (GOT) 188 U/L (15-37); BICARBONATE 29.7 MEQ/L (21.0-32.0); BLOOD UREA NITROGEN 25 MG/DL (7-18); CALCIUM 8.3 MG/DL (8.5-10.1); CHLORIDE 99 MEQ/L (98-107); CREATININE 0.62 MG/DL (0.50-1.00); DIRECT BILIRUBIN ADULT 0.3 MG/DL (0.0-0.2); GLOMERULAR FILTRATION RATE 93 ML/MIN (>89); GLUCOSE,RANDOM 128 MG/DL (74-106); LDH SERUM 607 U/L (84-246); MAGNESIUM 2.3 MG/DL (1.5-2.5); SODIUM (NA) 137 MEQ/L (136-145)
[2017-07-22 06:18] LABS: ALKALINE PHOSPHATASE 137 U/L (45-117); ALT (GPT) 259 U/L (10-53); INDIRECT BILIRUBIN 0.6 MG/DL (0.0-0.8); PHOSPHORUS 2.6 MG/DL (2.5-4.9); TOTAL BILIRUBIN ADULT 0.9 MG/DL (0.2-1.0); TOTAL PROTEIN 5.9 GM/DL (6.4-8.2)
[2017-07-22] MEDS ORDERED: DIATRIZOATE MEGLUM/DIATRIZOATE SOD 9 ML CUP PO ONE (07:00)
--- NOTE | 2017-07-22 07:30 | HHI.CCPN ---
Subjective Remarks/Hospital Course This is a 77-year-old female that presented from PCP office via ambulance due to hypoxia and shortness of breath. She was seen at [facility] diagnosed with pneumonia and discharged with a prescription for azithromycin, at that time her BP in P was within normal limits, and troponin was notably less than 0.02, and influenza antigen negative. Last evening it was reported by her in the middle of the night the patient went to the bathroom and fell question unknown if there was any LOC, her daughter picked her up and put her back to bed . This a.m., she was transported by family for follow-up with her PCP today as directed, but while in the office, she passed out. Per EMS, she was cyanotic in the doctor's office. Her only complaint is of weakness and difficulty breathing. She denied any chest pain or abdominal pain. Upon admission to the ED today the patient was noted to have an elevated lactate level, mild leukocytosis with a metabolic acidosis. The patient was noted to be hypotensive systolic blood pressure in the 70s, venous ABG was drawn her SVO2 was notably 58. The patient was bolused with 2 L IV fluid, and received azithromycin 500 mg, vancomycin 1 g, and cefepime 2 g. a central line was placed and the patient was initiated on norepinephrine infusion .The patient is was notably audibly wheezing initially on nonrebreather received 2 DuoNeb treatments and subsequently had been weaned down to nasal cannula 3 L with O2 saturation greater than 92%. A D-dimer was ordered. The patient upon presentation to the ED to be lethargic, easily arousable and answering questions appropriately. Upon entering the ED, the patient was lethargic but arousable answering my questions, blood pressure was 159/over 70s on norepinephrine at 2 mcgs/minute. Imaging studies CT brain, and chest are still pending. Critical care medicine was consulted. 07/17: Upon admission to CVICU on 07/16. The patient was noted to have increasing chest pain increasing difficulty breathing. Inability to obtain blood pressure by Dinamap , and 12-lead EKG had been obtained showing low voltage in all leads. An art line was placed, and a stat echo was performed showing a large pericardial effusion/cardiac tamponade. The patient was emergently transported to [facility], 900 cc fluid removed and mediastinal chest tube placed. No fluid labs sent for cytology, immunology, and ruling out an infectious process. WBC count of pleural fluid was noted to be significantly elevated. Pain patient continues on antibiotics, ID consulted appreciate recommendations. Throughout the night the patient maintained hemodynamic stability currently on phenylephrine 50 mcgs/minute. This a.m. the patient is alert and oriented, CPAP trials underway with anticipation for extubation. The patient continues to be coagulopathic, INR 1.6 this a.m. with no active signs of bleeding, and minimal chest tube output. FFP and cryoprecipitate ordered. Plan for CT of the abdomen and pelvis post extubation. Lactic acid noted to be downtrending. 07/21: Currently high flow nasal cannula 30 L per minute/70% FiO2 and commode. Eyes pain. Intermittent paresthesias bilateral lower extremity/chronic due to history transverse myelitis. A.m. laboratories pending. Subjective: 07/22: Afebrile. Tolerated BiPAP overnight intermittently. Currently high flow nasal cannula at 50%. [address]. Plan CT abdomen/pelvis today. Appreciate oncology's input. We'll consult Gastroenterology for elevated LFTs and lipase. Objective Vital Signs Date Time Temp Pulse Resp B/P (MAP) Pulse Ox O2 Delivery O2 Flow Rate FiO2 07/22/17 05:22 93 High Flow Nasal Cannula 30.00 60 07/22/17 03:00 90 07/22/17 03:00 97.6 16 112/73 (86) Intake and Output 07/22/17 07/22/17 07/23/17 08:00 16:00 00:00 Intake Total 480 ml Output Total 1300 ml Balance -820 ml Result Diagram: 07/22/1751607/22/1717 Other Results Microbiology Date/Time Source Procedure Growth Status 07/16/17 09:22 Blood Peripheral Aerobic Blood Culture - Final NO GROWTH IN 5 DAYS Complete 07/16/17 09:22 Blood Peripheral Anaerobic Blood Culture - Final NO GROWTH IN 5 DAYS Complete 07/16/17 23:15 Fluid Pericardial Fluid Fungal Smear - Final NO FUNGAL ELEMENTS SEEN. Resulted 07/16/17 23:15 Fluid Pericardial Fluid Fungal Culture Pending Resulted 07/17/17 01:15 Sputum Expectorated Sputum Gram Stain - Final Complete 07/17/17 01:15 Sputum Expectorated Sputum Sputum Culture - Final LIGHT GROWTH NORMAL RESPIRATORY CASEY Complete 07/16/17 11:45 Urine Catheterized Urine Legionella Antigen - Final PRESUMPTIVE NEGATIVE FOR LEGIONELLA P... Complete 07/16/17 11:45 Urine Catheterized Urine Streptococcus pneumoniae Antigen (M - Final PRESUMPTIVE NEGATIVE FOR STREPTOCOCCU... Complete Imaging Last Impressions Chest X-Ray 07/22/17 0600 Signed Impressions: Service Date/Time: June 04:57 - CONCLUSION: Minimal improvement in the aeration of lungs.. K. Ranjan Vo MD Lower Extremity Ultrasound 07/21/17 0000 Signed Impressions: Service Date/Time: Friday, July 21, 2017 10:02 - CONCLUSION: Negative exam with no evidence of deep venous thrombosis. Narendra Maguire MD Gall Bladder Ultrasound 07/21/17 0000 Signed Impressions: Service Date/Time: Friday, July 21, 2017 15:43 - CONCLUSION: Unremarkable right upper quadrant ultrasound Arun Tanner MD CT Angiography 07/20/17 0000 Signed Impressions: Service Date/Time: Thursday, July 20, 2017 16:49 - CONCLUSION: 1. Bibasilar subsegmental and segmental pulmonary emboli. 2. Extensive interstitial and alveolar infiltration throughout the lungs characteristic of pulmonary edema and possible superimposed pneumonitis. 3. Right hilar and subcarinal lymphadenopathy. 4. Significant right-sided heart dilatation Aftab Snyder MD Objective Remarks GENERAL: 77-year-old female, critically ill currently on high flow nasal cannula SKIN: Warm and dry. Well perfused HEAD: Atraumatic. Normocephalic. EYES: Pupils equal and round and 3 mm reactive. No scleral icterus. No injection or drainage. ENT: No nasal bleeding or discharge. Mucous membranes pink and moist. NECK: Trachea midline. No JVD. CARDIOVASCULAR: Tachycardic, RR..S1, S2, no S4. No rub appreciated. RESPIRATORY: Coarse crackles are appreciated bilaterally through anterior and posterior lung watkins. Positive end expiratory wheeze GASTROINTESTINAL: Abdomen soft, non-tender, nondistended. Active bowel sounds are appreciated MUSCULOSKELETAL: Extremities without significant peripheral edema. No obvious deformities. NEUROLOGICAL: Cranial nerves II through XII grossly intact. Strength is equal symmetric. Has chronic paresthesias bilateral lower extremities but sensation currently intact. Procedures 07/16-pericardial window Date of Insertion: Jul 16, 2017 Date of Insertion: Jul 16, 2017 A/P Assessment and Plan Neuro/Psych History of transverse myelitis Chronic benzodiazepine use Acetaminophen 650 mg every 6 hours when necessary fever/pain 1-5 Oxycodone/acetaminophen 5/25 one tablet every 6 hours when necessary pain 6-10 Currently on Neurontin 800 mg by mouth 4 times a day/home medication Continue alprazolam 0.25 mg by mouth twice a day when necessary Currently on tramadol 100 mg by mouth every 8 hours when necessary breakthrough pain Respiratory: Acute hypoxemic respiratory failure secondary to bilateral pulmonary embolism/ community-acquired pneumonia/COPD exacerbation COPD CTPA 07/20 - bilateral subsegmental and segmental pulmonary embolism, extensive interstitial and alveolar infiltration throughout the lungs. Trace of pulmonary edema/groundglass opacity, right hilar and subcarinal lymphadenopathy and significant right-sided right heart dilatation HFNC 30 L of 50% to maintain saturations greater than or equal to 88% As needed BiPAP Incentive spirometry while awake Budesonide/formoterol 160/4.5 2 puffs twice a day Albuterol/ipratropium aerosols every 6 hours while awake with albuterol aerosols every 2 hours as needed for dyspnea Methylprednisolone 40 mill grams IV every 8 hours Montelukast 10 mg by mouth daily Followed by Dr. Cox - pulmonology Tobacco cessation self education booklet provided. Currently doesn't wish to have nicotine patch at the present time. Cardiovascular: History of arrhythmia (irregular rhythm) Cardiac Tamponade - hemorrhagic/exudative by criteria Pericardial effusion S/P Pericardial window 07/[address] Huber - -900 cc hemorrhagic fluid - 32 Danish mediastinal tube removed 07/19 Elevated troponin Continue on aspirin 81 mg daily Diuresing with furosemide 40 mill grams IV twice a day with KCl 30 mEq twice a day supplementation 2-D echo 07/16 - The left ventricular systolic function is normal with an estimated ejection fraction in the range of 60-65%. Normal left ventricular size. Wall thickness is normal. No regional wall motion abnormalities are present. Aortic valve sclerosis is present. There is trace tricuspid valve regurgitation. The estimated pulmonary arterial pressure is 24 mmHg. There is large pericardial effusion present. Echocardiographic features were consistent with hemodynamically significant pericardial effusion and tamponade physiology. 2-D echo 07/21 - Normal left ventricular size and wall thickness. The left ventricular systolic function is normal with an estimated ejection fraction in the range of 60-65%. Normal left ventricular wall motion. The right ventricle is moderately dilated. The right ventricular systoilc function is mildly decreased. The right atrial size is moderately dilated. The left atrial size is normal. Mild mitral valve regurgitation. There is moderate tricuspid regurgitation. The estimated pulmonary systolic pressure is 42 mmHg. 07/16 stat echo performed- large pericardial effusion. Pericardial window (800- 900cc) Pericardial fluid Exudative by criteria. Hemorrhagic. 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 Rising BUN. Decrease furosemide from 40-20 mg IV twice daily FEN/GI: Elevated transaminases Hypoalbuminemia Elevated lipase Currently on heart healthy Pantoprazole for GI prophylaxis Milk of magnesia 30 cc daily/polyethylene glycol 17 g daily for bowel regimen Replete electrolytes per ICU electrolyte protocol CT abdomen/pelvis 07/22 pending Hepatitis panel ordered Gallbladder ultrasound negative. Patient's gallbladder has been removed. No signs of ductal stone/sludge Gastro enterology consulted Heme/ID: Leukocytosis Normocytic anemia Elevated INR Low fibrinogen Elevated CA 125 Malignant cells/adenocarcinoma pericardial fluid Monitor CBC Received the vitamin K 2.5 mg 1 per oncology Hematology consultation with bilateral pulmonary embolism and hemorrhagic malignant pericardial effusion Currently on enoxaparin 60 mg subcutaneous twice a day for pulmonary embolism Pending antiphospholipid antibodies. Numerous tumor markers negative except CA 125 CT abdomen/pelvis ordered. Infectious disease following. Currently on levofloxacin 500 mg IV daily Pertinent cultures 07/16 - blood cultures 2 - no growth 07/16 - UA -no growth 07/16 - pericardial fluid - no growth 07/17 - sputum - no growth Endocrine: Hyperglycemia of critical illness Elevated TSH 5.6 Sliding-scale insulin to maintain euglycemia Low T3. Normal T4. Recommend recheck TSH 4-6 weeks after critical illness resolved Prophylaxis: GI Prophylaxis Pantoprazole daily DVT Prophylaxis -- SCDs/enoxaparin 60 mg subcutaneous twice a day Lines: Peripheral IVs 2. Level III follow-up Quan Stewart MD Jul 22, 2017 07:29
[2017-07-22] MEDS ORDERED: POTASSIUM CHLORIDE 20 MEQ CONTROLLED RELEASE TAB PO ONE (07:45)
[2017-07-22] MEDS: RESP: ALBUTEROL 2.5 MG/IPRATROPIUM 0.5 MG NEB (SCH) NEB ×3 (07:52→20:12)
[2017-07-22] MEDS: RESP: BUDESONIDE 0.5 MG/2 ML NEB NEB PRN (08:16)
[2017-07-22] MEDS: FUROSEMIDE 20 MG/2 ML VIAL IV PUSH SCH ×2 (09:00→18:28)
[2017-07-22] MEDS: POLYETHYLENE GLYCOL 17 GM PKG PO SCH (09:00)
[2017-07-22] MEDS: ENOXAPARIN SODIUM 60 MG/0.6 ML SYRINGE SQ SCH ×2 (09:00→21:18)
[2017-07-22] MEDS: MAGNESIUM HYDROXIDE SUSP 30 ML CUP PO SCH (09:00)
[2017-07-22] MEDS: DOCUSATE SODIUM 50 MG/SENNA 8.6 MG TAB PO SCH ×2 (09:00→21:00)
[2017-07-22] MEDS ORDERED: FUROSEMIDE 20 MG TAB PO SCH (09:00)
[2017-07-22] MEDS ORDERED: PHYTONADIONE 2.5 MG/SWFI 2.5 ML ORAL SYR PO ONE (09:00)
[2017-07-22] MEDS: BUDESONIDE-FORMOTEROL 160/4.5 MCG INHALER INH SCH ×2 (09:00→21:32)
[2017-07-22] MEDS: GABAPENTIN 400 MG CAP PO SCH ×4 (09:01→21:18)
[2017-07-22] MEDS: SODIUM CHLORIDE 0.9% FLUSH 10 ML FLUSH IV FLUSH SCH ×2 (09:01→21:18)
[2017-07-22] MEDS: ASPIRIN 81 MG CHEW TAB PO SCH (09:01)
[2017-07-22] MEDS: MULTIVITAMINS/MINERALS THERAPEUTIC TAB PO SCH (09:02)
[2017-07-22] MEDS: POTASSIUM CHLORIDE 10 MEQ CONTROLLED RELEASE TAB PO SCH ×2 (09:02→21:17)
--- NOTE | 2017-07-22 11:08 | PD.CAR.PN ---
CVT Progress Note Subjective/Hospital Course: Hemodynamically stable without complaints. Doing very well s/p pericardial window 07/18/17 Stable, but hypoxic requiring high-flow O2. Diuresing well on a lasix drip. 07/19/17 Improving, still on high flow O2 07/20/17 c/o dyspnea, but on less O2. Continues to diurese 07/21 CTA chest noted : Bibasilar subsegmental and segmental pulmonary emboli, Extensive interstitial and alveolar infiltration throughout the lungs characteristic of pulmonary edema and possible superimposed pneumonitis. Right hilar and subcarinal lymphadenopathy, Significant right-sided heart dilatation on lovenox bid , remains on high flow 02 and periodic Bipap. CCM re-consulted , Heme-OC consulted path pending from pericardial fluid / hemorrhagic fluid Dr Canales updated daughter and pt at bedside 07/22 pericardial fluid : : POSITIVE FOR MALIGNANT CELLS. SUSPICIOUS FOR ADENOCARCINOMA. Dr Sahu following remains on lovenox for bilateral PE now on 50% or 30L 02 up in chair, feels slightly better no further CVS , will sign off , please reconsult prn Objective: GENERAL: SKIN: Warm and dry. dressing in place to prior chest tube therapy site coordinator: Normocephalic. EYES: No scleral icterus. No injection or drainage. NECK: Supple, trachea midline. No JVD or lymphadenopathy. CARDIOVASCULAR: Regular rate and rhythm without murmurs, gallops, or rubs. RESPIRATORY: Breath sounds equal bilaterally. No accessory muscle use. diminished n bases, otherwise [place] GASTROINTESTINAL: Abdomen soft, non-tender, nondistended. MUSCULOSKELETAL: No cyanosis, or edema. BACK: Nontender without obvious deformity. No CVA tenderness. Vital Signs Date Time Temp Pulse Resp B/P (MAP) Pulse Ox O2 Delivery O2 Flow Rate FiO2 07/22/17 07:52 95 High Flow Nasal Cannula 30.00 50 07/22/17 07:49 97.6 92 20 116/72 (87) 91 07/22/17 07:48 91 Nasal Cannula 30.00 60 07/22/17 07:48 92 07/22/17 05:22 93 High Flow Nasal Cannula 30.00 60 07/22/17 04:40 99 40 07/22/17 03:14 99 Bi-Pap 50 07/22/17 03:00 90 07/22/17 03:00 97.6 89 16 112/73 (86) 98 12/28/17 00:34 98 Bi-Pap 50 07/22/17 00:20 97 50 07/21/17 23:00 92 Nasal Cannula 30.00 60 07/21/17 23:00 98 07/21/17 23:00 97.8 98 16 101/60 (74) 91 07/21/17 20:04 96 High Flow Nasal Cannula 35.00 60 07/21/17 19:00 91 Nasal Cannula 30.00 60 07/21/17 19:00 89 07/21/17 19:00 97.9 89 16 128/77 (94) 91 07/21/17 17:15 93 High Flow Nasal Cannula 30.00 60 07/21/17 15:00 99 07/21/17 15:00 97.7 99 16 108/59 (75) 92 07/21/17 15:00 92 Nasal Cannula 30.00 60 07/21/17 13:00 80 07/21/17 12:00 86 Labs: Laboratory Tests Test 07/22/17 05:17 White Blood Count 20.0 TH/MM3 (4.0-11.0) Red Blood Count 3.38 MIL/MM3 (4.00-5.30) Hemoglobin 9.8 GM/DL (11.6-15.3) Hematocrit 30.1 % (35.0-46.0) Mean Corpuscular Volume 89.1 FL (80.0-100.0) Mean Corpuscular Hemoglobin 29.0 PG (27.0-34.0) Mean Corpuscular Hemoglobin Concent 32.5 % (32.0-36.0) Red Cell Distribution Width 14.8 % (11.6-17.2) Platelet Count 153 TH/MM3 (150-450) Mean Platelet Volume 10.0 FL (7.0-11.0) Reticulocyte Count 3.1 % (0.4-3.0) Absolute Reticulocyte Count 103.3 MIL/L (20.0-150.0) Blood Urea Nitrogen 25 MG/DL (7-18) Creatinine 0.62 MG/DL (0.50-1.00) Random Glucose 128 MG/DL (74-106) Total Protein 5.9 GM/DL (6.4-8.2) Albumin 2.1 GM/DL (3.4-5.0) Calcium Level 8.3 MG/DL (8.5-10.1) Phosphorus Level 2.6 MG/DL (2.5-4.9) Magnesium Level 2.3 MG/DL (1.5-2.5) Alkaline Phosphatase 137 U/L (45-117) Aspartate Amino Transf (AST/SGOT) 188 U/L (15-37) Alanine Aminotransferase (ALT/SGPT) 259 U/L (10-53) Lactate Dehydrogenase 607 U/L (84-246) Total Bilirubin 0.9 MG/DL (0.2-1.0) Direct Bilirubin 0.3 MG/DL (0.0-0.2) Sodium Level 137 MEQ/L (136-145) Potassium Level 3.6 MEQ/L (3.5-5.1) Chloride Level 99 MEQ/L (98-107) Carbon Dioxide Level 29.7 MEQ/L (21.0-32.0) Anion Gap 8 MEQ/L (5-15) Estimat Glomerular Filtration Rate 93 ML/MIN (>89) Indirect Bilirubin 0.6 MG/DL (0.0-0.8) Result Diagram: 07/22/1751607/22/17516 (1) Severe sepsis (2) Pericardial effusion with cardiac tamponade Plan: s/p pericardial window drained 900cc hemmorahagic fluid path: POSITIVE FOR MALIGNANT CELLS, SUSPICIOUS FOR ADENOCARCINOMA. Oncology following no further surgical issues, will sign off (3) Pulmonary emboli Plan: CCM and pulm following on lovenox Heme-OC also consulted (4) Hypoxemia Plan: n high flow 02 Emani Syed Jul 22, 2017 11:08
[2017-07-22] MEDS ORDERED: EPINEPHrine HCL (1:10,000) 1 MG/10 ML SYRINGE ONE (11:52)
[2017-07-22] MEDS ORDERED: ATROPINE SULFATE 1 MG/10 ML SYRINGE ONE (11:52)
[2017-07-22] MEDS ORDERED: IOHEXOL 350 MG/ML 10 ML VIAL (for RAD DIAG) IVCONTRAST ONE (12:34)
--- NOTE | 2017-07-22 12:53 | RADRPT ---
EXAM DATE/TIME: 07/22/2017 11:58 [facility] COMPARISON: US ABDOMEN - GALLBLADDER, July 21, 2017, 15:43. INDICATIONS : Elavated CA125 and LFT and lipase. IV CONTRAST: 75 cc Omnipaque 350 (iohexol) IV ORAL CONTRAST: Prescribed oral contrast ingested. RADIATION DOSE: 6.64 CTDIvol (mGy) MEDICAL HISTORY : Chronic obstructive pulmonary disease. Hernia, hiatal. SURGICAL HISTORY : Appendectomy. Hysterectomy. ENCOUNTER: Initial ACUITY: 1 day PAIN SCALE: Non-responsive LOCATION: Abdomen TECHNIQUE: Volumetric scanning of the abdomen and pelvis was performed. Using automated exposure control and ad justment of the mA and/or kV according to patient size, radiation dose was kept as low as reasonably achievable to obtain optimal diagnostic quality images. DICOM format image data is available electro nically for review and comparison. FINDINGS: LOWER LUNGS: There is scattered interstitial infiltrates and parenchymal infiltrates in both lung bases. LIVER: Homogeneous density without lesion. There is no dilation of the biliary tree. No gallbladder, surgi franki removed. 5 mm cyst in the left lobe of the liver. SPLEEN: Normal size without lesion. PANCREAS: Within normal limits. KIDNEYS: Normal in size and shape. There is no mass, stone or hydronephrosis. ADRENAL GLANDS: Within normal limits. VASCULAR: There is no aortic aneurysm. BOWEL/MESENTERY: The stomach, small bowel, and colon demonstrate no acute abnormality. There is no free intraperitone al air or fluid. There is stool throughout the colon. No inflammatory changes are demonstrated. ABDOMINAL WALL: Within normal limits. RETROPERITONEUM: There is no lymphadenopathy. BLADDER: No wall thickening or mass. REPRODUCTIVE: Within normal limits. INGUINAL: There is no lymphadenopathy or hernia. MUSCULOSKELETAL: Diffuse primary bony degenerative changes throughout the lumbar spine and pelvis. Pars defects bilate rally at L5. Curvature of the lumbar spine to the left. Disc degeneration with disc space narrowing t hroughout the lumbar spine. CONCLUSION: 1. Status post cholecystectomy. 2. 5 mm hepatic cyst in the left lobe. 3. Scattered interstitial infiltrates and parenchymal infiltrates in both lung bases. 4. Diffuse primary degenerative changes, disc degeneration and disc space narrowing throughout the zhen mbar spine. David Zelaya MD on July 22, 2017 at 12:47 Board Certified Radiologist. This report was verified electronically.
[2017-07-22 13:07] LABS: HEPATITIS A AB IGM NEGATIVE (NEGATIVE); HEPATITIS B CORE AB IGM NEGATIVE (NEGATIVE); HEPATITIS B SURFACE ANTIGEN NEGATIVE (NEGATIVE); HEPATITIS C AB IgG NEGATIVE (NEGATIVE)
[2017-07-22] MEDS: LEVOFLOXACIN 500 MG PREMIX INJ 100 ML IV SCH (16:05)
--- NOTE | 2017-07-22 18:23 | HHI.PR ---
Subjective Remarks Better today.PE on CTA. On Lovenox.Pericardial fluid shows Possible malignancy. path on pericardium shows Adenocarcinoma. Output was OK. Has some pulmonary edema Leg vein doppler Negative Objective Vital Signs Date Time Temp Pulse Resp B/P (MAP) Pulse Ox O2 Delivery O2 Flow Rate FiO2 07/22/17 16:44 90 Nasal Cannula 3.00 07/22/17 15:11 94 Nasal Cannula 4.00 07/22/17 15:11 96 07/22/17 15:10 97.7 96 20 108/67 (81) 94 07/22/17 11:13 92 07/22/17 11:13 98.6 92 20 112/70 (84) 94 07/22/17 11:12 94 Nasal Cannula 30.00 60 07/22/17 07:52 95 High Flow Nasal Cannula 30.00 50 07/22/17 07:49 97.6 92 20 116/72 (87) 91 07/22/17 07:48 91 Nasal Cannula 30.00 60 07/22/17 07:48 92 07/22/17 05:22 93 High Flow Nasal Cannula 30.00 60 07/22/17 04:40 99 40 07/22/17 03:14 99 Bi-Pap 50 07/22/17 03:00 90 07/22/17 03:00 97.6 89 16 112/73 (86) 98 07/22/17 00:34 98 Bi-Pap 50 07/22/17 00:20 97 50 07/21/17 23:00 92 Nasal Cannula 30.00 60 07/21/17 23:00 98 07/21/17 23:00 97.8 98 16 101/60 (74) 91 07/21/17 20:04 96 High Flow Nasal Cannula 35.00 60 07/21/17 19:00 91 Nasal Cannula 30.00 60 07/21/17 19:00 89 07/21/17 19:00 97.9 89 16 128/77 (94) 91 I/O 07/21/17 07/21/17 07/21/17 07/22/17 07/22/17 07/22/17 07:00 15:00 23:00 07:00 15:00 23:00 Intake Total 420 ml 650 ml 480 ml 1100 ml Output Total 800 ml 1000 ml 1300 ml 1600 ml Balance -380 ml -350 ml -820 ml -500 ml Intake Oral 420 ml 550 ml 480 ml 1000 ml IV Total 100 ml 100 ml Output Urine Total 800 ml 1000 ml 1300 ml 1600 ml # Voids 3 4 # Bowel Movements 1 2 1 Result Diagram: 07/22/1751607/22/17516 Objective Remarks GENERAL: Thinly built elderly lady who is pale and mildly dyspneic at rest. HEENT: Head normocephalic. Pupils reactive and equal. Tongue is dry. Throat is clear. Nasal mucosa is clear. NECK: Supple without venous distension. No thyromegaly or lymphadenopathy. CHEST: Distant breath sounds with occ crackles at the lower chest with wheezes bilaterally. CARDIAC: Heart sounds irregular S1, S2 with no murmur or rub. ABDOMEN: Soft, scaphoid. No masses, no organomegaly or tenderness. EXTREMITIES:No varicosities, minimal edema. NEUROLOGIC: Reflexes are normal. There were no gross motor deficits. Cranial nerves are grossly intact. RECTAL: Exam is deferred. SKIN: Cool and dry. Assessment and Plan Assessment and Plan IMPRESSION 1. Basilar pneumonia with hypoxemia. 2. Rule out pulmonary embolism. 3. COPD with emphysema and chronic bronchitis 4. Status post pericardial window placement for pericardial effusion. 5. History of nicotine dependency. 6. Dehydration resolved 7. Metastatic [place] CA. Plan : 1. Lovenox 1 mg /Kg BID 2. O2 3 L N/C 3. BiPAP at HS PRN , 11 pm to 5 am 12/5 cm . 4. Nebs qid , duoneb. 5. Cont Lasix 20 mg po daily. 6. Continue Levaquin 500 gm daily. 7. CBC,BMP in am 8. Solumedrol 40 mg IV q12h 9. PFT when out of ICU 10 Oncology Evaluation Renny Cox MD Jul 22, 2017 18:23
--- NOTE | 2017-07-22 18:33 | PD.ONC.PN ---
Subjective Subjective Remarks "My was waiting for you" Objective Data Date Time Temp Pulse Resp B/P (MAP) Pulse Ox O2 Delivery O2 Flow Rate FiO2 07/22/17 16:44 90 Nasal Cannula 3.00 07/22/17 15:11 94 Nasal Cannula 4.00 07/22/17 15:11 96 07/22/17 15:10 97.7 96 20 108/67 (81) 94 07/22/17 11:13 92 07/22/17 11:13 98.6 92 20 112/70 (84) 94 07/22/17 11:12 94 Nasal Cannula 30.00 60 07/22/17 07:52 95 High Flow Nasal Cannula 30.00 50 07/22/17 07:49 97.6 92 20 116/72 (87) 91 07/22/17 07:48 91 Nasal Cannula 30.00 60 07/22/17 07:48 92 07/22/17 05:22 93 High Flow Nasal Cannula 30.00 60 07/22/17 04:40 99 40 07/22/17 03:14 99 Bi-Pap 50 07/22/17 03:00 90 07/22/17 03:00 97.6 89 16 112/73 (86) 98 07/22/17 00:34 98 Bi-Pap 50 07/22/17 00:20 97 50 07/21/17 23:00 92 Nasal Cannula 30.00 60 07/21/17 23:00 98 07/21/17 23:00 97.8 98 16 101/60 (74) 91 07/21/17 20:04 96 High Flow Nasal Cannula 35.00 60 07/21/17 19:00 91 Nasal Cannula 30.00 60 07/21/17 19:00 89 07/21/17 19:00 97.9 89 16 128/77 (94) 91 07/22/17 07/22/17 07/22/17 07:00 15:00 23:00 Intake Total 480 ml 1100 ml Output Total 1300 ml 1600 ml Balance -820 ml -500 ml Result Diagram: 07/22/1751607/22/17516 Laboratory Results Laboratory Tests Test 07/22/17 05:17 07/22/17 10:50 White Blood Count 20.0 TH/MM3 Red Blood Count 3.38 MIL/MM3 Hemoglobin 9.8 GM/DL Hematocrit 30.1 % Mean Corpuscular Volume 89.1 FL Mean Corpuscular Hemoglobin 29.0 PG Mean Corpuscular Hemoglobin Concent 32.5 % Red Cell Distribution Width 14.8 % Platelet Count 153 TH/MM3 Mean Platelet Volume 10.0 FL Reticulocyte Count 3.1 % Absolute Reticulocyte Count 103.3 MIL/L Blood Urea Nitrogen 25 MG/DL Creatinine 0.62 MG/DL Random Glucose 128 MG/DL Total Protein 5.9 GM/DL Albumin 2.1 GM/DL Calcium Level 8.3 MG/DL Phosphorus Level 2.6 MG/DL Magnesium Level 2.3 MG/DL Alkaline Phosphatase 137 U/L Aspartate Amino Transf (AST/SGOT) 188 U/L Alanine Aminotransferase (ALT/SGPT) 259 U/L Lactate Dehydrogenase 607 U/L Total Bilirubin 0.9 MG/DL Direct Bilirubin 0.3 MG/DL Sodium Level 137 MEQ/L Potassium Level 3.6 MEQ/L Chloride Level 99 MEQ/L Carbon Dioxide Level 29.7 MEQ/L Anion Gap 8 MEQ/L Estimat Glomerular Filtration Rate 93 ML/MIN Indirect Bilirubin 0.6 MG/DL Hepatitis A IgM Antibody NEGATIVE Hepatitis B Surface Antigen NEGATIVE Hepatitis B Core IgM Antibody NEGATIVE Hepatitis C Antibody NEGATIVE Imaging Studies Last 24 hours Impressions Chest X-Ray 07/22/17 0600 Signed Impressions: Service Date/Time: June 04:57 - CONCLUSION: Minimal improvement in the aeration of lungs.. K. Ranjan Vo MD Administered Medications Medications (Trade) Dose Ordered Sig/Marcela Route PRN Reason Start Time Stop Time Status Last Admin Dose Admin Senna/Docusate Sodium (Lorin-Colace) 1 tab BID PO 07/16/17 21:00 07/21/17 09:18 Sodium Chloride (NS Flush) 2 ml BID IV FLUSH 07/16/17 21:00 07/22/17 09:01 Aspirin (Aspirin Chew) 81 mg DAILY PO 07/17/17 09:00 07/22/17 09:01 Pantoprazole Sodium (Protonix) 40 mg DAILY@06 PO 07/17/17 06:00 07/22/17 05:24 Oxycodone/ Acetaminophen (Percocet 5-325 Mg) 1 tab Q3H PRN PO PAIN SCALE 6 TO 10 07/16/17 17:00 07/18/17 15:40 Multivitamins/ Minerals Therapeutic (Theragran M Tab) 1 tab DAILY PO 07/18/17 09:00 07/22/17 09:02 Magnesium Hydroxide (Milk Of Cesar Liq) 30 ml DAILY PO 07/18/17 09:00 07/19/17 08:20 Polyethylene Glycol (Miralax) 17 gm DAILY PO 07/18/17 09:00 07/19/17 08:23 Alprazolam (Xanax) 0.25 mg BID PRN PO ANXIETY 07/17/17 09:45 07/17/17 21:00 Gabapentin (Neurontin) 800 mg QID PO 07/17/17 13:00 07/22/17 13:14 Potassium Chloride (KCl) 30 meq Q12HR PO 07/17/17 10:00 07/22/17 09:02 Montelukast Sodium (Singulair) 10 mg HS PO 07/19/17 21:00 07/21/17 22:16 Methylprednisolone Sodium Succinate (SoluMEDROL INJ) 40 mg Q8HR IV PUSH 07/20/17 22:00 07/22/17 14:00 Budesonide/ Formoterol Fumarate (Symbicort 160-4.5 Mcg Inh) 2 puff Q12HR INH 07/20/17 21:00 07/21/17 21:00 Levofloxacin/ Dextrose 100 ml @ 100 mls/hr Q24H IV 07/20/17 16:00 07/22/17 16:05 Albuterol/ Ipratropium (Duoneb Neb) 1 ampule Q6HR WHILE AWAKE NEB NEB 07/20/17 20:00 07/22/17 13:22 Enoxaparin Sodium (Lovenox Inj) 60 mg Q12H SQ 07/20/17 21:00 07/22/17 09:00 Budesonide (Pulmicort Respule Neb) 0.5 mg Q12HR NEB PRN NEB if unable to use symbicort 07/21/17 20:00 07/22/17 08:16 Furosemide (Lasix Inj) 20 mg BID@0900,1800 IV PUSH 07/22/17 09:00 07/22/17 09:00 Objective Remarks GENERAL: slender woman, well-developed patient. SKIN: Warm and dry. Oxygen flow less, looks better/stronger. HEAD: Normocephalic. EYES: No scleral icterus. No injection or drainage. NECK: Supple, trachea midline. No JVD or lymphadenopathy. LYMPHATIC: No adenopathy. CARDIOVASCULAR: Regular rate and rhythm without murmurs. RESPIRATORY: Breath sounds equal bilaterally, decrease at bases. GASTROINTESTINAL: Abdomen soft, non-tender, nondistended- healed scar and dry dressing. EXTREMITIES: No cyanosis, or edema. MUSCULOSKELETAL: Adequate muscle tone. NEUROLOGICAL: No obvious focal deficit. Awake, alert, and oriented x3. PSYCHIATRIC: Appropriate mood and affect; insight and judgment normal. Assessment/Plan Problem List: (1) Non-small cell lung cancer (NSCLC) ICD Codes: C34.90 - Malignant neoplasm of unspecified part of unspecified bronchus or lung Plan: Presenting with malignant pericardial effusion, tamponade and syncope. Pericardial biopsy c/w NSCLCA adenocarcinoma histology. Requested EGFR, ALK and PDL1 Discussed in general terms tx of lung cancer with systemic cytotoxic chemotherapy and second line immunotherapy. Pt given copy of pathology. (2) Pulmonary emboli ICD Codes: I26.99 - Other pulmonary embolism without acute cor pulmonale Plan: Cont LMWH bridge to therapeutic INR. Recommend Coumadin for during hospitalization, other options of anticoagulation when more stable. No bleeding noted. Follow hgb and symptoms. Assessment 77 y/o woman present with syncope and tamponade from malignant pericardial effusion secondary to metastatic NSCLCA, adenocarcinoma. Plan 1. Call per pt's request 2. Cont current care. 3. Bridge to therapeutic INR 4. Follow up as out pt to consider systemic therapy. Dayna Smith MD Jul 22, 2017 18:33
[2017-07-22] MEDS: MONTELUKAST SODIUM 10 MG TAB PO SCH (21:17)
[2017-07-22] MEDS: ALPRAZolam 0.25 MG TAB PO PRN (21:18)
[2017-07-22] MEDS: traMADol HCL 50 MG TAB PO PRN (21:33)
[2017-07-23] VITALS (22 sets, daily range): BP systolic 103–110; BP diastolic 50–76; PULSE 72–94; RESP 16–20; TEMP 97.6–98.2; O2SAT 93–100
[2017-07-23 04:12] LABS: AUTOMATED NEUTROPHIL # 14.4 TH/MM3 (1.8-7.7); BASOPHIL % 0.1 % (0.0-2.0); HEMOGLOBIN 10.2 GM/DL (11.6-15.3); LYMPHOCYTE # 0.3 TH/MM3 (1.0-4.8); MEAN CELL VOLUME 88.5 FL (80.0-100.0); MEAN CORPUSCULAR HEMOGLOBIN 29.1 PG (27.0-34.0); MEAN CORPUSCULAR HGB CONC 32.9 % (32.0-36.0); MEAN PLATELET VOLUME 9.8 FL (7.0-11.0); MONOCYTE # 0.6 TH/MM3 (0-0.9); NEUT % 93.9 % (16.0-70.0); PLATELET COUNT 199 TH/MM3 (150-450); RED CELL DISTRIBUTION WIDTH 15.2 % (11.6-17.2); WHITE BLOOD COUNT 15.3 TH/MM3 (4.0-11.0)
[2017-07-23 04:44] LABS: ALBUMIN 2.1 GM/DL (3.4-5.0); BICARBONATE 31.3 MEQ/L (21.0-32.0); CALCIUM 8.5 MG/DL (8.5-10.1); CREATININE 0.66 MG/DL (0.50-1.00); DIRECT BILIRUBIN ADULT 0.3 MG/DL (0.0-0.2); MAGNESIUM 2.4 MG/DL (1.5-2.5)
[2017-07-23 04:46] LABS: INDIRECT BILIRUBIN 0.4 MG/DL (0.0-0.8); TOTAL BILIRUBIN ADULT 0.7 MG/DL (0.2-1.0); TOTAL PROTEIN 5.7 GM/DL (6.4-8.2)
--- NOTE | 2017-07-23 05:54 | RADRPT ---
EXAM DATE/TIME: 07/23/2017 04:59 [facility] COMPARISON: CHEST SINGLE AP, July 22, 2017, 4:57. INDICATIONS : Evaluate for pneumonia MEDICAL HISTORY : Chronic obstructive pulmonary disease. SURGICAL HISTORY : Hysterectomy. ENCOUNTER: Subsequent ACUITY: 1 week PAIN SCORE: 8/10 LOCATION: Bilateral chest FINDINGS: Single AP view of the chest. Diffuse bilateral interstitial opacity is again seen. Inferior right low er lobe pulmonary consolidation more confluent opacity at the inferior aspect of the right lower lobe is unchanged. No evidence of pleural effusion or pneumothorax. CONCLUSION: No significant change with diffuse interstitial opacity and focal lateral right lower lobe consolidat ion versus atelectasis. Chet Park MD on July 23, 2017 at 5:52 Board Certified Radiologist. This report was verified electronically.
[2017-07-23] MEDS: methylPREDNISolone SOD SUCC 40 MG/1 ML VIAL IV PUSH SCH ×2 (06:00→14:06)
[2017-07-23] MEDS: PANTOPRAZOLE SOD 40 MG DELAYED RELEASE TAB PO SCH (06:00)
[2017-07-23] MEDS: RESP: ALBUTEROL 2.5 MG/IPRATROPIUM 0.5 MG NEB (SCH) NEB ×3 (07:24→20:18)
--- NOTE | 2017-07-23 07:42 | HHI.CCPN ---
Subjective Remarks/Hospital Course This is a 77-year-old female that presented from PCP office via ambulance due to hypoxia and shortness of breath. She was seen at [facility] diagnosed with pneumonia and discharged with a prescription for azithromycin, at that time her BP in P was within normal limits, and troponin was notably less than 0.02, and influenza antigen negative. Last evening it was reported by her in the middle of the night the patient went to the bathroom and fell question unknown if there was any LOC, her daughter picked her up and put her back to bed . This a.m., she was transported by family for follow-up with her PCP today as directed, but while in the office, she passed out. Per EMS, she was cyanotic in the doctor's office. Her only complaint is of weakness and difficulty breathing. She denied any chest pain or abdominal pain. Upon admission to the ED today the patient was noted to have an elevated lactate level, mild leukocytosis with a metabolic acidosis. The patient was noted to be hypotensive systolic blood pressure in the 70s, venous ABG was drawn her SVO2 was notably 58. The patient was bolused with 2 L IV fluid, and received azithromycin 500 mg, vancomycin 1 g, and cefepime 2 g. a central line was placed and the patient was initiated on norepinephrine infusion .The patient is was notably audibly wheezing initially on nonrebreather received 2 DuoNeb treatments and subsequently had been weaned down to nasal cannula 3 L with O2 saturation greater than 92%. A D-dimer was ordered. The patient upon presentation to the ED to be lethargic, easily arousable and answering questions appropriately. Upon entering the ED, the patient was lethargic but arousable answering my questions, blood pressure was 159/over 70s on norepinephrine at 2 mcgs/minute. Imaging studies CT brain, and chest are still pending. Critical care medicine was consulted. 07/17: Upon admission to CVICU on 07/16. The patient was noted to have increasing chest pain increasing difficulty breathing. Inability to obtain blood pressure by Dinamap , and 12-lead EKG had been obtained showing low voltage in all leads. An art line was placed, and a stat echo was performed showing a large pericardial effusion/cardiac tamponade. The patient was emergently transported to [facility], 900 cc fluid removed and mediastinal chest tube placed. No fluid labs sent for cytology, immunology, and ruling out an infectious process. WBC count of pleural fluid was noted to be significantly elevated. Pain patient continues on antibiotics, ID consulted appreciate recommendations. Throughout the night the patient maintained hemodynamic stability currently on phenylephrine 50 mcgs/minute. This a.m. the patient is alert and oriented, CPAP trials underway with anticipation for extubation. The patient continues to be coagulopathic, INR 1.6 this a.m. with no active signs of bleeding, and minimal chest tube output. FFP and cryoprecipitate ordered. Plan for CT of the abdomen and pelvis post extubation. Lactic acid noted to be downtrending. 07/21: Currently high flow nasal cannula 30 L per minute/70% FiO2 and commode. Eyes pain. Intermittent paresthesias bilateral lower extremity/chronic due to history transverse myelitis. A.m. laboratories pending. 07/22: Afebrile. Tolerated BiPAP overnight intermittently. Currently high flow nasal cannula at 50%. [address]. Plan CT abdomen/pelvis today. Appreciate oncology's input. We'll consult Gastroenterology for elevated LFTs and lipase. Subjective: 07/23: Currently in 4 L nasal cannula. Required BiPAP overnight and tolerated well. One bowel movement. -1100 cc with furosemide diuresis. Diagnosis of non- small cell lung carcinoma discussed with patient. Objective Vital Signs Date Time Temp Pulse Resp B/P (MAP) Pulse Ox O2 Delivery O2 Flow Rate FiO2 07/23/17 04:14 95 40 07/23/17 03:00 98.2 84 16 106/70 (82) 07/23/17 03:00 Bi-Pap 07/22/17 23:00 4.00 Intake and Output 07/23/17 07/23/17 07/24/17 08:00 16:00 00:00 Intake Total 400 ml Output Total 600 ml Balance -200 ml Result Diagram: 07/23/17 0400 07/23/17 0400 Other Results Microbiology Date/Time Source Procedure Growth Status 07/16/17 09:22 Blood Peripheral Aerobic Blood Culture - Final NO GROWTH IN 5 DAYS Complete 07/16/17 09:22 Blood Peripheral Anaerobic Blood Culture - Final NO GROWTH IN 5 DAYS Complete 07/16/17 23:15 Fluid Pericardial Fluid Fungal Smear - Final NO FUNGAL ELEMENTS SEEN. Resulted 07/16/17 23:15 Fluid Pericardial Fluid Fungal Culture Pending Resulted 07/17/17 01:15 Sputum Expectorated Sputum Gram Stain - Final Complete 07/17/17 01:15 Sputum Expectorated Sputum Sputum Culture - Final LIGHT GROWTH NORMAL RESPIRATORY CASEY Complete 07/16/17 11:45 Urine Catheterized Urine Legionella Antigen - Final PRESUMPTIVE NEGATIVE FOR LEGIONELLA P... Complete 07/16/17 11:45 Urine Catheterized Urine Streptococcus pneumoniae Antigen (M - Final PRESUMPTIVE NEGATIVE FOR STREPTOCOCCU... Complete Imaging Last Impressions Chest X-Ray 07/22/17 0600 Signed Impressions: Service Date/Time: June 04:57 - CONCLUSION: Minimal improvement in the aeration of lungs.. K. Ranjan Vo MD Lower Extremity Ultrasound 07/21/17 0000 Signed Impressions: Service Date/Time: Friday, July 21, 2017 10:02 - CONCLUSION: Negative exam with no evidence of deep venous thrombosis. Narendra Maguire MD Gall Bladder Ultrasound 07/21/17 0000 Signed Impressions: Service Date/Time: Friday, July 21, 2017 15:43 - CONCLUSION: Unremarkable right upper quadrant ultrasound Arun Tanner MD CT Angiography 07/20/17 0000 Signed Impressions: Service Date/Time: Thursday, July 20, 2017 16:49 - CONCLUSION: 1. Bibasilar subsegmental and segmental pulmonary emboli. 2. Extensive interstitial and alveolar infiltration throughout the lungs characteristic of pulmonary edema and possible superimposed pneumonitis. 3. Right hilar and subcarinal lymphadenopathy. 4. Significant right-sided heart dilatation Aftab Snyder MD Objective Remarks GENERAL: 77-year-old female, critically ill currently on nasal cannula in no acute distress SKIN: Warm and dry. Well perfused HEAD: Atraumatic. Normocephalic. EYES: Pupils equal and round and 3 mm reactive. No scleral icterus. No injection or drainage. ENT: No nasal bleeding or discharge. Mucous membranes pink and moist. NECK: Trachea midline. No JVD. CARDIOVASCULAR: Tachycardic, RR..S1, S2, no S4. No rub appreciated. Subxiphoid incision is clean dry and intact without erythema RESPIRATORY: Improving fine crackles appreciated bilaterally through anterior and posterior lung watkins. Currently without an expiratory wheeze GASTROINTESTINAL: Abdomen soft, non-tender, nondistended. Active bowel sounds are appreciated MUSCULOSKELETAL: Extremities without significant peripheral edema. No obvious deformities. NEUROLOGICAL: Cranial nerves II through XII grossly intact. Strength is equal symmetric. Has chronic paresthesias bilateral lower extremities but sensation currently intact. Procedures 07/16-pericardial window Urinary Catheter: No Assessment to: Continue Date of Insertion: Jul 16, 2017 Vascular Central Line Catheter: No Assessment to: Continue Date of Insertion: Jul 16, 2017 A/P Assessment and Plan Neuro/Psych History of transverse myelitis Chronic benzodiazepine use Pars defect L5 Acetaminophen 650 mg every 6 hours when necessary fever/pain 1-5 Oxycodone/acetaminophen 5/25 one tablet every 6 hours when necessary pain 6-10 Currently on Neurontin 800 mg by mouth 4 times a day/home medication Continue alprazolam 0.25 mg by mouth twice a day when necessary Currently on tramadol 100 mg by mouth every 8 hours when necessary breakthrough pain Respiratory: Acute hypoxemic respiratory failure secondary to bilateral pulmonary embolism/ community-acquired pneumonia/COPD exacerbation COPD CTPA 07/20 - bilateral subsegmental and segmental pulmonary embolism, extensive interstitial and alveolar infiltration throughout the lungs. Trace of pulmonary edema/groundglass opacity, right hilar and subcarinal lymphadenopathy and significant right-sided right heart dilatation Nasal cannula currently at 4 L to maintain saturations greater than or equal to 88% As needed BiPAP A cappella every 6 hours with nebulizer treatment Incentive spirometry while awake Budesonide/formoterol 160/4.5 2 puffs twice a day - budesonide 0.5/21 admission twice a day if unable to do Symbicort Albuterol/ipratropium aerosols every 6 hours while awake with albuterol aerosols every 2 hours as needed for dyspnea Methylprednisolone 40 mill grams IV every 8 hours Montelukast 10 mg by mouth daily Followed by Dr. Cox - pulmonology Tobacco cessation self education booklet provided. Currently doesn't wish to have nicotine patch at the present time. Cardiovascular: History of arrhythmia (irregular rhythm) Cardiac Tamponade -resolved Malignant hemorrhagic Pericardial effusion S/P Pericardial window 07/[address] Huber - -900 cc hemorrhagic fluid - 32 Togolese mediastinal tube removed 07/19 Elevated troponin Lactic acidosis - resolved Continue on aspirin 81 mg daily Diuresing with furosemide 20 mill grams IV twice a day with KCl 10 mEq twice a day supplementation 2-D echo 07/16 - The left ventricular systolic function is normal with an estimated ejection fraction in the range of 60-65%. Normal left ventricular size. Wall thickness is normal. No regional wall motion abnormalities are present. Aortic valve sclerosis is present. There is trace tricuspid valve regurgitation. The estimated pulmonary arterial pressure is 24 mmHg. There is large pericardial effusion present. Echocardiographic features were consistent with hemodynamically significant pericardial effusion and tamponade physiology. 2-D echo 07/21 - Normal left ventricular size and wall thickness. The left ventricular systolic function is normal with an estimated ejection fraction in the range of 60-65%. Normal left ventricular wall motion. The right ventricle is moderately dilated. The right ventricular systoilc function is mildly decreased. The right atrial size is moderately dilated. The left atrial size is normal. Mild mitral valve regurgitation. There is moderate tricuspid regurgitation. The estimated pulmonary systolic pressure is 42 mmHg. Pericardial fluid - Exudative by criteria. Hemorrhagic. 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 5 mm hepatic cyst in the left lobe. Scattered interstitial infiltrates and parenchymal infiltrates in both lung bases. Diffuse primary degenerative changes, disc degeneration and disc space narrowing throughout the lumbar spine. Hepatitis panel ordered Gallbladder ultrasound negative. Patient's gallbladder has been removed. No signs of ductal stone/sludge Gastro enterology consulted Heme/ID: Leukocytosis Normocytic anemia Elevated INR Low fibrinogen Elevated CA 125 Malignant cells/adenocarcinoma pericardial fluid NSCLCA Monitor CBC Received the vitamin K 2.5 mg 1 per oncology Hematology consultation with bilateral pulmonary embolism and hemorrhagic malignant pericardial effusion Currently on enoxaparin 60 mg subcutaneous twice a day for pulmonary embolism - transition to warfarin per Dr. Smith request Pending antiphospholipid antibodies. Numerous tumor markers negative except CA 125 CT abdomen/pelvis results as above in GI section Infectious disease following. Currently on levofloxacin 500 mg IV daily Pertinent cultures 07/16 - blood cultures 2 - no growth 07/16 - UA -no growth 07/16 - pericardial fluid - no growth 07/17 - sputum - no growth Endocrine: Hyperglycemia of critical illness Elevated TSH 5.6 Sliding-scale insulin to maintain euglycemia Low T3. Normal T4. Recommend recheck TSH 4-6 weeks after critical illness resolved Prophylaxis: GI Prophylaxis Pantoprazole daily DVT Prophylaxis -- SCDs/enoxaparin 60 mg subcutaneous twice a day - okay to start warfarin. Pharmacy will be consulted Lines: Peripheral IVs 2. Level II follow-up. State patient is stable from a critical care medicine standpoint. Okay to transfer to see CPCU with BiPAP at night Quan Stewart MD Jul 23, 2017 07:42
[2017-07-23] MEDS: MAGNESIUM HYDROXIDE SUSP 30 ML CUP PO SCH (09:00)
[2017-07-23] MEDS: DOCUSATE SODIUM 50 MG/SENNA 8.6 MG TAB PO SCH ×2 (09:00→20:12)
[2017-07-23] MEDS: SODIUM CHLORIDE 0.9% FLUSH 10 ML FLUSH IV FLUSH SCH ×2 (09:00→20:12)
[2017-07-23] MEDS: POLYETHYLENE GLYCOL 17 GM PKG PO SCH (09:00)
[2017-07-23] MEDS: ENOXAPARIN SODIUM 60 MG/0.6 ML SYRINGE SQ SCH ×2 (09:17→20:11)
[2017-07-23] MEDS: BUDESONIDE-FORMOTEROL 160/4.5 MCG INHALER INH SCH ×2 (09:17→20:12)
[2017-07-23] MEDS: POTASSIUM CHLORIDE 10 MEQ CONTROLLED RELEASE TAB PO SCH ×2 (09:18→20:12)
[2017-07-23] MEDS: GABAPENTIN 400 MG CAP PO SCH ×4 (09:18→20:11)
[2017-07-23] MEDS: FUROSEMIDE 20 MG/2 ML VIAL IV PUSH SCH (09:18)
[2017-07-23] MEDS: MULTIVITAMINS/MINERALS THERAPEUTIC TAB PO SCH (09:18)
[2017-07-23] MEDS: ASPIRIN 81 MG CHEW TAB PO SCH (09:19)
--- NOTE | 2017-07-23 11:21 | MB ---
cc: ERICKVENUS DATE OF CONSULTATION 07/23/2017 DATE OF 1940 ENDOSCOPIST Venus Troncoso MD PRIMARY INSIDE POLISHER Quan Alvarado MD PRIMARY CARE PHYSICIAN Hima Marion MD REASON FOR CONSULTATION Elevated LFTs. HISTORY OF PRESENT ILLNESS This is due to this is a very pleasant 77-year-old female who was in her usual state of health until recently. She is having issues with hypoxemia, shortness of breath and due to that she was advised to come to the emergency room. She was initially seen in the emergency room and was diagnosed with a pneumonia, given antibiotics and was discharged home. She apparently had worsening of her symptoms and eventually had to return back to the hospital for further workup and evaluation. During that visit, she was noted to have significant difficulty breathing and weakness and evidence of sepsis and therefore she was appropriately treated. During that time, she was noted to have increased chest pain, hypotensive shock, underwent further evaluation and was found to have a large pericardial effusion with cardiac tamponade and therefore she underwent an emergent pericardial window and drainage of 900 cc of fluid. During that time, the effluent was noted to be malignant appearing and re-biopsy of the pericardium was significant for non-small cell carcinoma from the lung. She was subsequently stabilized over the next several days. She was treated appropriately. Further workup which included LFTs showed elevated transaminases and GI was consulted for further workup and evaluation. She underwent an CT scan of the abdomen and pelvis which was negative for any acute disease. Several subcentimeter hepatic cysts were noted with evidence of cholecystectomy. Ultrasound of the gallbladder was also performed showing a normal common bile duct of 6 mm and otherwise unremarkable ultrasound was noted. PAST MEDICAL HISTORY 1. Atrial fibrillation 2. Peripheral neuropathy 3. History of arthritis PAST SURGICAL HISTORY 1. Appendectomy 2. Cataracts 3. Total hysterectomy 4. Tonsillectomy 5. Recent pericardial window ALLERGIES NO KNOWN DRUG ALLERGIES. MEDICATIONS Home medications, please see MAR for a complete accurate list. FAMILY HISTORY Father with history of colon cancer in the 70s. REVIEW OF SYSTEMS A 12-point review of systems was obtained and was negative or noncontributory other than as mentioned in the HPI. PHYSICAL EXAMINATION VITAL SIGNS: Temperature 97.9, 76, 105/67, 98% on three liters. GENERAL: Alert and oriented, no focal deficits. No acute distress. HEAD, EYES, EARS, NOSE, AND THROAT: Pupils equal, round, reactive to light. NECK: Supple, nontender. No carotid bruits. No JVD. No thyromegaly. CARDIOVASCULAR: Irregular rhythm. Normal rate. RESPIRATORY: Clear to auscultation, decreased breath sound bilaterally. No wheezing heard. ABDOMEN: Soft, nontender, nondistended. Bowel sound present. No hepatomegaly appreciated. GENITOURINARY: No CVA angle tenderness noted. MUSCULOSKELETAL: Weakness, but overall normal strength upper and lower extremities. NEUROLOGIC: Alert and oriented. No focal deficits. PSYCHIATRIC: Cooperative, appropriate mood and affect. LABORATORY DATA WBC 15.3, hemoglobin 10.2, platelets 199. Sodium 140, potassium 4.2, chloride 102, bicarb 31, total bili 0.7, AST 85, ALT 225, alk phos 128, amylase 50, lipase 234, INR 1.2. Hepatitis A, B and C negative. IMPRESSION Mildly elevated transaminases overall downward trending, etiology may be secondary to hypotensive shock versus sepsis less likely intrinsic liver disease, likely infiltrated liver disease or biliary causes. A recent new diagnosis of [id number] lung carcinoma with a malignant pericardial effusion. Leukocytosis with the patient on appropriate treatment. Normocytic normochromic anemia may be secondary to chronic disease. No acute signs symptoms of GI bleeding, although he did have a malignant bloody pericardial effusion. RECOMMENDATIONS 1. Continue to monitor LFTs periodically. 2. I anticipate as sepsis improves and blood pressure stabilizes, I will anticipate her liver numbers to continue to improve over the next several days. Given the normal ultrasound and the CT scan, I do not believe any urgent biliary workup is necessary at this time. If symptoms do not improve or if LFTs do not improve or the worsen over time, then no may consider undergoing a liver biopsy, but I do not think it is necessary at this point. 3. We will wait several antibodies that been ordered, but are still pending. Thank you for allowing me to participate in the care of the patient. We will follow along with you and make recommendation as per the patient's clinic course. MD HERNANDEZ Christensen/JOE /10:28 AM /10:47 AM
--- NOTE | 2017-07-23 12:16 | PD.ONC.PN ---
Subjective Subjective Remarks Afebrile overnight. Patient resting in room with daughter and at bedside. She states her breathing is improved, but she still has a difficult time taking a deep breath. Tolerating Lovenox injections. Objective Data Date Time Temp Pulse Resp B/P (MAP) Pulse Ox O2 Delivery O2 Flow Rate FiO2 07/23/17 11:02 95 Nasal Cannula 3.00 07/23/17 11:00 91 07/23/17 11:00 98.1 91 16 110/76 (87) 96 07/23/17 11:00 96 Nasal Cannula 3.00 07/23/17 07:00 97.9 76 16 105/67 (80) 95 07/23/17 07:00 95 Nasal Cannula 3.00 07/23/17 07:00 76 07/23/17 04:14 95 40 07/23/17 03:00 98.2 84 16 106/70 (82) 93 07/23/17 03:00 82 07/23/17 03:00 93 Bi-Pap 40 07/22/17 23:00 98.5 94 18 102/63 (76) 94 07/22/17 23:00 94 Nasal Cannula 4.00 07/22/17 23:00 96 07/22/17 22:45 20 07/22/17 20:12 93 Nasal Cannula 3.00 07/22/17 19:00 92 07/22/17 19:00 98.1 88 18 100/58 (72) 94 07/22/17 19:00 94 Nasal Cannula 4.00 07/22/17 16:44 90 Nasal Cannula 3.00 07/22/17 15:11 94 Nasal Cannula 4.00 07/22/17 15:11 96 07/22/17 15:10 97.7 96 20 108/67 (81) 94 07/23/17 07/23/17 07/23/17 07:00 15:00 23:00 Intake Total 400 ml Output Total 600 ml Balance -200 ml Result Diagram: 07/23/1739907/23/17399 Laboratory Results Laboratory Tests Test 07/23/17 04:00 White Blood Count 15.3 TH/MM3 Red Blood Count 3.50 MIL/MM3 Hemoglobin 10.2 GM/DL Hematocrit 31.0 % Mean Corpuscular Volume 88.5 FL Mean Corpuscular Hemoglobin 29.1 PG Mean Corpuscular Hemoglobin Concent 32.9 % Red Cell Distribution Width 15.2 % Platelet Count 199 TH/MM3 Mean Platelet Volume 9.8 FL Neutrophils (%) (Auto) 93.9 % Lymphocytes (%) (Auto) 2.0 % Monocytes (%) (Auto) 4.0 % Eosinophils (%) (Auto) 0.0 % Basophils (%) (Auto) 0.1 % Neutrophils # (Auto) 14.4 TH/MM3 Lymphocytes # (Auto) 0.3 TH/MM3 Monocytes # (Auto) 0.6 TH/MM3 Eosinophils # (Auto) 0.0 TH/MM3 Basophils # (Auto) 0.0 TH/MM3 CBC Comment DIFF FINAL Differential Comment Blood Urea Nitrogen 26 MG/DL Creatinine 0.66 MG/DL Random Glucose 141 MG/DL Total Protein 5.7 GM/DL Albumin 2.1 GM/DL Calcium Level 8.5 MG/DL Phosphorus Level 3.0 MG/DL Magnesium Level 2.4 MG/DL Alkaline Phosphatase 128 U/L Aspartate Amino Transf (AST/SGOT) 85 U/L Alanine Aminotransferase (ALT/SGPT) 225 U/L Total Bilirubin 0.7 MG/DL Direct Bilirubin 0.3 MG/DL Sodium Level 140 MEQ/L Potassium Level 4.2 MEQ/L Chloride Level 102 MEQ/L Carbon Dioxide Level 31.3 MEQ/L Anion Gap 7 MEQ/L Estimat Glomerular Filtration Rate 87 ML/MIN Lactic Acid Level 1.9 mmol/L Indirect Bilirubin 0.4 MG/DL Amylase Level 50 U/L Lipase 234 U/L Imaging Studies Last 24 hours Impressions Chest X-Ray 07/23/17 0600 Signed Impressions: Service Date/Time: Sunday, July 23, 2017 04:59 - CONCLUSION: No significant change with diffuse interstitial opacity and focal lateral right lower lobe consolidation versus atelectasis. Chet Park MD Administered Medications Medications (Trade) Dose Ordered Sig/Marcela Route PRN Reason Start Time Stop Time Status Last Admin Dose Admin Senna/Docusate Sodium (Lorin-Colace) 1 tab BID PO 07/16/17 21:00 07/21/17 09:18 Sodium Chloride (NS Flush) 2 ml BID IV FLUSH 07/16/17 21:00 07/23/17 09:00 Aspirin (Aspirin Chew) 81 mg DAILY PO 07/17/17 09:00 07/23/17 09:19 Pantoprazole Sodium (Protonix) 40 mg DAILY@06 PO 07/17/17 06:00 07/23/17 06:00 Oxycodone/ Acetaminophen (Percocet 5-325 Mg) 1 tab Q3H PRN PO PAIN SCALE 6 TO 10 07/16/17 17:00 07/18/17 15:40 Multivitamins/ Minerals Therapeutic (Theragran M Tab) 1 tab DAILY PO 07/18/17 09:00 07/23/17 09:18 Magnesium Hydroxide (Milk Of Magnmeet Liq) 30 ml DAILY PO 07/18/17 09:00 07/19/17 08:20 Polyethylene Glycol (Miralax) 17 gm DAILY PO 07/18/17 09:00 07/19/17 08:23 Alprazolam (Xanax) 0.25 mg BID PRN PO ANXIETY 07/17/17 09:45 07/22/17 21:18 Gabapentin (Neurontin) 800 mg QID PO 07/17/17 13:00 07/23/17 09:18 Montelukast Sodium (Singulair) 10 mg HS PO 07/19/17 21:00 07/22/17 21:17 Methylprednisolone Sodium Succinate (SoluMEDROL INJ) 40 mg Q8HR IV PUSH 07/20/17 22:00 07/23/17 06:00 Budesonide/ Formoterol Fumarate (Symbicort 160-4.5 Mcg Inh) 2 puff Q12HR INH 07/20/17 21:00 07/23/17 09:17 Levofloxacin/ Dextrose 100 ml @ 100 mls/hr Q24H IV 07/20/17 16:00 07/22/17 16:05 Albuterol/ Ipratropium (Duoneb Neb) 1 ampule Q6HR WHILE AWAKE NEB NEB 07/20/17 20:00 07/22/17 20:12 Enoxaparin Sodium (Lovenox Inj) 60 mg Q12H SQ 07/20/17 21:00 07/23/17 09:17 Albuterol Sulfate (Albuterol Neb) 2.5 mg Q2HR NEB PRN NEB dyspnea 07/21/17 09:45 07/23/17 09:14 Tramadol HCl (Ultram) 100 mg Q8H PRN PO BREAKTHROUGH PAIN 07/21/17 11:00 07/22/17 21:33 Budesonide (Pulmicort Respule Neb) 0.5 mg Q12HR NEB PRN NEB if unable to use symbicort 07/21/17 20:00 07/22/17 08:16 Furosemide (Lasix Inj) 40 mg DAILY IV PUSH 07/23/17 09:00 07/23/17 09:18 Potassium Chloride (KCl) 10 meq Q12HR PO 07/23/17 09:00 07/23/17 09:18 Objective Remarks GENERAL: Elderly female sitting up in chair next to bed in nad. SKIN: Warm and dry. HEAD: Normocephalic. EYES: No injection or drainage. NECK: Supple, trachea midline. CARDIOVASCULAR: +S1/S2 RESPIRATORY: occasional crackles. on O2 via NC GASTROINTESTINAL: Abdomen soft, non-tender, nondistended. EXTREMITIES: No cyanosis NEUROLOGICAL: No obvious focal deficit. Awake, alert, and oriented x3. Assessment/Plan Problem List: (1) Non-small cell lung cancer (NSCLC) ICD Codes: C34.90 - Malignant neoplasm of unspecified part of unspecified bronchus or lung Plan: Presenting with malignant pericardial effusion, tamponade and syncope. Pericardial biopsy c/w NSCLCA adenocarcinoma histology. Requested EGFR, ALK and PDL1 Discussed in general terms tx of lung cancer with systemic cytotoxic chemotherapy and second line immunotherapy. Pt given copy of pathology. 07/23: await EGFR, ALK, PDL1, patient does not want the cancer diagnosis discussed in front of her daughter. (2) Pulmonary emboli ICD Codes: I26.99 - Other pulmonary embolism without acute cor pulmonale Plan: --continue Lovenox, ok to start coumadin. Recommend Coumadin for during hospitalization, other options of anticoagulation when more stable. No obvious bleeding. --hgb remains stable. Assessment 77 y/o woman present with syncope and tamponade from malignant pericardial effusion secondary to metastatic NSCLCA, adenocarcinoma. Plan 1. continue Lovenox. ok to start coumadin 2. fs faxed to new patient referrals for follow up with Dr. Smith in 2 weeks. 3. monitor hgb 4. will respect patients request not to discuss cancer diagnosis in front of daughter. Attending Statement The exam, history, and the medical decision-making described in the above note were completed with the assistance of the mid-level provider. I reviewed and agree with the findings presented. I attest that I had a [id number] encounter with the patient on the same day, and personally performed and documented my assessment and findings in the medical record. Metastatic NSCLC awaiting molecular studies. Follow up with Dr. Smith requested. Diandra Rubio Jul 23, 2017 12:16 Edith Bianchi MD Jul 23, 2017 23:48
[2017-07-23 14:22] LABS: INTERNATIONAL NORMALIZED RATIO 1.1 RATIO; PROTHROMBIN TIME - PATIENT 11.6 SEC (9.8-11.6)
[2017-07-23] MEDS: traMADol HCL 50 MG TAB PO PRN ×2 (15:39→21:05)
[2017-07-23] MEDS: LEVOFLOXACIN 500 MG PREMIX INJ 100 ML IV SCH (16:37)
[2017-07-23] MEDS: WARFARIN SOD 2.5 MG TAB PO SCH (17:28)
--- NOTE | 2017-07-23 19:03 | HHI.PR ---
Subjective Remarks Better today.PE on CTA. On Lovenox.Pericardial fluid shows Path on pericardial biopsy shows Adenocarcinoma. Output was OK. Has some pulmonary edema Will need to start coumadin Objective Vital Signs Date Time Temp Pulse Resp B/P (MAP) Pulse Ox O2 Delivery O2 Flow Rate FiO2 07/23/17 18:30 82 07/23/17 18:00 84 07/23/17 17:00 80 07/23/17 16:56 20 07/23/17 16:00 94 07/23/17 15:44 97 Nasal Cannula 4.00 07/23/17 15:33 98.2 88 20 109/65 (80) 97 07/23/17 15:00 84 07/23/17 14:00 90 07/23/17 13:00 90 07/23/17 12:30 88 07/23/17 11:02 95 Nasal Cannula 3.00 07/23/17 11:00 91 07/23/17 11:00 98.1 91 16 110/76 (87) 96 07/23/17 11:00 96 Nasal Cannula 3.00 07/23/17 07:00 97.9 76 16 105/67 (80) 95 07/23/17 07:00 95 Nasal Cannula 3.00 07/23/17 07:00 76 07/23/17 04:14 95 40 07/23/17 03:00 98.2 84 16 106/70 (82) 93 07/23/17 03:00 82 07/23/17 03:00 93 Bi-Pap 40 07/22/17 23:00 98.5 94 18 102/63 (76) 94 07/22/17 23:00 94 Nasal Cannula 4.00 07/22/17 23:00 96 07/22/17 20:12 93 Nasal Cannula 3.00 I/O 07/22/17 07/22/17 07/22/17 07/23/17 07/23/17 07/23/17 07:00 15:00 23:00 07:00 15:00 23:00 Intake Total 480 ml 1100 ml 400 ml 450 ml Output Total 1300 ml 2000 ml 600 ml 300 ml Balance -820 ml -900 ml -200 ml 150 ml Intake Oral 480 ml 1000 ml 400 ml 350 ml IV Total 100 ml 100 ml Output Urine Total 1300 ml 2000 ml 600 ml 300 ml # Voids 5 1 # Bowel Movements 1 0 Result Diagram: 07/23/1739907/23/17399 Objective Remarks GENERAL: Thinly built elderly lady who is pale and not dyspneic at rest. HEENT: Head normocephalic. Pupils reactive and equal. Tongue is dry. Throat is clear. Nasal mucosa is clear. NECK: Supple without venous distension. No thyromegaly or lymphadenopathy. CHEST: Distant breath sounds with occ crackles at the lower chest with wheezes bilaterally. CARDIAC: Heart sounds irregular S1, S2 with no murmur or rub. ABDOMEN: Soft, scaphoid. No masses, no organomegaly or tenderness. EXTREMITIES:No lesions, minimal edema. NEUROLOGIC: Reflexes are normal. There were no gross motor deficits. Cranial nerves are grossly intact. RECTAL: Exam is deferred. SKIN: Cool and dry. Assessment and Plan Assessment and Plan IMPRESSION 1. Basilar pneumonia with hypoxemia. 2. Rule out pulmonary embolism. 3. COPD with emphysema and chronic bronchitis 4. Status post pericardial window placement for pericardial effusion. 5. History of nicotine dependency. 6. Dehydration resolved 7. Metastatic Adeno CA. Plan : 1. Cont Lovenox and add Coumadin 5 mg daily 2. O2 3 L N/C 3. D/C BiPAP 4. Nebs qid , duoneb. 5. Cont Lasix 20 mg po daily. 6. Continue Levaquin 500 gm daily. 7. CBC,BMP in am 8. D/C Solumedrol 9. PFT when out of ICU 10 Prednisone 20 mg daily Renny Cox MD Jul 23, 2017 19:03
[2017-07-23] MEDS: MONTELUKAST SODIUM 10 MG TAB PO SCH (20:12)
[2017-07-23] MEDS: ALPRAZolam 0.25 MG TAB PO PRN (21:05)
[2017-07-24] VITALS (28 sets, daily range): BP systolic 87–107; BP diastolic 50–67; PULSE 69–95; RESP 16–19; TEMP 97.6–98.3; O2SAT 93–98
--- NOTE | 2017-07-24 05:28 | RADRPT ---
EXAM DATE/TIME: 07/24/2017 04:21 [place] COMPARISON: CHEST SINGLE AP, July 23, 2017, 4:59. INDICATIONS : Shortness of breath, possible pulmonary disease. MEDICAL HISTORY : Chronic obstructive pulmonary disease. SURGICAL HISTORY : Hysterectomy. ENCOUNTER: Subsequent ACUITY: 1 week PAIN SCORE: 0/10 LOCATION: Bilateral chest FINDINGS: Basilar predominant but fairly diffuse bilateral parenchymal opacities persist, slightly improved in the interim. No large effusion seen. No pneumothorax. Heart size stable, upper limits of normal. CONCLUSION: Improved bilateral parenchymal consolidation. Arun Smith MD on July 24, 2017 at 5:26 Board Certified Radiologist. This report was verified electronically.
[2017-07-24] MEDS: PANTOPRAZOLE SOD 40 MG DELAYED RELEASE TAB PO SCH (05:54)
[2017-07-24 05:55] LABS: AUTOMATED NEUTROPHIL # 10.9 TH/MM3 (1.8-7.7); BASOPHIL % 0.1 % (0.0-2.0); EOSINOPHIL # 0.1 TH/MM3 (0-0.4); EOSINOPHIL % 0.5 % (0.0-4.0); HEMATOCRIT 30.2 % (35.0-46.0); HEMOGLOBIN 9.8 GM/DL (11.6-15.3); LYMPH % 6.3 % (9.0-44.0); LYMPHOCYTE # 0.8 TH/MM3 (1.0-4.8); MEAN CELL VOLUME 88.6 FL (80.0-100.0); MEAN CORPUSCULAR HEMOGLOBIN 28.9 PG (27.0-34.0); MEAN CORPUSCULAR HGB CONC 32.6 % (32.0-36.0); MEAN PLATELET VOLUME 9.5 FL (7.0-11.0); NEUT % 85.1 % (16.0-70.0); PLATELET COUNT 243 TH/MM3 (150-450); RED CELL DISTRIBUTION WIDTH 14.7 % (11.6-17.2); WHITE BLOOD COUNT 12.8 TH/MM3 (4.0-11.0)
[2017-07-24 06:02] LABS: INTERNATIONAL NORMALIZED RATIO 1.1 RATIO; PROTHROMBIN TIME - PATIENT 11.5 SEC (9.8-11.6)
[2017-07-24 06:31] LABS: ALBUMIN 2.1 GM/DL (3.4-5.0); AST (GOT) 47 U/L (15-37); BICARBONATE 29.3 MEQ/L (21.0-32.0); BLOOD UREA NITROGEN 23 MG/DL (7-18); CALCIUM 8.1 MG/DL (8.5-10.1); CHLORIDE 97 MEQ/L (98-107); GLOMERULAR FILTRATION RATE 119 ML/MIN (>89); GLUCOSE,RANDOM 86 MG/DL (74-106); MAGNESIUM 2.2 MG/DL (1.5-2.5); SODIUM (NA) 136 MEQ/L (136-145)
[2017-07-24 06:32] LABS: ALT (GPT) 174 U/L (10-53); PHOSPHORUS 2.7 MG/DL (2.5-4.9)
[2017-07-24 06:34] LABS: ALKALINE PHOSPHATASE 122 U/L (45-117); TOTAL BILIRUBIN ADULT 0.5 MG/DL (0.2-1.0); TOTAL PROTEIN 5.5 GM/DL (6.4-8.2)
--- NOTE | 2017-07-24 07:53 | HHI.PR ---
Subjective Remarks Patient seen and examined this morning. She is afebrile. Saturating 93% on 3 L. Reports she breaths comfortably at rest but becomes SOB when she tries to walk around. Some abdominal pain around incision. Tolerating diet. Objective Vital Signs Date Time Temp Pulse Resp B/P (MAP) Pulse Ox O2 Delivery O2 Flow Rate FiO2 07/24/17 06:00 76 07/24/17 05:00 69 07/24/17 04:00 72 07/24/17 03:00 97.6 79 16 102/59 (73) 93 07/24/17 03:00 79 07/24/17 03:00 93 Nasal Cannula 3.00 07/24/17 02:00 75 07/24/17 01:00 84 07/24/17 00:00 71 07/23/17 23:00 74 07/23/17 23:00 97.8 72 16 103/59 (74) 100 07/23/17 23:00 100 Bi-Pap 07/23/17 22:00 75 07/23/17 21:30 Bi-Pap 07/23/17 21:30 96 40 07/23/17 21:00 84 07/23/17 20:22 96 Nasal Cannula 4.00 07/23/17 20:00 80 07/23/17 19:35 Nasal Cannula 3.00 07/23/17 19:30 97.6 79 16 103/50 (67) 96 07/23/17 19:30 96 Nasal Cannula 4.00 07/23/17 19:00 79 07/23/17 18:30 82 07/23/17 18:00 84 07/23/17 17:00 80 07/23/17 16:56 20 07/23/17 16:00 94 07/23/17 15:44 97 Nasal Cannula 4.00 07/23/17 15:33 98.2 88 20 109/65 (80) 97 07/23/17 15:00 84 07/23/17 14:00 90 07/23/17 13:00 90 07/23/17 12:30 88 07/23/17 11:02 95 Nasal Cannula 3.00 07/23/17 11:00 91 07/23/17 11:00 98.1 91 16 110/76 (87) 96 07/23/17 11:00 96 Nasal Cannula 3.00 I/O 07/23/17 07/23/17 07/23/17 07/24/17 07/24/17 07/24/17 07:00 15:00 23:00 07:00 15:00 23:00 Intake Total 400 ml 450 ml 480 ml Output Total 600 ml 300 ml 400 ml Balance -200 ml 150 ml 80 ml Intake Oral 400 ml 350 ml 480 ml IV Total 100 ml Output Urine Total 600 ml 300 ml 400 ml # Voids 1 # Bowel Movements 0 0 Result Diagram: 07/24/17 0520 07/24/17 0520 Imaging Last Impressions Chest X-Ray 07/24/17 0600 Signed Impressions: Service Date/Time: Monday, July 24, 2017 04:21 - CONCLUSION: Improved bilateral parenchymal consolidation. Arun Smith MD Lower Extremity Ultrasound 07/21/17 0000 Signed Impressions: Service Date/Time: Friday, July 21, 2017 10:02 - CONCLUSION: Negative exam with no evidence of deep venous thrombosis. Narendra Maguire MD Gall Bladder Ultrasound 07/21/17 0000 Signed Impressions: Service Date/Time: Friday, July 21, 2017 15:43 - CONCLUSION: Unremarkable right upper quadrant ultrasound Arun Tanner MD Abdomen/Pelvis CT 07/21/17 0000 Signed Impressions: Service Date/Time: June 11:58 - CONCLUSION: 1. Status post cholecystectomy. 2. 5 mm hepatic cyst in the left lobe. 3. Scattered interstitial infiltrates and parenchymal infiltrates in both lung bases. 4. Diffuse primary degenerative changes, disc degeneration and disc space narrowing throughout the lumbar spine. David Zelaya MD CT Angiography 07/20/17 0000 Signed Impressions: Service Date/Time: Thursday, July 20, 2017 16:49 - CONCLUSION: 1. Bibasilar subsegmental and segmental pulmonary emboli. 2. Extensive interstitial and alveolar infiltration throughout the lungs characteristic of pulmonary edema and possible superimposed pneumonitis. 3. Right hilar and subcarinal lymphadenopathy. 4. Significant right-sided heart dilatation Aftab Snyder MD Other Results GENERAL: elderly appearing female, sitting comfortably SKIN: Warm and dry. dressing left upper abdomen C/D/I HEAD: Normocephalic. EYES: No scleral icterus. No injection or drainage. NECK: Supple, trachea midline. No JVD or lymphadenopathy. CARDIOVASCULAR: Regular rate and rhythm without murmurs, gallops, or rubs. RESPIRATORY: Breath sounds equal bilaterally. No accessory muscle use. Nasal canula in place. GASTROINTESTINAL: Abdomen soft, non-tender, nondistended. MUSCULOSKELETAL: No cyanosis, or edema. Bilat SCDs in place, no calf tenderness. A/P Problem List: (1) Severe sepsis ICD Code: A41.9 - Sepsis, unspecified organism; R65.20 - Severe sepsis without septic shock Status: Acute (2) Metastatic adenocarcinoma ICD Code: C79.9 - Secondary malignant neoplasm of unspecified site (3) Pulmonary emboli ICD Code: I26.99 - Other pulmonary embolism without acute cor pulmonale (4) Non-small cell lung cancer (NSCLC) ICD Code: C34.90 - Malignant neoplasm of unspecified part of unspecified bronchus or lung (5) Pericardial effusion with cardiac tamponade ICD Code: I31.3 - Pericardial effusion (noninflammatory); I31.4 - Cardiac tamponade Status: Acute (6) Hypoxemia ICD Code: R09.02 - Hypoxemia Assessment and Plan 77 yo female admitted for sepsis due to pneumonia found to have PE, large pericardial effusion/cardiac tamponade fluid concerning for infectious process, ID consulted, was intubated then successfully extubated, coagulopathic requiring FFP and cyproprecipitate, LFTs and lipase noted to be elevated GI was consulted for this. Previously under the care of critical care and transferred to Hospitalist service. Sepsis/PNA/COPD exacerbation - Nasal cannula currently at 3 L to maintain saturations greater than or equal to 88% - Tobacco cessation - Followed by Dr. Cox - pulmonology, treating for COPD exacerbation: levaquin 500 mg daily, prednisone 20 mg daily, PFTs when out of ICU, d/c Bipap, acapella, incentive spirometer, nebs quid, duoneb - Infectious disease was following, due to results of cytology and no evidence of infection ID had signed off 07/16/17 Cultures - 07/16 blood cultures negative to date - 07/16 - UA -no growth - 07/16 - pericardial fluid - no growth - 07/17 - sputum - no growth History of arrhythmia Cardiac tamponade on status post pericardial window 07/[address] Huber, pericardial fluid hemorrhagic, exudative - 2-D echo 07/16 - The left ventricular systolic function is normal with an estimated ejection fraction in the range of 60-65%. Normal left ventricular size. Wall thickness is normal. No regional wall motion abnormalities are present. Aortic valve sclerosis is present. There is trace tricuspid valve regurgitation. The estimated pulmonary arterial pressure is 24 mmHg. There is large pericardial effusion present. Echocardiographic features were consistent with hemodynamically significant pericardial effusion and tamponade physiology. - 2-D echo 07/21 - Normal left ventricular size and wall thickness. The left ventricular systolic function is normal with an estimated ejection fraction in the range of 60-65%. Normal left ventricular wall motion. The right ventricle is moderately dilated. The right ventricular systoilc function is mildly decreased. The right atrial size is moderately dilated. The left atrial size is normal. Mild mitral valve regurgitation. There is moderate tricuspid regurgitation. The estimated pulmonary systolic pressure is 42 mmHg. - Continue aspirin - Lasix 20 mg IV twice a day, with KCl 10 Kiko use twice a day Elevated lipase and LFTs - Has been seen and evaluated by GI - Lab abnormality such be due to sepsis given normal ultrasound and CT - May consider liver biopsy if do not improve - Antibodies ordered and pending - Hepatitis profile ordered, negative PE - See CTA above - Currently on lovenox - Per hematology okay to start Coumadin - Coumadin 2.5 mg daily started on 07/23, INR 1.1, management per pharmacy, 3.5 mg today Non small cell lung cancer - Pericardial biopsy c/w NSCLCA adenocarcinoma histology. - Molecular studies pending - Oncology is following, will follow with Dr. Smith in 2 weeks - Patient does not want cancer diagnosis discussed in front of her daughter Abnormal thyroid function, recommend repeat thyroid functions in 4-6 weeks after critical illnesses resolved. Discharge Planning Pending improvement and stabilization of clinical status. INR will need to be therapeutic on coumadin. Cassandra Matute MD Jul 24, 2017 07:53
[2017-07-24] MEDS: RESP: ALBUTEROL 2.5 MG/IPRATROPIUM 0.5 MG NEB (SCH) NEB ×2 (07:57→15:11)
[2017-07-24] MEDS: FUROSEMIDE 20 MG/2 ML VIAL IV PUSH SCH (08:39)
[2017-07-24] MEDS: MULTIVITAMINS/MINERALS THERAPEUTIC TAB PO SCH (08:39)
[2017-07-24] MEDS: POTASSIUM CHLORIDE 10 MEQ CONTROLLED RELEASE TAB PO SCH ×2 (08:40→20:03)
[2017-07-24] MEDS: GABAPENTIN 400 MG CAP PO SCH ×4 (08:40→20:03)
[2017-07-24] MEDS: predniSONE 20 MG TAB PO SCH (08:40)
[2017-07-24] MEDS: ASPIRIN 81 MG CHEW TAB PO SCH (08:40)
[2017-07-24] MEDS: SODIUM CHLORIDE 0.9% FLUSH 10 ML FLUSH IV FLUSH SCH ×2 (08:41→20:04)
[2017-07-24] MEDS: ENOXAPARIN SODIUM 60 MG/0.6 ML SYRINGE SQ SCH ×2 (08:42→20:03)
[2017-07-24] MEDS: POLYETHYLENE GLYCOL 17 GM PKG PO SCH (08:42)
[2017-07-24] MEDS: DOCUSATE SODIUM 50 MG/SENNA 8.6 MG TAB PO SCH ×2 (08:42→20:02)
[2017-07-24] MEDS: MAGNESIUM HYDROXIDE SUSP 30 ML CUP PO SCH (08:42)
[2017-07-24] MEDS: BUDESONIDE-FORMOTEROL 160/4.5 MCG INHALER INH SCH ×2 (08:42→20:04)
[2017-07-24] MEDS: traMADol HCL 50 MG TAB PO PRN ×2 (08:49→20:12)
[2017-07-24] MEDS: WARFARIN SOD 2.5 MG TAB PO SCH (16:00)
[2017-07-24] MEDS: LEVOFLOXACIN 500 MG PREMIX INJ 100 ML IV SCH (16:00)
[2017-07-24] MEDS ORDERED: WARFARIN SOD 1 MG TAB PO ONE (16:00)
--- NOTE | 2017-07-24 18:38 | HHI.PR ---
Subjective Remarks Weak today.PE on CTA. On Lovenox.Pericardial fluid shows Path on pericardial biopsy shows Adenocarcinoma. Output was OK. INR is low. On Coumadin 5 mg Objective Vital Signs Date Time Temp Pulse Resp B/P (MAP) Pulse Ox O2 Delivery O2 Flow Rate FiO2 07/24/17 18:00 73 07/24/17 17:00 74 07/24/17 16:00 76 07/24/17 15:14 98 Nasal Cannula 1.00 07/24/17 15:00 97 Nasal Cannula 3.00 07/24/17 15:00 98.3 81 16 107/67 (80) 97 07/24/17 15:00 81 07/24/17 14:00 78 07/24/17 13:00 80 07/24/17 12:00 74 07/24/17 11:00 97.9 81 16 100/60 (73) 96 07/24/17 11:00 81 07/24/17 11:00 96 Nasal Cannula 3.00 07/24/17 10:21 16 07/24/17 10:00 76 07/24/17 09:00 81 07/24/17 08:00 78 07/24/17 07:59 95 Nasal Cannula 3.00 07/24/17 07:00 95 07/24/17 07:00 95 Nasal Cannula 3.00 07/24/17 07:00 98.3 84 16 90/56 (67) 95 07/24/17 06:00 76 07/24/17 05:00 69 07/24/17 04:00 72 07/24/17 03:00 97.6 79 16 102/59 (73) 93 07/24/17 03:00 79 07/24/17 03:00 93 Nasal Cannula 3.00 07/24/17 02:00 75 07/24/17 01:00 84 07/24/17 00:00 71 07/23/17 23:00 74 07/23/17 23:00 97.8 72 16 103/59 (74) 100 07/23/17 23:00 100 Bi-Pap 07/23/17 22:00 75 07/23/17 21:30 Bi-Pap 07/23/17 21:30 96 40 07/23/17 21:00 84 07/23/17 20:22 96 Nasal Cannula 4.00 07/23/17 20:00 80 07/23/17 19:35 Nasal Cannula 3.00 07/23/17 19:30 97.6 79 16 103/50 (67) 96 07/23/17 19:30 96 Nasal Cannula 4.00 07/23/17 19:00 79 I/O 07/23/17 07/23/17 07/23/17 07/24/17 07/24/17 07/24/17 07:00 15:00 23:00 07:00 15:00 23:00 Intake Total 400 ml 450 ml 480 ml 400 ml Output Total 600 ml 300 ml 400 ml 1000 ml Balance -200 ml 150 ml 80 ml -600 ml Intake Oral 400 ml 350 ml 480 ml 300 ml IV Total 100 ml 100 ml Output Urine Total 600 ml 300 ml 400 ml 1000 ml # Voids 1 # Bowel Movements 0 0 1 Result Diagram: 07/24/1751907/24/17519 Objective Remarks GENERAL: Thinly built elderly lady who is pale , alert. HEENT: Head normocephalic. Pupils reactive and equal. Tongue is dry. Throat is clear. Nasal mucosa is clear. NECK: Supple without venous distension. No thyromegaly or lymphadenopathy. CHEST: Distant breath sounds with occ crackles at the lower chest with wheezes bilaterally. CARDIAC: Heart sounds irregular S1, S2 with no murmur or rub. ABDOMEN: Soft, scaphoid. No masses, no organomegaly or tenderness. EXTREMITIES:No lesions, minimal edema. NEUROLOGIC: Reflexes are normal. There were no gross motor deficits. Cranial nerves are grossly intact. RECTAL: Exam is deferred. SKIN: Warm, dry. Assessment and Plan Assessment and Plan IMPRESSION 1. Basilar pneumonia with hypoxemia. 2. Rule out pulmonary embolism. 3. COPD with emphysema and chronic bronchitis 4. Status post pericardial window placement for pericardial effusion. 5. History of nicotine dependency. 6. Dehydration resolved 7. Metastatic [place] CA. Plan : 1. Coumadin 5 mg daily 2. O2 3 L N/C and arrange home O2 3. D/C Lovenox when INR >2 4. Nebs qid , duoneb. 5. Lasix 20 mg po daily. 6. Continue Levaquin 500 mgm daily X3. 7. INR in am 8 Prednisone 20 mg daily Renny Cox MD Jul 24, 2017 18:38
[2017-07-24] MEDS: MONTELUKAST SODIUM 10 MG TAB PO SCH (20:03)
[2017-07-24] MEDS: ALPRAZolam 0.25 MG TAB PO PRN (20:49)
[2017-07-25] VITALS (26 sets, daily range): BP systolic 87–102; BP diastolic 52–57; PULSE 71–92; RESP 16–20; TEMP 97.6–98.9; O2SAT 93–98
[2017-07-25] MEDS: PANTOPRAZOLE SOD 40 MG DELAYED RELEASE TAB PO SCH (05:00)
[2017-07-25] MEDS: traMADol HCL 50 MG TAB PO PRN (05:00)
[2017-07-25 06:33] LABS: AUTOMATED NEUTROPHIL # 8.6 TH/MM3 (1.8-7.7); BASOPHIL % 0.4 % (0.0-2.0); EOSINOPHIL # 0.2 TH/MM3 (0-0.4); EOSINOPHIL % 1.8 % (0.0-4.0); HEMATOCRIT 32.2 % (35.0-46.0); LYMPH % 11.3 % (9.0-44.0); LYMPHOCYTE # 1.2 TH/MM3 (1.0-4.8); MEAN CELL VOLUME 87.9 FL (80.0-100.0); MEAN CORPUSCULAR HEMOGLOBIN 29.9 PG (27.0-34.0); MEAN PLATELET VOLUME 9.8 FL (7.0-11.0); MONO % 7.4 % (0.0-8.0); MONOCYTE # 0.8 TH/MM3 (0-0.9); NEUT % 79.1 % (16.0-70.0); PLATELET COUNT 293 TH/MM3 (150-450); RED BLOOD COUNT 3.66 MIL/MM3 (4.00-5.30); RED CELL DISTRIBUTION WIDTH 14.9 % (11.6-17.2); WHITE BLOOD COUNT 10.8 TH/MM3 (4.0-11.0)
[2017-07-25 06:34] LABS: HEMOGLOBIN 10.9 GM/DL (11.6-15.3)
[2017-07-25 06:38] LABS: INTERNATIONAL NORMALIZED RATIO 1.2 RATIO; PROTHROMBIN TIME - PATIENT 11.9 SEC (9.8-11.6)
[2017-07-25 07:04] LABS: BICARBONATE 29.1 MEQ/L (21.0-32.0); CREATININE 0.57 MG/DL (0.50-1.00)
[2017-07-25] MEDS: GABAPENTIN 400 MG CAP PO SCH ×4 (08:20→20:52)
[2017-07-25] MEDS: ENOXAPARIN SODIUM 60 MG/0.6 ML SYRINGE SQ SCH ×2 (08:20→20:52)
[2017-07-25] MEDS: predniSONE 20 MG TAB PO SCH (08:20)
[2017-07-25] MEDS: FUROSEMIDE 20 MG TAB PO SCH ×2 (08:21→17:07)
[2017-07-25] MEDS: MULTIVITAMINS/MINERALS THERAPEUTIC TAB PO SCH (08:21)
[2017-07-25] MEDS: ASPIRIN 81 MG CHEW TAB PO SCH (08:21)
[2017-07-25] MEDS: POTASSIUM CHLORIDE 10 MEQ CONTROLLED RELEASE TAB PO SCH ×2 (08:21→20:53)
[2017-07-25] MEDS: SODIUM CHLORIDE 0.9% FLUSH 10 ML FLUSH IV FLUSH SCH ×2 (08:22→20:53)
[2017-07-25] MEDS: MAGNESIUM HYDROXIDE SUSP 30 ML CUP PO SCH (08:22)
[2017-07-25] MEDS: POLYETHYLENE GLYCOL 17 GM PKG PO SCH (08:22)
[2017-07-25] MEDS: BUDESONIDE-FORMOTEROL 160/4.5 MCG INHALER INH SCH ×2 (08:22→20:53)
[2017-07-25] MEDS: DOCUSATE SODIUM 50 MG/SENNA 8.6 MG TAB PO SCH ×2 (08:22→20:53)
[2017-07-25] MEDS ORDERED: LEVOFLOXACIN 500 MG TAB PO SCH (09:00)
[2017-07-25] MEDS ORDERED: PETROLATUM 30 GM TUBE TOPICAL PRN (10:45)
--- NOTE | 2017-07-25 10:53 | HHI.PR ---
Subjective Remarks Patient is noted sitting up on her chair by the bedside. She is quite dyspneic at rest. Was coughing quite a bit as well and unable to expectorate. She just took a long walk around the unit with her nurse for about 30 minutes or so and also just took a bath with help of her nurse. She is on 4 L nasal cannular. Patient denies any overnight events her symptoms. However she does admit to feeling extremely tired after the walk in a bath. She is quite dyspneic as well. Objective Vitals Vital Signs Date Time Temp Pulse Resp B/P (MAP) Pulse Ox O2 Delivery O2 Flow Rate FiO2 07/25/17 10:00 92 07/25/17 09:00 86 07/25/17 08:00 78 07/25/17 07:53 95 Nasal Cannula 2.00 07/25/17 07:15 97.6 74 18 91/55 (67) 93 07/25/17 07:15 72 07/25/17 07:15 93 Nasal Cannula 2.00 07/25/17 06:08 73 07/25/17 05:21 71 07/25/17 04:25 77 07/25/17 03:40 97.9 73 16 87/57 (67) 96 07/25/17 03:40 96 Nasal Cannula 2.00 07/25/17 03:17 76 07/25/17 02:04 75 07/25/17 01:06 76 07/25/17 00:28 77 07/24/17 23:25 98.1 79 18 95/55 (68) 98 07/24/17 23:25 98 Nasal Cannula 2.00 07/24/17 23:02 81 07/24/17 22:15 78 07/24/17 21:48 78 07/24/17 20:35 96 Nasal Cannula 2.00 07/24/17 20:15 82 07/24/17 19:30 98.2 82 19 87/50 (62) 95 07/24/17 19:30 78 07/24/17 19:30 95 Nasal Cannula 2.00 07/24/17 18:00 73 07/24/17 17:00 74 07/24/17 16:00 76 07/24/17 15:14 98 Nasal Cannula 1.00 07/24/17 15:00 97 Nasal Cannula 3.00 07/24/17 15:00 98.3 81 16 107/67 (80) 97 07/24/17 15:00 81 07/24/17 14:00 78 07/24/17 13:00 80 07/24/17 12:00 74 07/24/17 11:00 97.9 81 16 100/60 (73) 96 07/24/17 11:00 81 07/24/17 11:00 96 Nasal Cannula 3.00 I/O 07/24/17 07/24/17 07/24/17 07/25/17 07/25/17 07/25/17 07:00 15:00 23:00 07:00 15:00 23:00 Intake Total 480 ml 400 ml 480 ml Output Total 400 ml 1000 ml 1600 ml Balance 80 ml -600 ml -1120 ml Intake Oral 480 ml 300 ml 480 ml IV Total 100 ml Output Urine Total 400 ml 1000 ml 1600 ml # Bowel Movements 0 1 0 Result Diagram: 07/25/1760007/25/17600 Objective Remarks GENERAL: Elderly lady, thin, sitting on her chair next to her bed. Dyspneic at rest after long walk and the past. On 4 L nasal cannular. SKIN: Warm and dry. dressing left upper abdomen with no obvious discharge/ erythema/plus HEAD: Normocephalic. Atraumatic EYES: No scleral icterus. No injection or drainage. NECK: Supple, trachea midline. No JVD. No neck rigidity. CARDIOVASCULAR: Regular rate and rhythm without murmurs, gallops, or rubs. RESPIRATORY: Breath sounds equal bilaterally. Basilar crepitations. No respiratory accessory muscle use although does look to be dyspneic. GASTROINTESTINAL: Abdomen soft, non-tender, nondistended. MUSCULOSKELETAL: No cyanosis, or edema. No calf asymmetry or edema Neuro: Awake, alert, no focal deficits. Was seen ambulating around the unit with 4 wheel walker Procedures 07/16-pericardial window Date of Insertion: Jul 16, 2017 Date of Insertion: Jul 16, 2017 A/P Assessment and Plan Impression: Severe sepsis/pneumonia COPD exacerbation Hypoxia requiring oxygen supplementation Patient is currently on 4 L nasal cannula. Continue nebulizer treatments and steroids. Walk test this evening. Pulmonary following. Case management consult for home oxygen and nebulizers arrangement. All cultures have been negative and infectious disease service has signed off since July 16, 2017. Newly diagnosed non-small cell lung cancer. To follow-up with Dr. Smith in 2 weeks. Patient does not want her daughter and her sister to know of this cancer diagnosis. Metastatic adenocarcinoma Pulmonary embolism. On Coumadin. Subtherapeutic INR. Lovenox overlap. Pericardial effusion with cardiac tamponade requiring pericardial window Cardiac tamponade status post pericardial window by Dr. Huber on July 16. Fluid studies exudate. Echo reviewed. Continue aspirin Continue diuretics with potassium replacements LFT abnormality Being followed by GI. thought to be Secondary to sepsis. Ultrasound and CAT scans all negative. We'll follow. DC hepatotoxic meds Abnormal thyroid function test. Repeat TFTs in about 4-6 weeks once critical illness is resolved. DVT prophylaxis with Coumadin/Lovenox Discharge Planning Once patient is clinically ready. Clinically, patient is quite still dyspneic. She only wants to go home. Refused for inpatient [place] rehabilitation. She states her is arranging with the case management regarding home health care/home PT. She also has a daughter who lives with them who is 50 years old or so. Manjeet Abdalla MD Jul 25, 2017 10:53
[2017-07-25 13:52] LABS: BETA2 GLYCOPROTEIN I AB IGG LESS THAN 9.0 SGU (< OR = 20); BETA2 GLYCOPROTEIN I AB IGM LESS THAN 9.0 SMU (< OR = 20)
[2017-07-25 15:51] LABS: BETA2 GLYCOPROTEIN I AB IGA LESS THAN 9.0 SAU (< OR = 20); CARDIOLIPIN AB IGA LESS THAN 11.0 APL (0-11)
[2017-07-25] MEDS ORDERED: WARFARIN SOD 1 MG TAB PO ONE (16:00)
--- NOTE | 2017-07-25 16:11 | HHI.PR ---
Subjective Remarks Weak still today. Walked in halls.On Lovenox . Path on pericardial biopsy shows Adenocarcinoma. Output was OK. INR is still low. On Coumadin 5 mg Objective Vital Signs Date Time Temp Pulse Resp B/P (MAP) Pulse Ox O2 Delivery O2 Flow Rate FiO2 07/25/17 16:00 82 07/25/17 15:00 81 07/25/17 15:00 98 Nasal Cannula 3.00 07/25/17 15:00 97.9 85 20 102/56 (71) 98 07/25/17 14:00 88 07/25/17 13:00 82 07/25/17 12:00 82 07/25/17 11:00 98.9 80 20 102/56 (71) 94 07/25/17 11:00 94 Nasal Cannula 3.00 07/25/17 11:00 81 07/25/17 10:00 92 07/25/17 09:00 86 07/25/17 08:00 78 07/25/17 07:53 95 Nasal Cannula 2.00 07/25/17 07:15 97.6 74 18 91/55 (67) 93 07/25/17 07:15 72 07/25/17 07:15 93 Nasal Cannula 2.00 07/25/17 06:08 73 07/25/17 05:21 71 07/25/17 04:25 77 07/25/17 03:40 97.9 73 16 87/57 (67) 96 07/25/17 03:40 96 Nasal Cannula 2.00 07/25/17 03:17 76 07/25/17 02:04 75 07/25/17 01:06 76 07/25/17 00:28 77 07/24/17 23:25 98.1 79 18 95/55 (68) 98 07/24/17 23:25 98 Nasal Cannula 2.00 07/24/17 23:02 81 07/24/17 22:15 78 07/24/17 21:48 78 07/24/17 20:35 96 Nasal Cannula 2.00 07/24/17 20:15 82 07/24/17 19:30 98.2 82 19 87/50 (62) 95 07/24/17 19:30 78 07/24/17 19:30 95 Nasal Cannula 2.00 07/24/17 18:00 73 07/24/17 17:00 74 I/O 07/24/17 07/24/17 07/24/17 07/25/17 07/25/17 07/25/17 07:00 15:00 23:00 07:00 15:00 23:00 Intake Total 480 ml 400 ml 480 ml Output Total 400 ml 1000 ml 1600 ml Balance 80 ml -600 ml -1120 ml Intake Oral 480 ml 300 ml 480 ml IV Total 100 ml Output Urine Total 400 ml 1000 ml 1600 ml # Bowel Movements 0 1 0 Result Diagram: 07/25/17 0601 07/25/17 06 Objective Remarks GENERAL: Thinly built elderly lady who is pale , alert. HEENT: Head normocephalic. Pupils reactive and equal. Tongue is dry. Throat is clear. Nasal mucosa is clear. NECK: Supple without venous distension. No thyromegaly or lymphadenopathy. CHEST: Distant breath sounds with wheezes bilaterally. CARDIAC: Heart sounds irregular S1, S2 with no murmur or rub. ABDOMEN: Soft, scaphoid. No masses, no organomegaly or tenderness. EXTREMITIES:No lesions, minimal edema. NEUROLOGIC: Reflexes are normal. There were no gross motor deficits. RECTAL: Exam is deferred. SKIN: Warm, dry. Assessment and Plan Assessment and Plan IMPRESSION 1. Basilar pneumonia with hypoxemia. 2. Rule out pulmonary embolism. 3. COPD with emphysema and chronic bronchitis 4. Status post pericardial window placement for pericardial effusion. 5. History of nicotine dependency. 6. Dehydration resolved 7. Metastatic Adeno CA. Plan : 1. Coumadin 7.5 mg daily 2. O2 3 L N/C and arrange home O2 3. D/C Lovenox when INR >2 4. D/C Nebs 5. Lasix 20 mg po daily. 6. Continue Levaquin 500 mgm daily X3. 7. Add Spiriva , 1 cap Inhaled daily 8 Prednisone 10 mg daily Renny Cox MD Jul 25, 2017 16:11
[2017-07-25] MEDS: WARFARIN SOD 2.5 MG TAB PO SCH (16:12)
[2017-07-25] MEDS: MONTELUKAST SODIUM 10 MG TAB PO SCH (20:53)
[2017-07-25] MEDS: ALPRAZolam 0.25 MG TAB PO PRN (20:53)
[2017-07-26] VITALS (27 sets, daily range): BP systolic 86–112; BP diastolic 54–65; PULSE 72–98; RESP 17–22; TEMP 98–98.5; O2SAT 90–98
[2017-07-26 06:08] LABS: INTERNATIONAL NORMALIZED RATIO 1.2 RATIO; PROTHROMBIN TIME - PATIENT 12.1 SEC (9.8-11.6)
[2017-07-26] MEDS: PANTOPRAZOLE SOD 40 MG DELAYED RELEASE TAB PO SCH (06:14)
[2017-07-26] MEDS: TIOTROPIUM BROMIDE 18 MCG INH INH SCH (08:41)
[2017-07-26] MEDS: ENOXAPARIN SODIUM 60 MG/0.6 ML SYRINGE SQ SCH ×2 (08:42→20:46)
[2017-07-26] MEDS: MULTIVITAMINS/MINERALS THERAPEUTIC TAB PO SCH (08:42)
[2017-07-26] MEDS: ASPIRIN 81 MG CHEW TAB PO SCH (08:42)
[2017-07-26] MEDS: GABAPENTIN 400 MG CAP PO SCH ×4 (08:42→20:45)
[2017-07-26] MEDS: FUROSEMIDE 20 MG TAB PO SCH (08:42)
[2017-07-26] MEDS: POTASSIUM CHLORIDE 10 MEQ CONTROLLED RELEASE TAB PO SCH ×2 (08:42→20:45)
[2017-07-26] MEDS: predniSONE 20 MG TAB PO SCH (08:42)
[2017-07-26] MEDS: BUDESONIDE-FORMOTEROL 160/4.5 MCG INHALER INH SCH ×2 (08:43→20:47)
[2017-07-26] MEDS: SODIUM CHLORIDE 0.9% FLUSH 10 ML FLUSH IV FLUSH SCH ×2 (08:43→20:45)
[2017-07-26] MEDS: MAGNESIUM HYDROXIDE SUSP 30 ML CUP PO SCH (08:44)
[2017-07-26] MEDS: DOCUSATE SODIUM 50 MG/SENNA 8.6 MG TAB PO SCH ×2 (08:44→20:45)
[2017-07-26] MEDS: POLYETHYLENE GLYCOL 17 GM PKG PO SCH (08:44)
[2017-07-26] MEDS ORDERED: WARFARIN SOD 10 MG TAB PO ONE (10:00)
--- NOTE | 2017-07-26 10:03 | HHI.PR ---
Subjective Remarks Sitting on her chair by the bedside. Much more energetic. Stated she felt much better. She is she is ready to go home either later today or tomorrow. She however has not walked with physical therapy yet. Overnight events reviewed. Patient herself reports no significant symptoms overnight. Is eager to start investigations with her oncology team soon. Objective Vitals Vital Signs Date Time Temp Pulse Resp B/P (MAP) Pulse Ox O2 Delivery O2 Flow Rate FiO2 07/26/17 07:12 90 Nasal Cannula 3.00 07/26/17 07:12 98.0 83 22 106/65 (79) 90 07/26/17 06:03 80 07/26/17 05:07 79 07/26/17 04:18 80 07/26/17 03:45 80 07/26/17 03:45 98.2 72 18 102/62 (75) 98 07/26/17 03:45 98 Nasal Cannula 3.00 07/26/17 02:11 82 07/26/17 01:19 77 07/26/17 00:48 79 07/25/17 23:44 83 07/25/17 23:44 98.0 83 19 99/57 (71) 98 07/25/17 23:44 98 Nasal Cannula 3.00 07/25/17 22:13 80 07/25/17 21:12 80 07/25/17 20:30 83 07/25/17 19:20 97.8 86 18 97/52 (67) 98 07/25/17 19:20 85 07/25/17 19:20 98 Nasal Cannula 3.00 07/25/17 18:00 82 07/25/17 17:00 84 07/25/17 16:00 82 07/25/17 15:00 81 07/25/17 15:00 98 Nasal Cannula 3.00 07/25/17 15:00 97.9 85 20 102/56 (71) 98 07/25/17 14:00 88 07/25/17 13:00 82 07/25/17 12:00 82 07/25/17 11:00 98.9 80 20 102/56 (71) 94 07/25/17 11:00 94 Nasal Cannula 3.00 07/25/17 11:00 81 I/O 07/25/17 07/25/17 07/25/17 07/26/17 07/26/17 1/1/18 07:00 15:00 23:00 07:00 15:00 23:00 Intake Total 480 ml 720 ml 720 ml Output Total 1600 ml 600 ml 700 ml Balance -1120 ml 120 ml 20 ml Intake Oral 480 ml 720 ml 720 ml Output Urine Total 1600 ml 600 ml 700 ml # Voids 2 # Bowel Movements 0 1 1 Result Diagram: 07/25/1760007/25/17600 Objective Remarks GENERAL: Elderly lady, thin, sitting on her chair next to her bed. Quite comfortable on the chair today. On 3 L nasal cannular. SKIN: Warm and dry. dressing left upper abdomen with no obvious discharge/ erythema/plus HEAD: Normocephalic. Atraumatic EYES: No scleral icterus. No injection or drainage. NECK: Supple, trachea midline. No JVD. No neck rigidity. CARDIOVASCULAR: Regular rate and rhythm without murmurs, gallops, or rubs. RESPIRATORY: Breath sounds equal bilaterally. Bilateral Basilar crepitations. No respiratory accessory muscle use. Quite comfortable at rest. GASTROINTESTINAL: Abdomen soft, non-tender, nondistended. MUSCULOSKELETAL: No cyanosis, or edema. No calf asymmetry or edema Neuro: Awake, alert, no focal deficits. Procedures 07/16-pericardial window Date of Insertion: Jul 16, 2017 Date of Insertion: Jul 16, 2017 A/P Assessment and Plan Impression: Severe sepsis/pneumonia COPD exacerbation Hypoxia requiring oxygen supplementation Patient is currently on 3 L nasal cannula. Continue nebulizer treatments and steroids. Walk test was done yesterday per patient. Pulmonary following. Case management consult for home oxygen and nebulizers arrangement. All cultures have been negative and infectious disease service has signed off since July 16, 2017. Newly diagnosed non-small cell lung cancer. To follow-up with Dr. Smith in 2 weeks. Patient does not want her daughter and her sister to know of this cancer diagnosis. Metastatic adenocarcinoma Pulmonary embolism. On Coumadin. Subtherapeutic INR. Lovenox overlap. Pericardial effusion with cardiac tamponade requiring pericardial window Cardiac tamponade status post pericardial window by Dr. Huber on July 16. Fluid studies exudate. Echo reviewed. Continue aspirin Continue diuretics with potassium replacements LFT abnormality Being followed by GI. thought to be Secondary to sepsis. Ultrasound and CAT scans all negative. We'll follow. DC hepatotoxic meds Abnormal thyroid function test. Repeat TFTs in about 4-6 weeks once critical illness is resolved. DVT prophylaxis with Coumadin/Lovenox Today was noted that her blood pressure is on the low side. patient is a thin lady with baseline low blood pressure. She is not on any antihypertensive medications. She was started on Lasix while in hospital initially because of her significant dyspnea. We'll decrease Lasix to 20 mg by mouth daily from a twice a day dosing. We'll resume patient's home meds at the same home dose for tramadol and gabapentin. The doses were confirmed with patient. Patient will need home oxygen. Discussed with case management and nursing staff in detail. Home health care arrangements. For nursing to measure vitals, INR checks, PT eval, Coumadin teaching, medications education. Home PT. Orders have been written. Patient will need follow-up with oncology as soon as possible. Follow-up with Dr. Huber for sutures removal. Follows with pulmonology. Orders written. Discharge Planning Likely tomorrow. Patient will walk with physical therapy again later today. Both patient and nursing instructed to call me if she is quite dyspneic and symptomatic with therapy again. Otherwise, if patient is comfortable, we will go ahead and plan for tomorrow his discharge. Case management and nursing staff informed that we can start arranging for home oxygen/home health care nurse/Lovenox shots etc. Patient has her and her daughter who will take care of her at home. aMnjeet Abdalla MD Jul 26, 2017 10:03
--- NOTE | 2017-07-26 12:32 | HHI.FF ---
Face to Face Verification Diagnosis: (1) Severe sepsis (2) Pericardial effusion with cardiac tamponade (3) Pulmonary emboli (4) Non-small cell lung cancer (NSCLC) (5) Hypoxemia (6) Metastatic adenocarcinoma Physical Therapy Order: Evaluate and Treat Home Health Nursing Order: Medical education Signs/symptoms of disease process Oxygen administration education Medication education-adverse effect Wound care and dressing changes Nursing assessment with vital signs Instructions: [facility] nursing - to teach pt on medications administration, lovenox injections, coumadin teaching, INR check. Report to PCP with INR values and vitals. Check vitals daily- pt runs low BP at baseline. next INR check- 07/29/2017 [facility] nursing- to also please teach pt on how to check INR using her own point of care machine if insurance approves for machine/ OR [facility] nurse machine [facility] Physical therapy- to resume PT at home by therapist. I have seen patient Tiffanie Geiger on 07/26/17. My clinical findings support the need for the requested home health care services because: Ltd mobility - disease progression Patient has SOB Deconditioned w/ increased weakness Limited ability to care for self High risk of falls Injectable med education/admin I certify that my clinical findings support that this patient is homebound because: Post-op weakness Hx COPD- exertion dyspnea/weakness Unsteady gait/balance Unsafe to leave home unassisted Manjeet Abdalla MD Jul 26, 2017 12:32
[2017-07-26] MEDS ORDERED: OXYGENDME NAS.CANULA (12:40)
[2017-07-26] MEDS ORDERED: OXYGENTANK NAS.CANULA (12:40)
--- NOTE | 2017-07-26 15:04 | HHI.PR ---
Subjective Remarks Better today. Walked in halls.On Coumadin . Path on pericardial biopsy shows Adenocarcinoma. INR is still low. Objective Vital Signs Date Time Temp Pulse Resp B/P (MAP) Pulse Ox O2 Delivery O2 Flow Rate FiO2 07/26/17 14:00 96 07/26/17 13:00 94 07/26/17 12:00 91 07/26/17 11:29 98.0 91 20 91/54 (66) 98 07/26/17 11:29 98 Nasal Cannula 3.00 07/26/17 11:00 92 07/26/17 10:00 90 07/26/17 09:00 83 07/26/17 08:00 78 07/26/17 07:12 90 Nasal Cannula 3.00 07/26/17 07:12 98.0 83 22 106/65 (79) 90 07/26/17 07:00 75 07/26/17 06:03 80 07/26/17 05:07 79 07/26/17 04:18 80 07/26/17 03:45 80 07/26/17 03:45 98.2 72 18 102/62 (75) 98 07/26/17 03:45 98 Nasal Cannula 3.00 07/26/17 02:11 82 07/26/17 01:19 77 07/26/17 00:48 79 07/25/17 23:44 83 07/25/17 23:44 98.0 83 19 99/57 (71) 98 07/25/17 23:44 98 Nasal Cannula 3.00 07/25/17 22:13 80 07/25/17 21:12 80 07/25/17 20:30 83 07/25/17 19:20 97.8 86 18 97/52 (67) 98 07/25/17 19:20 85 07/25/17 19:20 98 Nasal Cannula 3.00 07/25/17 18:00 82 07/25/17 17:00 84 07/25/17 16:00 82 I/O 07/25/17 07/25/17 07/25/17 07/26/17 07/26/17 07/26/17 07:00 15:00 23:00 07:00 15:00 23:00 Intake Total 480 ml 720 ml 720 ml Output Total 1600 ml 600 ml 700 ml Balance -1120 ml 120 ml 20 ml Intake Oral 480 ml 720 ml 720 ml Output Urine Total 1600 ml 600 ml 700 ml # Voids 2 # Bowel Movements 0 1 1 Result Diagram: 07/25/1760007/25/17600 Objective Remarks GENERAL: Thinly built elderly lady who is pale , alert. HEENT: Head normocephalic. Pupils reactive and equal. Tongue is dry. Throat is clear. Nasal mucosa is clear. NECK: Supple without venous distension. No thyromegaly or lymphadenopathy. CHEST: Distant breath sounds with occ Basal crackles. CARDIAC: Heart sounds irregular S1, S2 with no murmur or rub. ABDOMEN: Soft, scaphoid. No masses, no organomegaly or tenderness. EXTREMITIES:No lesions,mild edema. NEUROLOGIC: Reflexes are normal. There were no gross motor deficits. RECTAL: Exam is deferred. SKIN: Warm, dry. Assessment and Plan Assessment and Plan IMPRESSION 1. Basilar pneumonia with hypoxemia. 2. Rule out pulmonary embolism. 3. COPD with emphysema and chronic bronchitis 4. Status post pericardial window placement for pericardial effusion. 5. History of nicotine dependency. 6. Dehydration resolved 7. Metastatic [place]eno CA. Plan : 1. Coumadin 5 mg daily 2. O2 3 L N/C and arrange home O2 3. D/C Lovenox when INR >2 4. Up with help 5. Lasix 20 mg po daily. 6. INR daily 7. Cont Spiriva , 1 cap Inhaled daily 8 D/C Prednisone Renny Cox MD Jul 26, 2017 15:04
[2017-07-26] MEDS ORDERED: WARFARIN SOD 2 MG TAB PO ONE (16:00)
[2017-07-26] MEDS: WARFARIN SOD 2.5 MG TAB PO SCH (16:00)
[2017-07-26] MEDS ORDERED: COUM2.5T PO (19:51)
[2017-07-26] MEDS ORDERED: PANT40TA3 PO (19:51)
[2017-07-26] MEDS ORDERED: ALBUAER3 INH (19:51)
[2017-07-26] MEDS ORDERED: KLOR10TA PO (19:51)
[2017-07-26] MEDS ORDERED: Budeson-Formot 160-4.5 Mcg Inh INH (19:51)
[2017-07-26] MEDS ORDERED: SPIRCAP INH (19:51)
[2017-07-26] MEDS ORDERED: MONT10TA4 PO (19:51)
[2017-07-26] MEDS ORDERED: ENOX60P SQ (19:51)
[2017-07-26] MEDS ORDERED: FURO20TA PO (19:51)
[2017-07-26] MEDS: MONTELUKAST SODIUM 10 MG TAB PO SCH (20:45)
[2017-07-26] MEDS: ALPRAZolam 0.25 MG TAB PO PRN (20:49)
[2017-07-26] MEDS: traMADol HCL 50 MG TAB PO PRN (20:50)
[2017-07-27] VITALS (14 sets, daily range): BP systolic 83–93; BP diastolic 54–62; PULSE 70–92; RESP 16; TEMP 97.9–98.2; O2SAT 97–98
[2017-07-27 04:36] LABS: INTERNATIONAL NORMALIZED RATIO 2.2 RATIO; PROTHROMBIN TIME - PATIENT 22.6 SEC (9.8-11.6)
[2017-07-27] MEDS: PANTOPRAZOLE SOD 40 MG DELAYED RELEASE TAB PO SCH (05:09)
[2017-07-27] MEDS: traMADol HCL 50 MG TAB PO PRN (05:09)
[2017-07-27] MEDS: TIOTROPIUM BROMIDE 18 MCG INH INH SCH (08:22)
[2017-07-27] MEDS: ASPIRIN 81 MG CHEW TAB PO SCH (08:23)
[2017-07-27] MEDS: POTASSIUM CHLORIDE 10 MEQ CONTROLLED RELEASE TAB PO SCH (08:23)
[2017-07-27] MEDS: GABAPENTIN 400 MG CAP PO SCH (08:23)
[2017-07-27] MEDS: MULTIVITAMINS/MINERALS THERAPEUTIC TAB PO SCH (08:23)
[2017-07-27] MEDS: DOCUSATE SODIUM 50 MG/SENNA 8.6 MG TAB PO SCH (08:23)
[2017-07-27] MEDS: ENOXAPARIN SODIUM 60 MG/0.6 ML SYRINGE SQ SCH (08:23)
[2017-07-27] MEDS: BUDESONIDE-FORMOTEROL 160/4.5 MCG INHALER INH SCH (08:24)
[2017-07-27] MEDS: SODIUM CHLORIDE 0.9% FLUSH 10 ML FLUSH IV FLUSH SCH (08:24)
[2017-07-27] MEDS ORDERED: predniSONE 10 MG TAB PO SCH (09:00)
[2017-07-27] MEDS ORDERED: FUROSEMIDE 20 MG TAB PO SCH (09:00)
--- NOTE | 2017-07-27 10:01 | HHI.PR ---
Subjective Remarks sitting up in bed looks much better today ambulated with PT and nursing twice yesterday desat to 87% on RA on ambulation yesterday on walk test had palpitations few sec last night, but resolved and HR was wnl BP still on low side Objective Vitals Vital Signs Date Time Temp Pulse Resp B/P (MAP) Pulse Ox O2 Delivery O2 Flow Rate FiO2 07/27/17 07:23 97 Nasal Cannula 2.00 07/27/17 07:23 97.9 70 16 93/62 (72) 97 07/27/17 06:36 72 07/27/17 05:28 77 07/27/17 04:34 75 07/27/17 03:25 98.2 78 16 83/54 (64) 97 07/27/17 03:25 97 Nasal Cannula 2.00 07/27/17 03:03 78 07/27/17 02:20 92 07/27/17 01:12 79 07/27/17 00:16 81 07/26/17 23:22 98.3 91 17 112/59 (76) 96 07/26/17 23:22 96 Nasal Cannula 2.00 07/26/17 23:22 82 07/26/17 22:30 96 07/26/17 21:00 92 07/26/17 20:12 92 07/26/17 19:30 98.5 94 18 86/58 (67) 98 07/26/17 19:30 93 07/26/17 19:30 98 Nasal Cannula 2.00 07/26/17 18:00 93 07/26/17 17:05 2.00 07/26/17 17:00 98 07/26/17 16:00 95 07/26/17 15:16 98.1 93 20 97/58 (71) 98 07/26/17 15:16 98 Nasal Cannula 2.00 07/26/17 15:00 90 07/26/17 14:00 96 07/26/17 13:00 94 07/26/17 12:00 91 07/26/17 11:29 98.0 91 20 91/54 (66) 98 07/26/17 11:29 98 Nasal Cannula 3.00 07/26/17 11:00 92 07/26/17 10:00 90 I/O 07/26/17 07/26/17 07/26/17 07/27/172/18 1/2/18 07:00 15:00 23:00 07:00 15:00 23:00 Intake Total 720 ml 840 ml 360 ml Output Total 700 ml 1500 ml 900 ml Balance 20 ml -660 ml -540 ml Intake Oral 720 ml 840 ml 360 ml Output Urine Total 700 ml 1500 ml 900 ml # Voids 2 # Bowel Movements 1 1 1 Result Diagram: 07/25/1760007/25/17600 Objective Remarks GENERAL: Elderly lady, thin, sitting on her chair next to her bed. Quite comfortable on the chair today. On 3 L nasal cannular. SKIN: Warm and dry. dressing left upper abdomen with no obvious discharge/ erythema/plus HEAD: Normocephalic. Atraumatic EYES: No scleral icterus. No injection or drainage. NECK: Supple, trachea midline. No JVD. No neck rigidity. CARDIOVASCULAR: Regular rate and rhythm without murmurs, gallops, or rubs. RESPIRATORY: Breath sounds equal bilaterally. Bilateral Basilar crepitations. No respiratory accessory muscle use. Quite comfortable at rest. GASTROINTESTINAL: Abdomen soft, non-tender, nondistended. MUSCULOSKELETAL: No cyanosis, or edema. No calf asymmetry or edema Neuro: Awake, alert, no focal deficits. Procedures 07/16-pericardial window Date of Insertion: Jul 16, 2017 Date of Insertion: Jul 16, 2017 A/P Assessment and Plan Impression: Severe sepsis/pneumonia COPD exacerbation Hypoxia requiring oxygen supplementation Patient is currently on 3 L nasal cannula. Continue nebulizer treatments and steroids. Walk test was done yesterday per patient. Pulmonary following. Case management consult for home oxygen and nebulizers arrangement. All cultures have been negative and infectious disease service has signed off since July 16, 2017. Newly diagnosed non-small cell lung cancer. To follow-up with Dr. Smith in 2 weeks. Patient does not want her daughter and her sister to know of this cancer diagnosis. Metastatic adenocarcinoma Pulmonary embolism. On Coumadin. Subtherapeutic INR. Lovenox overlap. Pericardial effusion with cardiac tamponade requiring pericardial window Cardiac tamponade status post pericardial window by Dr. Huber on July 16. Fluid studies exudate. Echo reviewed. Continue aspirin Continue diuretics with potassium replacements LFT abnormality Being followed by GI. thought to be Secondary to sepsis. Ultrasound and CAT scans all negative. We'll follow. DC hepatotoxic meds Abnormal thyroid function test. Repeat TFTs in about 4-6 weeks once critical illness is resolved. DVT prophylaxis with Coumadin/Lovenox d/c home today INR 2.2 will take out lovenox and lasix on dc order- pt explained BP still low due to lasix, and echo wnl [facility] nursing needed, PT needed Discharge Planning dc today called CM will Manjeet Lopes MD Jul 27, 2017 10:01
[2017-07-27 11:51] LABS: PHOS SERINE AB IGA LESS THAN 20 U/mL (<20)
--- NOTE | 2017-07-27 12:56 | HHI.PR ---
Subjective Remarks Better today. Walked in halls.On Coumadin . Path on pericardial biopsy shows Adenocarcinoma. Objective Vital Signs Date Time Temp Pulse Resp B/P (MAP) Pulse Ox O2 Delivery O2 Flow Rate FiO2 07/27/17 11:03 97 Nasal Cannula 2.00 07/27/17 10:00 75 07/27/17 09:00 70 07/27/17 08:20 98 Nasal Cannula 2.00 07/27/17 08:00 74 07/27/17 07:23 97 Nasal Cannula 2.00 07/27/17 07:23 97.9 70 16 93/62 (72) 97 07/27/17 07:00 85 07/27/17 06:36 72 07/27/17 05:28 77 07/27/17 04:34 75 07/27/17 03:25 98.2 78 16 83/54 (64) 97 07/27/17 03:25 97 Nasal Cannula 2.00 07/27/17 03:03 78 07/27/17 02:20 92 07/27/17 01:12 79 07/27/17 00:16 81 07/26/17 23:22 98.3 91 17 112/59 (76) 96 07/26/17 23:22 96 Nasal Cannula 2.00 07/26/17 23:22 82 07/26/17 22:30 96 07/26/17 21:00 92 07/26/17 20:12 92 07/26/17 19:30 98.5 94 18 86/58 (67) 98 07/26/17 19:30 93 07/26/17 19:30 98 Nasal Cannula 2.00 07/26/17 18:00 93 07/26/17 17:05 2.00 07/26/17 17:00 98 07/26/17 16:00 95 07/26/17 15:16 98.1 93 20 97/58 (71) 98 07/26/17 15:16 98 Nasal Cannula 2.00 07/26/17 15:00 90 07/26/17 14:00 96 07/26/17 13:00 94 I/O 07/26/17 07/26/17 07/26/17 07/27/17 07/27/17 07/27/17 07:00 15:00 23:00 07:00 15:00 23:00 Intake Total 720 ml 840 ml 360 ml Output Total 700 ml 1500 ml 900 ml Balance 20 ml -660 ml -540 ml Intake Oral 720 ml 840 ml 360 ml Output Urine Total 700 ml 1500 ml 900 ml # Voids 2 # Bowel Movements 1 1 1 Result Diagram: 07/25/1760007/25/17600 Objective Remarks GENERAL: Thinly built elderly lady who is alert. HEENT: Head normocephalic. Pupils reactive and equal. Tongue is dry. Throat is clear. Nasal mucosa is clear. NECK: Supple without venous distension. No thyromegaly or lymphadenopathy. CHEST: Distant breath sounds .Occ Wheeze. CARDIAC: Heart sounds irregular S1, S2 with no murmur or rub. ABDOMEN: Soft, scaphoid. No masses, no organomegaly or tenderness. EXTREMITIES:No lesions,mild edema. NEUROLOGIC: Reflexes are normal. There were no gross motor deficits. RECTAL: Exam is deferred. SKIN: Warm, dry. Assessment and Plan Assessment and Plan IMPRESSION 1. Basilar pneumonia with hypoxemia. 2. Rule out pulmonary embolism. 3. COPD with emphysema and chronic bronchitis 4. Status post pericardial window placement for pericardial effusion. 5. History of nicotine dependency. 6. Dehydration resolved 7. Metastatic Adeno CA. Plan : 1. Coumadin 5 mg daily 2. O2 2 L N/C and arrange home O2 3. D/C Lovenox 4. Up with help 5. Lasix 20 mg po daily. 6. Home with home health 7. Cont Spiriva , 1 cap Inhaled daily 8 Will F/U as OP in 2 weeks Renny Cox MD Jul 27, 2017 12:56
--- NOTE | 2017-07-30 09:57 | HHI.DS ---
Discharge Summary Admission Date Jul 16, 2017 at 12:16 Discharge Date: Jul 27, 2017 Admitting Diagnosis Severe sepsis (1) Pericardial effusion with cardiac tamponade ICD Code: I31.3 - Pericardial effusion (noninflammatory); I31.4 - Cardiac tamponade Status: Acute (2) Hypoxemia ICD Code: R09.02 - Hypoxemia (3) Metastatic adenocarcinoma ICD Code: C79.9 - Secondary malignant neoplasm of unspecified site (4) Non-small cell lung cancer (NSCLC) ICD Code: C34.90 - Malignant neoplasm of unspecified part of unspecified bronchus or lung (5) Pulmonary emboli ICD Code: I26.99 - Other pulmonary embolism without acute cor pulmonale Procedures 07/16-pericardial window Brief History - From Admission Admitting Physician Hx on day of admission : This is a 77-year-old female that presented from PCP office via ambulance due to hypoxia and shortness of breath. She was seen at [facility] diagnosed with pneumonia and discharged with a prescription for azithromycin, at that time her BP in P was within normal limits, and troponin was notably less than 0.02, and influenza antigen negative. Last evening it was reported by her in the middle of the night the patient went to the bathroom and fell question unknown if there was any LOC, her daughter picked her up and put her back to bed . This a.m., she was transported by family for follow-up with her PCP today as directed, but while in the office, she passed out. Per EMS, she was cyanotic in the doctor's office. Her only complaint is of weakness and difficulty breathing. She denied any chest pain or abdominal pain. Upon admission to the ED today the patient was noted to have an elevated lactate level, mild leukocytosis with a metabolic acidosis. The patient was noted to be hypotensive systolic blood pressure in the 70s, venous ABG was drawn her SVO2 was notably 58. The patient was bolused with 2 L IV fluid, and received azithromycin 500 mg, vancomycin 1 g, and cefepime 2 g. a central line was placed and the patient was initiated on norepinephrine infusion .The patient is was notably audibly wheezing initially on nonrebreather received 2 DuoNeb treatments and subsequently had been weaned down to nasal cannula 3 L with O2 saturation greater than 92%. A D-dimer was ordered. The patient upon presentation to the ED to be lethargic, easily arousable and answering questions appropriately. Upon entering the ED, the patient was lethargic but arousable answering my questions, blood pressure was 159/over 70s on norepinephrine at 2 mcgs/minute. Imaging studies CT brain, and chest are still pending. Critical care medicine was consulted. PE at Discharge GENERAL: Elderly lady, thin, sitting on her chair next to her bed. Quite comfortable on the chair today. On 3 L nasal cannular. SKIN: Warm and dry. dressing left upper abdomen with no obvious discharge/ erythema/plus HEAD: Normocephalic. Atraumatic EYES: No scleral icterus. No injection or drainage. NECK: Supple, trachea midline. No JVD. No neck rigidity. CARDIOVASCULAR: Regular rate and rhythm without murmurs, gallops, or rubs. RESPIRATORY: Breath sounds equal bilaterally. Bilateral Basilar crepitations. No respiratory accessory muscle use. Quite comfortable at rest. GASTROINTESTINAL: Abdomen soft, non-tender, nondistended. MUSCULOSKELETAL: No cyanosis, or edema. No calf asymmetry or edema Neuro: Awake, alert, no focal deficits. Hospital Course Patient initially admitted to intensive care unit with severe sepsis/COPD exacerbation/pericardial tamponade requiring placement of pericardial window on July 16, [address] Huber. She was found to have metastatic adenocarcinoma on pericardial biopsy thought to be primarily from lung during this admission. Fluid studies were exudative Patient had significant hypoxia due to all the above during hospitalization and required oxygen supplementation. She was treated with nebulizer treatments, IV antibiotics. She is being followed by pulmonology service and oncology service. Patient is to have outpatient PET scan and further workup with oncology team for her newly diagnosed metastatic cancer. She was also found to have pulmonary embolism during this admission for which she was started on Coumadin. On the day of discharge, her Coumadin was therapeutic and she no longer require Lovenox overlap. Patient was noted to have low blood pressures while in hospital. She was receiving Lasix therapy due to her dyspnea from pleural effusions. However this lady is a very healthy thin elderly before she came to the hospital this admission. She was never on antihypertensives previously. She is also on scheduled doses of tramadol and gabapentin at home. Sepsis was resolved and treated with antibiotics. Therefore Lasix was discontinued upon discharge due to hypotension. Patient was also noted to have LFT abnormality which was initially followed by GI. Thought to be secondary to sepsis. Ultrasound and CAT scans all negative. Patient has abnormal thyroid function test. This would be repeated in 4-6 weeks upon discharge once critical illness is resolved. Home health care and home PT was arranged. Home oxygen arranged. Patient is to follow up with oncology team this week within 2-3 days. Patient while in hospital does not want to discuss her diagnosis with other family members except for her . She stated she would talk to them upon discharge. Therefore we did not discuss any of her conditions with her family members. However I did give her our phone number in case the family have questions after she informs them . She stated her daughter will likely call. Pt Condition on Discharge: Good Discharge Disposition: Disch w/ Home Health Serv Discharge Time: > 30 minutes Discharge Instructions DIET: Follow Instructions for: Coumadin (Warfarin) Diet Activities you can perform: Regular-No Restrictions New Medications: Oxygen (O2) (Oxygen (O2)) Device LITER MATIAS.CANULA CONTINUOUS for Prevent Hypoxemia, #3 Oxygen Concentrator Portable Gaseous 3 L/min via Nasal Canula Continuous For 99 months Oxygen tank (Oxygen tank) 1 Ea Tank LITER MATIAS.CANULA CONTINUOUS for HYPOXEMIA PREVENTION, #3 Oxygen Concentrator Portable Gaseous 3 L/min via Nasal Cannula Continuous For 99 months Montelukast (Montelukast) 10 Mg Tab 10 MG PO HS for Broncospasm for 30 Days, #30 TAB Pantoprazole (Pantoprazole) 40 Mg Tab 40 MG PO DAILY@06 for Dyspepsia for 30 Days, #30 TAB Potassium Chloride ER (Klor-Con 10) 10 Meq Tab 10 MEQ PO Q12HR for Electrolyte Replacement for 10 Days, #20 TAB Tiotropium Inh (Spiriva Handihaler) 18 Mcg Cap 18 MCG INH DAILY for Broncospasm for 30 Days, #30 CAP 1 capsule = 18 mcg Warfarin (Coumadin) 2.5 Mg Tab 2.5 MG PO DAILY@1600 for Blood Clot Prevention, #15 TAB [Budeson-Formot 160-4.5 Mcg Inh] () 60 PUFF AERO 2 PUFF INH Q12HR Continued Medications: Albuterol 8.5 GM Inh (Proair Hfa 8.5 GM Inh) 90 Mcg/Act Aer 1 PUFF INH Q4H PRN for SHORTNESS OF BREATH, #1 INHALER 0 Refills (This prescription has been renewed) 108 mcg/actuation Alprazolam (Alprazolam) 0.25 Mg Tab 0.25 MG PO BID PRN for ANXIETY, TAB 0 Refills Gabapentin (Gabapentin) 800 Mg Tab 800 MG PO QID, #90 TAB 0 Refills Promethazine-Codeine Liq (Promethazine-Codeine Liq) 6.25-10 Mg/5 Ml Syrp 5 ML PO Q6H PRN for COUGH AND/OR COLD SYMPTOMS, #60 ML 0 Refills Tramadol (Tramadol) 50 Mg Tab 100 MG PO Q6H PRN for PAIN, TAB 0 Refills Discontinued Medications: Azithromycin (Azithromycin) 250 Mg Tab 250 MG PO DIRECTED for Infection, #6 TAB 0 Refills Take 2 tabs (500 mg) on day 1 then 1 tab daily x 4 days. Prednisone (Prednisone) 20 Mg Tab 40 MG PO DIRECTED for 4 Days, TAB 0 Refills Manjeet Abdalla MD Jul 30, 2017 09:57
== END 2017-07-27 13:47 | disposition home health service (06) | DRG 853 ==
LOC: NEPC 08:51 → NEDA 12:16 → HCVI 13:40 → HCPC 07-23 11:45
PROVIDERS: ADMIT Internal Medicine; ATTEND Internal Medicine
PROC: 5A1935Z Respiratory Ventilation, Less than 24 Consecutive Hours (ICD-10-PCS; 2017-07-16)
PROC: 5A09357 Assistance with Respiratory Ventilation, Less than 24 Consecutive Hours, Continuous Positive Airway Pressure (ICD-10-PCS; 2017-07-16)
PROC: 05HM33Z Insertion of Infusion Device into Right Internal Jugular Vein, Percutaneous Approach (ICD-10-PCS; 2017-07-16)
PROC: 0W9D00Z Drainage of Pericardial Cavity with Drainage Device, Open Approach (ICD-10-PCS; principal; 2017-07-16 14:43)
PROC: 03HY32Z Insertion of Monitoring Device into Upper Artery, Percutaneous Approach (ICD-10-PCS; 2017-07-17)
PROC: 4A133B1 Monitoring of Arterial Pressure, Peripheral, Percutaneous Approach (ICD-10-PCS; 2017-07-17)
PROC: 4A133J1 Monitoring of Arterial Pulse, Peripheral, Percutaneous Approach (ICD-10-PCS; 2017-07-17)
DX: A41.9 Sepsis, unspecified organism (principal); G93.41 Metabolic encephalopathy; J96.01 Acute respiratory failure with hypoxia; I26.99 Other pulmonary embolism without acute cor pulmonale; K72.00 Acute and subacute hepatic failure without coma; I31.4 Cardiac tamponade; J18.9 Pneumonia, unspecified organism; J44.0 Chronic obstructive pulmonary disease with (acute) lower respiratory infection; D68.9 Coagulation defect, unspecified; E87.2 Acidosis; N17.9 Acute kidney failure, unspecified; J44.1 Chronic obstructive pulmonary disease with (acute) exacerbation; C34.90 Malignant neoplasm of unspecified part of unspecified bronchus or lung; I31.3 Pericardial effusion (noninflammatory); C79.89 Secondary malignant neoplasm of other specified sites; G62.9 Polyneuropathy, unspecified; M41.9 Scoliosis, unspecified; E86.0 Dehydration; R55 Syncope and collapse; R65.20 Severe sepsis without septic shock; W19.XXXA Unspecified fall, initial encounter; M19.90 Unspecified osteoarthritis, unspecified site; K44.9 Diaphragmatic hernia without obstruction or gangrene; F40.240 Claustrophobia; F17.210 Nicotine dependence, cigarettes, uncomplicated; I08.3 Combined rheumatic disorders of mitral, aortic and tricuspid valves; R73.9 Hyperglycemia, unspecified; Z98.51 Tubal ligation status; Z95.1 Presence of aortocoronary bypass graft; Z90.710 Acquired absence of both cervix and uterus; Z87.01 Personal history of pneumonia (recurrent); M51.36 Other intervertebral disc degeneration, lumbar region; I48.91 Unspecified atrial fibrillation; Z80.0 Family history of malignant neoplasm of digestive organs; R59.0 Localized enlarged lymph nodes; K76.89 Other specified diseases of liver; D63.8 Anemia in other chronic diseases classified elsewhere; R74.8 Abnormal levels of other serum enzymes; E88.09 Other disorders of plasma-protein metabolism, not elsewhere classified; R97.1 Elevated cancer antigen 125 [CA 125]; R20.9 Unspecified disturbances of skin sensation; D64.9 Anemia, unspecified
CPT/HCPCS: 36556; 36600; 71010; 71275; 74177; 76705; 80048; 80053; 80074; 80076; 80202; 81001; 81235; 82105; 82140; 82150; 82248; 82378; 82550; 82552; 82805; 82945; 82948; 83036; 83605; 83615; 83690; 83735; 83880; 83986; 84100; 84132; 84157; 84439; 84443; 84481; 84484; 84702; 85007; 85025; 85027; 85044; 85060; 85384; 85610; 85652; 85730; 86140; 86146; 86147; 86148; 86300; 86301; 86304; 86316; 86850; 86900; 86901; 86920; 87015; 87040; 87070; 87102; 87116; 87205; 87206; 87449; 87641; 88112; 88305; 88341; 88342; 88360; 88377; 88381; 89051; 93005; 93306; 93318; 93970; 94002; 94003; 94060; 94150; 94618; 94640; 94664; 94667; 94668; 96360; 96365; C9113; J0171; J0456; J0461; J0690; J0692; J1650; J1815; J1940; J1956; J2370; J2405; J2765; J2920; J2930; J3010; J3370; J3430; J3475; J3480; J7030; J7040; J7050; J7060; J7070; J7512; J7613; J7626; P9045; Q9963; Q9967